=== PATIENT | female | born 1985 | race American Indian/Alaskan Native ===

== ENCOUNTER 2016-02-26 11:22 | Inpatient (IN) | payer MEDICARE ==
[2016-02-26] MEDS ORDERED: TYLENOL PO ONE (11:57)
--- NOTE | 2016-02-26 12:00 | Emergency Department Report ---
Chief Complaint: Chest Pain Stated Complaint: CHEST PAIN/LWR BACK /LT ARM PAIN Time Seen by Provider: 02/26/16 11:56 - HPI History of Present Illness: 30-year-old female with past medical history of sickle cell comes in for complaint of cold symptoms for 2 days she reports she is having chest pain and body aches and back pain with left arm pain. Patient reports she see her sickle cell were present more of her back and her arms but never her chest. Patient states she has episodic shortness of breath. Complains of a cough and vomiting denies any diarrhea patient is noted to have a fever in triage as well as patient reports she had a fever last night. - Exam Vital Signs: Vital Signs 02/26/16 11:37 Temperature 98.3 F Pulse Rate 119 H Respiratory 22 Rate Blood Pressure 134/73 O2 Sat by Pulse 100 Oximetry Physical Exam: Patient's alert and oriented 3. Patient's be uncomfortable. Vascular tachycardic Respiratory clear to auscultation there, Mid Chest tenderness. Extremities: No edema appreciated MSE screening note: Focused history and physical exam performed. Due to findings the following was ordered: ordered labs and cxr ED Disposition for MSE Condition: Stable
[2016-02-26 13:04] LABS: Hematocrit 30.8 % (30.3-42.9); Hemoglobin 9.8 gm/dl (10.1-14.3); Mean Corpuscular HGB Conc 32 % (30-34); Mean Corpuscular Volume 75 fl (79-97); Platelet Count 492 K/mm3 (140-440); Red Blood Count 4.08 M/mm3 (3.65-5.03); White Blood Count 10.3 K/mm3 (4.5-11.0)
[2016-02-26 13:05] LABS: Mean Corpuscular Hemoglobin 24 pg (28-32)
[2016-02-26 13:06] LABS: Red Cell Distribution Width 22.1 % (13.2-15.2)
[2016-02-26 13:45] LABS: Basophils % (Manual) 0 % (0.0-1.8); Blastocytes % (Manual) 0 %
[2016-02-26 13:46] LABS: Anisocytosis 1+; Diff Status Complete; Hypochromasia 1+; Microcytosis 1+; Poikilocytosis 1+; Spherocytes Few; Target Cells 2+
[2016-02-26 14:18] LABS: Alanine Aminotransferase 14 units/L (7-56); Albumin 3.9 g/dL (3.9-5); Albumin/Globulin Ratio 1.5 %; Alkaline Phosphatase 65 units/L (35-129); Bilirubin,Total 0.7 mg/dL (0.1-1.2); Blood Urea Nitrogen 5 mg/dL (7-17); Calcium 8.8 mg/dL (8.4-10.2); Carbon Dioxide 26 mmol/L (22-30); Chloride 99.8 mmol/L (98-107); Glucose 109 mg/dL (65-100); Potassium 4.2 mmol/L (3.6-5.0); Sodium 138 mmol/L (137-145); Total Protein 6.5 g/dL (6.3-8.2)
[2016-02-26 14:20] LABS: Anion Gap 16 mmol/L
--- NOTE | 2016-02-26 15:44 | XRay Report ---
PA and lateral chest: A focal area of linear atelectasis is noted at the left base. This was not present on prior study of December 28, 2015. The lungs otherwise appear clear the heart is normal in size. These findings are unchanged. Impression: Focal left atelectasis.
[2016-02-26] MEDS ORDERED: TORADOL IV ONE (16:59)
[2016-02-26] MEDS ORDERED: DILAUDID IV ONE (16:59)
[2016-02-26] MEDS ORDERED: BENADRYL IV ONE (16:59)
[2016-02-26] MEDS ORDERED: ZOFRAN IV ONE (16:59)
[2016-02-26] MEDS ORDERED: D5NS 0.2% 1,000 ML IV SCH (17:00)
[2016-02-26 18:01] LABS: Reticulocyte % 3.32 % (0.78-2.58)
[2016-02-26 18:12] LABS: INR 0.99 (0.87-1.13)
[2016-02-26 18:13] LABS: Partial Thromboplastin Time 29.2 Sec. (24.2-36.6)
--- NOTE | 2016-02-26 18:50 | Emergency Department Report ---
ED General Adult HPI - General Chief complaint: Chest Pain Stated complaint: CHEST PAIN/LWR BACK /LT ARM PAIN Time Seen by Provider: 02/26/16 11:56 Source: patient, old records reviewed Mode of arrival: Ambulatory Limitations: No Limitations - History of Present Illness Initial comments: 30-year-old female with past medical history of sickle cell disease and left arm DVT currently on Coumadin and presents to the hospital complains of cough and cold symptoms of sickle cell crisis with past 2 days. Patient states he is coughing which is productive of green sputum. Yesterday she had a fever 101.7 at home. She is having anterior chest wall pain worse with palpation rated 8/ 10 in intensity, lower back pain, and generalized body aches. No reports of nausea, vomiting, or diarrhea. Increased appetite and by mouth intake recorded. Patient takes MS Contin and Percocet at home as needed for pain. [place]ider oncologist: None Severity scale (0 -10): 10 - Related Data Previous Rx's Medication Instructions Recorded Last Taken Type Amitriptyline [Elavil] 25 mg PO QHS #30 tablet 04/07/15 12/27/15 Rx Folic Acid [Folvite] 1 mg PO QDAY tablet 05/05/15 12/27/15 Rx Morphine ER [Ms Contin ER] 30 mg PO Q8HR #30 tablet 05/05/15 12/27/15 Rx Multivitamin Tab [Multiple Vitamin 1 each PO QDAY tablet 05/05/15 12/27/15 Rx TAB (Theragran)] diphenhydrAMINE [Benadryl CAP] 25 mg PO Q6H PRN #30 capsule 05/05/15 12/27/15 Rx Warfarin [Coumadin] 7.5 mg PO QDAY #30 tablet 10/17/15 12/27/15 Rx oxyCODONE /ACETAMINOPHEN [Percocet 1 tab PO Q6HR PRN #20 tablet 01/01/16 Unknown Rx 5/325 mg] Allergies Allergy/AdvReac Type Severity Reaction Status Date / Time No Known Allergies Allergy Verified 03/29/15 20:45 ED Review of Systems ROS: Stated complaint: CHEST PAIN/LWR BACK /LT ARM PAIN Other details as noted in HPI Comment: All other systems reviewed and negative Other: Constitutional: As per HPI Eyes: No eye pain visual changes or discharge ENT: No ear pain or throat pain Neck: Denies pain Respiratory: As per HPI Cardiovascular: Denies palpitations, syncope GI: Denies abdominal pain, nausea, vomiting, diarrhea : Denies dysuria, urinary frequency, or urgency Musculoskeletal: As per HPI Skin: Denies rash, lesions, erythema Neurologic: Denies headache, numbness, weakness Psychiatric: Denies suicidal ideation, hallucinations ED Past Medical Hx - Past Medical History Previous Medical History?: Yes Hx Congestive Heart Failure: No Hx Diabetes: No Hx Sickle Cell Disease: Yes Hx Asthma: No Hx COPD: No Hx HIV: No Additional medical history: DVT left arm 07/2015 - Surgical History Past Surgical History?: Yes Additional Surgical History: X 2. TONSILLECTOMY - Social History Smoking Status: Never Smoker Substance Use Type: Prescribed - Medications Home Medications: Home Medications Medication Instructions Recorded Confirmed Last Taken Type Amitriptyline [Elavil] 25 mg PO QHS #30 tablet 04/07/15 12/28/15 12/27/15 Rx Folic Acid [Folvite] 1 mg PO QDAY tablet 05/05/15 12/28/15 12/27/15 Rx Morphine ER [Ms Contin ER] 30 mg PO Q8HR #30 tablet 05/05/15 12/28/15 12/27/15 Rx Multivitamin Tab [Multiple Vitamin 1 each PO QDAY tablet 05/05/15 12/28/1501/29 Rx TAB (Theragran)] diphenhydrAMINE [Benadryl CAP] 25 mg PO Q6H PRN #30 capsule 05/05/15 12/28/15 Rx Warfarin [Coumadin] 7.5 mg PO QDAY #30 tablet 10/17/15 12/28/15 12/27/15 Rx oxyCODONE /ACETAMINOPHEN [Percocet 1 tab PO Q6HR PRN #20 tablet 01/01/16 Unknown Rx 5/325 mg] ED Physical Exam - General Limitations: No Limitations - Other Other exam information: General: Moderate distress secondary to pain Head exam: Atraumatic, normocephalic Eyes exam: Normal appearance, pupils equal reactive to light, extraocular movements intact ENT: Moist mucous membrane, normal oropharynx Neck exam: Normal inspection, full range of motion, no meningismus nontender Respiratory exam: Clear to auscultation bilateral, no wheezes, rales, crackles, anterior chest wall tenderness Cardiovascular: Regular rhythm Abdomen: Soft, nondistended, and nontender, with normal bowel sounds, no rebound, or guarding Extremity: Full range of motion normal inspection no deformity Back: Normal Inspection, full range of motion Neurologic: Alert, oriented x3, cranial nerves intact, no motor or sensory deficit Psychiatric: normal affect, normal mood Skin: Warm, dry, intact ED Course Vital Signs 02/26/16 02/26/16 02/26/16 11:37 15:44 16:00 Temperature 98.3 F 98.4 F 98.6 F Pulse Rate 119 H 99 H 114 H Respiratory 22 18 18 Rate Blood Pressure 134/73 131/83 Blood Pressure 121/65 [Left] O2 Sat by Pulse 100 99 99 Oximetry 02/26/16 16:14 Temperature Pulse Rate Respiratory 18 Rate Blood Pressure Blood Pressure [Left] O2 Sat by Pulse 99 Oximetry - Reevaluation(s) Reevaluation #1: 02/26/16 18:49 Patient treated with Dilaudid, Toradol, IV fluids, Zofran, and Benadryl in the ED ED Medical Decision Making - Lab Data Result diagrams: 02/26/16 12:11 02/26/16 13:40 Lab Results 02/26/16 02/26/16 02/26/16 Range/Units 12:11 13:40 17:20 WBC 10.3 (4.5-11.0) K/mm3 RBC 4.08 (3.65-5.03) M/mm3 Hgb 9.8 L (10.1-14.3) gm/dl Hct 30.8 (30.3-42.9) % MCV 75 L (79-97) fl MCH 24 L (28-32) pg MCHC 32 (30-34) % RDW 22.1 H (13.2-15.2) % Plt Count 492 H (140-440) K/mm3 Lymph % (Auto) Roller Turner Lymph # Roller Turner Add Manual Diff Complete Total Counted 100 Seg Neuts % (Manual) 52.0 (40.0-70.0) % Band Neutrophils % 0 % Lymphocytes % (Manual) 37.0 H (13.4-35.0) % Reactive Lymphs % (Man) 0 % Monocytes % (Manual) 4.0 (0.0-7.3) % Eosinophils % (Manual) 7.0 H (0.0-4.3) % Basophils % (Manual) 0 (0.0-1.8) % Metamyelocytes % 0 % Myelocytes % 0 % Promyelocytes % 0 % Blast Cells % 0 % Nucleated RBC % 1.0 H (0.0-0.9) % Seg Neutrophils # Man 5.4 (1.8-7.7) K/mm3 Band Neutrophils # 0.0 K/mm3 Lymphocytes # (Manual) 3.8 (1.2-5.4) K/mm3 Abs React Lymphs (Man) 0.0 K/mm3 Monocytes # (Manual) 0.4 (0.0-0.8) K/mm3 Eosinophils # (Manual) 0.7 H (0.0-0.4) K/mm3 Basophils # (Manual) 0.0 (0.0-0.1) K/mm3 Metamyelocytes # 0.0 K/mm3 Myelocytes # 0.0 K/mm3 Promyelocytes # 0.0 K/mm3 Blast Cells # 0.0 K/mm3 WBC Morphology Not Reportable Hypersegmented Neuts Not Reportable Hyposegmented Neuts Not Reportable Hypogranular Neuts Not Reportable Smudge Cells Not Reportable Toxic Granulation Not Reportable Toxic Vacuolation Not Reportable Dohle Bodies Not Reportable Pelger-Huet Anomaly Not Reportable Manjula Rods Not Reportable Platelet Estimate Appears normal Clumped Platelets Not Reportable Plt Clumps, EDTA Not Reportable Large Platelets Not Reportable Giant Platelets Not Reportable Platelet Satelliting Not Reportable Plt Morphology Comment Not Reportable RBC Morphology Not Reportable Dimorphic RBCs Not Reportable Polychromasia Not Reportable Hypochromasia 1+ Poikilocytosis 1+ Anisocytosis 1+ Microcytosis 1+ Macrocytosis Not Reportable Spherocytes Few Pappenheimer Bodies Not Reportable Sickle Cells Not Reportable Target Cells 2+ Tear Drop Cells Not Reportable Ovalocytes Not Reportable Helmet Cells Not Reportable Starr-[place] Bodies Not Reportable [place] Rings Not Reportable Luke Cells Not Reportable Bite Cells Not Reportable Crenated Cell Not Reportable Elliptocytes Not Reportable Acanthocytes (Spur) Not Reportable Rouleaux Not Reportable Hemoglobin C Crystals Not Reportable Schistocytes Not Reportable Malaria parasites Not Reportable Percent Retic 3.32 H (0.78-2.58) % Jack Bodies Not Reportable Hem Pathologist Commnt No PT (12.2-14.9) Sec. INR (0.87-1.13) APTT (24.2-36.6) Sec. Sodium 138 (137-145) mmol/L Potassium 4.2 (3.6-5.0) mmol/L Chloride 99.8 (98-107) mmol/L Carbon Dioxide 26 (22-30) mmol/L Anion Gap 16 mmol/L BUN 5 L (7-17) mg/dL Creatinine 0.4 L (0.7-1.2) mg/dL Estimated GFR > 60 ml/min BUN/Creatinine Ratio 12.50 % Glucose 109 H (65-100) mg/dL Calcium 8.8 (8.4-10.2) mg/dL Total Bilirubin 0.7 (0.1-1.2) mg/dL AST 26 (5-40) units/L ALT 14 (7-56) units/L Alkaline Phosphatase 65 (35-129) units/L Total Protein 6.5 (6.3-8.2) g/dL Albumin 3.9 (3.9-5) g/dL Albumin/Globulin Ratio 1.5 % 02/26/16 Range/Units 17:20 WBC (4.5-11.0) K/mm3 RBC (3.65-5.03) M/mm3 Hgb (10.1-14.3) gm/dl Hct (30.3-42.9) % MCV (79-97) fl MCH (28-32) pg MCHC (30-34) % RDW (13.2-15.2) % Plt Count (140-440) K/mm3 Lymph % (Auto) Lymph # Add Manual Diff Total Counted Seg Neuts % (Manual) (40.0-70.0) % Band Neutrophils % % Lymphocytes % (Manual) (13.4-35.0) % Reactive Lymphs % (Man) % Monocytes % (Manual) (0.0-7.3) % Eosinophils % (Manual) (0.0-4.3) % Basophils % (Manual) (0.0-1.8) % Metamyelocytes % % Myelocytes % % Promyelocytes % % Blast Cells % % Nucleated RBC % (0.0-0.9) % Seg Neutrophils # Man (1.8-7.7) K/mm3 Band Neutrophils # K/mm3 Lymphocytes # (Manual) (1.2-5.4) K/mm3 Abs React Lymphs (Man) K/mm3 Monocytes # (Manual) (0.0-0.8) K/mm3 Eosinophils # (Manual) (0.0-0.4) K/mm3 Basophils # (Manual) (0.0-0.1) K/mm3 Metamyelocytes # K/mm3 Myelocytes # K/mm3 Promyelocytes # K/mm3 Blast Cells # K/mm3 WBC Morphology Hypersegmented Neuts Hyposegmented Neuts Hypogranular Neuts Smudge Cells Toxic Granulation Toxic Vacuolation Dohle Bodies Pelger-Huet Anomaly Manjula Rods Platelet Estimate Clumped Platelets Plt Clumps, EDTA Large Platelets Giant Platelets Platelet Satelliting Plt Morphology Comment RBC Morphology Dimorphic RBCs Polychromasia Hypochromasia Poikilocytosis Anisocytosis Microcytosis Macrocytosis Spherocytes Pappenheimer Bodies Sickle Cells Target Cells Tear Drop Cells Ovalocytes Helmet Cells Starr-[place] Bodies [place] Rings [place] Cells Bite Cells Crenated Cell Elliptocytes Acanthocytes (Spur) Rouleaux Hemoglobin C Crystals Schistocytes Malaria parasites Percent Retic (0.78-2.58) % Jack Bodies Hem Pathologist Commnt PT 13.0 (12.2-14.9) Sec. INR 0.99 (0.87-1.13) APTT 29.2 (24.2-36.6) Sec. Sodium (137-145) mmol/L Potassium (3.6-5.0) mmol/L Chloride (98-107) mmol/L Carbon Dioxide (22-30) mmol/L Anion Gap mmol/L BUN (7-17) mg/dL Creatinine (0.7-1.2) mg/dL Estimated GFR ml/min BUN/Creatinine Ratio % Glucose (65-100) mg/dL Calcium (8.4-10.2) mg/dL Total Bilirubin (0.1-1.2) mg/dL AST (5-40) units/L ALT (7-56) units/L Alkaline Phosphatase (35-129) units/L Total Protein (6.3-8.2) g/dL Albumin (3.9-5) g/dL Albumin/Globulin Ratio % - EKG Data -: EKG Interpreted by Me (sinus rate 117) - EKG Data When compared to previous EKG there are: no significant change (compared to ) - Radiology Data Radiology results: report reviewed (chest x-ray: Left focal atelectasis) - Medical Decision Making Patient has persistent tachycardia which could be due from decreased by mouth intake as well as pain. Denies subtherapeutic. Plan to admit patient to the hospital for further monitoring and treatment - Differential Diagnosis pneumonia, acute chest, viral syndrome, sickle cell crisis Critical Care Time: No Critical care attestation.: If time is entered above; I have spent that time in minutes in the direct care of this critically ill patient, excluding procedure time. ED Disposition Clinical Impression: Sickle-cell disease with pain, Hx of deep venous thrombosis, Subtherapeutic international normalized ratio (INR), URI (upper respiratory infection), Costochondritis Disposition: OP ADMITTED IP TO THIS HOSP Is pt being admited?: Yes Condition: Stable Time of Disposition: 18:53 (Dr rosado/hosp)
--- NOTE | 2016-02-27 00:42 | Event Note ---
Date: 02/26/16 See H/p in reports [facility]
[2016-02-27] MEDS ORDERED: TYLENOL PO PRN (00:46)
[2016-02-27] MEDS ORDERED: DULCOLAX PR PRN (00:46)
[2016-02-27] MEDS ORDERED: MILK OF MAGNESIA PO PRN (00:46)
[2016-02-27] MEDS ORDERED: AMBIEN PO PRN (00:46)
[2016-02-27] MEDS ORDERED: D5NS 0.2% 0 ML IV ONE (01:16)
[2016-02-27] MEDS ORDERED: DILAUDID ONE (01:17)
[2016-02-27] MEDS ORDERED: D5NS 1,000 ML IV ONE (01:28)
--- NOTE | 2016-02-27 01:28 | Admit Criteria Form ---
Admission Criteria Documentation: PAIN MANAGEMENT GR Clinical Indications for Admission to Inpatient Care (Place 'X' for any and all applicable criteria): Hospital admission is needed for appropriate care of the patient because of ANY ONE of the following are present (1)(2)(3)(4)(5): [X ]I. Severe pain requiring acute inpatient management as indicated by ALL of the following (2)(5)(10): [ X]a) Continuous or frequent (eg, every 2 to 4 hours) parenteral analgesics required [A] [ X]b) Necessity (ie, alternative approaches not effective) for analgesic regimen that can only be performed or initiated in inpatient setting [ ]II. Pain causing debilitation to the point of inability to function or be supported at any other level of care [ ]III. Severe side effects from pain medications as indicated by ANY ONE of the following (12)(13)(14)(15): [ ]a) Uncontrollable seizures [ ]b) Cardiac arrhythmias [ ]c) Severe volume depletion [ ]d) Vomiting that is uncontrollable at any other level of care [ ]e) Altered mental status ([place] coma scale score less than 13) [ ]f) Obstipation with inadequate GI function to maintain nutrition [ ]g) Dehydration that is severe or persistent The original [employer] content created by [employer] has been revised. The portions of the content which have been revised are identified through the use of italic text or in bold, and [facility] has neither reviewed nor approved the modified material. All other unmodified content is copyright [employer]. Please see references footnoted in the original [facility] edition 2016 Admission Criteria Met: Yes
[2016-02-27] MEDS ORDERED: BENADRYL PO ONE (01:40)
[2016-02-27] MEDS: D5NS 1,000 ML IV SCH ×2 (01:40→12:54)
[2016-02-27] MEDS: DILAUDID IV PRN ×5 (01:50→21:01)
[2016-02-27] MEDS: BENADRYL PO PRN ×4 (01:55→21:05)
[2016-02-27] MEDS: MS CONTIN ER PO SCH ×3 (03:41→17:23)
--- NOTE | 2016-02-27 07:43 | History and Physical Report ---
CHIEF COMPLAINT: Chest pain, lower back pain and pain all over for 2 days. HISTORY OF PRESENT ILLNESS: A 30-year-old -[place] female with history of sickle cell disease and a left DVT, comes in for severe retrosternal chest pain and pain in the lower back and thighs and in general all over. Pain is about 10 on a scale of 1-10. Anterior chest wall pain worse with palpation. Intensity is 10/10. The patient takes MS Contin and Percocet at home. No shortness of breath, no palpitations. PAST MEDICAL HISTORY: Significant for: 1. DVT in the left arm. 2. Sickle cell disease. PAST SURGICAL HISTORY: Significant for x 2, tonsillectomy x1. SOCIAL HISTORY: Does not smoke. No alcohol, no recreational drugs. FAMILY HISTORY: No hypertension, no diabetes. No sickle cell disease. Sickle cell trait present. CURRENT MEDICATIONS: Morphine 30 mg p.o. every 8 hours, Percocet 5/325 p.o. every 6 hours, and Coumadin 7.5 once a day. REVIEW OF SYSTEMS: Significant for; CONSTITUTIONAL: No weight loss, no weight gain. No fever, no chills. Low-grade fever present. HEENT: No blurred vision, no diplopia. No sore throat. CARDIOVASCULAR SYSTEM: Chest pain present. Retrosternal and precordial. Also, tenderness on palpation. No shortness of breath. RESPIRATORY SYSTEM: No cough. No shortness of breath. GASTROINTESTINAL: No nausea, no vomiting, no diarrhea. GENITOURINARY SYSTEM: No dysuria, no flank pain. MUSCULOSKELETAL SYSTEM: Low back pain mornings, myalgias allover present. INTEGUMENTARY SYSTEM: No rash, no pruritus, no redness. NEUROLOGICAL SYSTEM: No syncope, no seizures. PSYCHIATRIC: Depression present. ENDOCRINE: No polyphagia, polydipsia, polyuria. HEMATOLOGIC AND LYMPHATIC: No easy bruising or bleeding. No lymphedema. ALLERGIC AND IMMUNOLOGIC SYSTEMS: No allergic rhinitis, but wheezing. A 14-point review of systems was done. PHYSICAL EXAMINATION: GENERAL: Young male, cooperative during examination. VITAL SIGNS: Temperature 98.3, pulse is 119, respirations 22, blood pressure 134/73, sats 100%. HEENT: Unremarkable. Pupils equal and reactive. NECK: Supple, no lymphadenopathy, no thyromegaly. LUNGS: Clear to auscultation and percussion. Good air entry. CARDIOVASCULAR: S1, S2 heard. No gallop, no murmur, no rub. Apical impulse in left fifth intercostal space and midclavicular line. ABDOMEN: Soft and benign. No hepatosplenomegaly. No guarding, no rigidity. Hernial orifices are normal. EXTREMITIES: Good pedal pulses. No pedal edema. CENTRAL NERVOUS SYSTEM: Alert and oriented x 4, nonfocal exam. SKIN: Normal. LABORATORY DATA: H and H is 9.8 and 30.8, platelet count is 492,000. Retic count is 3.3, it is slightly high, BUN and creatinine 5 and 0.4, glucose is 109. Liver function tests are normal. Chest x-ray was normal. ASSESSMENT AND PLAN: 1. The sickle cell crisis. The patient started on IV fluids, IV Dilaudid 1 mg every 3 hours p.r.n. along with Zofran. Also, continue morphine 30 mg every 8 hours. Check retic count. 2. Left upper extremity deep venous thrombosis . Coumadin discontinued. The patient does not need Coumadin, it has been 7 months. We will do Lovenox 40 mg subcutaneous daily. At the time of discharge, the patient is not going to be on Coumadin and the patient will be counseled about the need to Coumadin not being there after 6 months for left upper extremity deep venous thrombosis. 3. Deep venous thrombosis prophylaxis, Lovenox 40 mg subcutaneous daily. JOB# [id number] BALDEMAR/REYMUNDO [place]
[2016-02-27] MEDS: THERAGRAN Tab PO SCH (09:24)
[2016-02-27] MEDS: FOLVITE PO SCH (09:26)
[2016-02-27] MEDS ORDERED: COUMADIN PO SCH (10:00)
[2016-02-27 15:19] LABS: Hematocrit 30.9 % (30.3-42.9); Hemoglobin 10.2 gm/dl (10.1-14.3); Mean Corpuscular HGB Conc 33 % (30-34); Mean Corpuscular Volume 74 fl (79-97); Platelet Count 535 K/mm3 (140-440); Red Blood Count 4.17 M/mm3 (3.65-5.03); White Blood Count 9.7 K/mm3 (4.5-11.0)
[2016-02-27 15:20] LABS: Mean Corpuscular Hemoglobin 24 pg (28-32)
[2016-02-27 15:25] LABS: Anion Gap 14 mmol/L; Blood Urea Nitrogen 5 mg/dL (7-17); Calcium 8.3 mg/dL (8.4-10.2); Carbon Dioxide 25 mmol/L (22-30); Chloride 105.3 mmol/L (98-107); Glucose 89 mg/dL (65-100); Potassium 4.2 mmol/L (3.6-5.0); Sodium 140 mmol/L (137-145)
[2016-02-27] MEDS: ELAVIL PO SCH (21:05)
[2016-02-27] MEDS: LOVENOX SUB-Q SCH (21:06)
[2016-02-28] MEDS: DILAUDID IV PRN ×8 (00:25→22:35)
[2016-02-28] MEDS: MS CONTIN ER PO SCH ×3 (01:56→19:12)
[2016-02-28] MEDS: BENADRYL PO PRN ×2 (06:29→22:34)
[2016-02-28 08:23] LABS: Anion Gap 17 mmol/L; BUN/Creatinine Ratio 13.33; Blood Urea Nitrogen 4 mg/dL (7-17); Calcium 8.5 mg/dL (8.4-10.2); Carbon Dioxide 24 mmol/L (22-30); Chloride 105.4 mmol/L (98-107); Glucose 83 mg/dL (65-100); Potassium 3.9 mmol/L (3.6-5.0); Sodium 142 mmol/L (137-145)
[2016-02-28 08:29] LABS: Hematocrit 29.8 % (30.3-42.9); Hemoglobin 9.9 gm/dl (10.1-14.3); Mean Corpuscular HGB Conc 33 % (30-34); Mean Corpuscular Volume 74 fl (79-97); Platelet Count 545 K/mm3 (140-440); Red Blood Count 4.02 M/mm3 (3.65-5.03); White Blood Count 10.8 K/mm3 (4.5-11.0)
[2016-02-28 08:31] LABS: Mean Corpuscular Hemoglobin 25 pg (28-32); Red Cell Distribution Width 22.8 % (13.2-15.2)
[2016-02-28] MEDS: THERAGRAN Tab PO SCH (09:37)
[2016-02-28] MEDS: FOLVITE PO SCH (09:37)
[2016-02-28 11:10] LABS: Basophils % (Manual) 0 % (0.0-1.8); Blastocytes % (Manual) 0 %
[2016-02-28 11:14] LABS: Anisocytosis 1+; Hypochromasia 1+
[2016-02-28 11:15] LABS: Platelet Estimate Consistent w Auto; Target Cells 2+
[2016-02-28 11:16] LABS: Diff Status Complete
--- NOTE | 2016-02-28 11:33 | Progress Note ---
Assessment and Plan Assessment and plan: 1. Sickle Cell Crisis continue pain meds, continue judicious fluids, hg stable DVT ppx- lovenox History Interval history: continues to have pains all over her body Hospitalist Physical - Physical exam Narrative exam: General: mild to moderate distress due to pain HEENT: MMM, EOMI cardiac: S1-S2 heard lungs: clear to auscultation, abdomen: soft, nontender, nondistended bowel sounds positive extremities: no edema clubbing or cyanosis Skin: no rash or lesion Neuro: no focal deficit Psych: appropriate behavior and mood, cognition intact - Constitutional Vitals: Temp Pulse Resp BP Pulse Ox 97.8 F 119 H 20 120/58 98 02/28/16 08:00 02/28/16 08:00 02/28/16 08:00 02/28/16 08:00 02/28/16 10:00 Results - Labs CBC & Chem 7: 02/28/16 06:54 02/28/16 06:54 Labs: Laboratory Last Values WBC 10.8 K/mm3 (4.5-11.0) 02/28/16 06:54 RBC 4.02 M/mm3 (3.65-5.03) 02/28/16 06:54 Hgb 9.9 gm/dl (10.1-14.3) L 02/28/16 06:54 Hct 29.8 % (30.3-42.9) L 02/28/16 06:54 MCV 74 fl (79-97) L 02/28/16 06:54 MCH 25 pg (28-32) L 02/28/16 06:54 MCHC 33 % (30-34) 02/28/16 06:54 RDW 22.8 % (13.2-15.2) H 02/28/16 06:54 Plt Count 545 K/mm3 (140-440) H 02/28/16 06:54 Lymph % (Auto) Director Hardware 02/28/16 06:54 Lymph # Director Hardware 02/28/16 06:54 Add Manual Diff Complete 02/28/16 06:54 Total Counted 100 02/28/16 06:54 Seg Neutrophils % Director Hardware 02/28/16 06:54 Seg Neuts % (Manual) 36.0 % (40.0-70.0) L 02/28/16 06:54 Band Neutrophils % 0 % 02/28/16 06:54 Lymphocytes % (Manual) 59.0 % (13.4-35.0) H 02/28/16 06:54 Reactive Lymphs % (Man) 0 % 02/28/16 06:54 Monocytes % (Manual) 3.0 % (0.0-7.3) 02/28/16 06:54 Eosinophils % (Manual) 2.0 % (0.0-4.3) 02/28/16 06:54 Basophils % (Manual) 0 % (0.0-1.8) 02/28/16 06:54 Metamyelocytes % 0 % 02/28/16 06:54 Myelocytes % 0 % 02/28/16 06:54 Promyelocytes % 0 % 02/28/16 06:54 Blast Cells % 0 % 02/28/16 06:54 Nucleated RBC % Not Reportable 02/28/16 06:54 Seg Neutrophils # Man 3.9 K/mm3 (1.8-7.7) 02/28/16 06:54 Band Neutrophils # 0.0 K/mm3 02/28/16 06:54 Lymphocytes # (Manual) 6.4 K/mm3 (1.2-5.4) H 02/28/16 06:54 Abs React Lymphs (Man) 0.0 K/mm3 02/28/16 06:54 Monocytes # (Manual) 0.3 K/mm3 (0.0-0.8) 02/28/16 06:54 Eosinophils # (Manual) 0.2 K/mm3 (0.0-0.4) 02/28/16 06:54 Basophils # (Manual) 0.0 K/mm3 (0.0-0.1) 02/28/16 06:54 Metamyelocytes # 0.0 K/mm3 02/28/16 06:54 Myelocytes # 0.0 K/mm3 02/28/16 06:54 Promyelocytes # 0.0 K/mm3 02/28/16 06:54 Blast Cells # 0.0 K/mm3 02/28/16 06:54 WBC Morphology Not Reportable 02/28/16 06:54 Hypersegmented Neuts Not Reportable 02/28/16 06:54 Hyposegmented Neuts Not Reportable 02/28/16 06:54 Hypogranular Neuts Not Reportable 02/28/16 06:54 Smudge Cells Not Reportable 02/28/16 06:54 Toxic Granulation Not Reportable 02/28/16 06:54 Toxic Vacuolation Not Reportable 02/28/16 06:54 Dohle Bodies Not Reportable 02/28/16 06:54 Pelger-Huet Anomaly Not Reportable 02/28/16 06:54 Manjula Rods Not Reportable 02/28/16 06:54 Platelet Estimate Consistent w auto 02/28/16 06:54 Clumped Platelets Not Reportable 02/28/16 06:54 Plt Clumps, EDTA Not Reportable 02/28/16 06:54 Large Platelets Not Reportable 02/28/16 06:54 Giant Platelets Not Reportable 02/28/16 06:54 Platelet Satelliting Not Reportable 02/28/16 06:54 Plt Morphology Comment Not Reportable 02/28/16 06:54 RBC Morphology Not Reportable 02/28/16 06:54 Dimorphic RBCs Not Reportable 02/28/16 06:54 Polychromasia Not Reportable 02/28/16 06:54 Hypochromasia 1+ 02/28/16 06:54 Poikilocytosis Not Reportable 02/28/16 06:54 Anisocytosis 1+ 02/28/16 06:54 Microcytosis Not Reportable 02/28/16 06:54 Macrocytosis Not Reportable 02/28/16 06:54 Spherocytes Not Reportable 02/28/16 06:54 Pappenheimer Bodies Not Reportable 02/28/16 06:54 Sickle Cells Not Reportable 02/28/16 06:54 Target Cells 2+ 02/28/16 06:54 Tear Drop Cells Not Reportable 02/28/16 06:54 Ovalocytes Not Reportable 02/28/16 06:54 Helmet Cells Not Reportable 02/28/16 06:54 Starr-[place] Bodies Not Reportable 02/28/16 06:54 [place] Rings Not Reportable 02/28/16 06:54 Luke Cells Not Reportable 02/28/16 06:54 Bite Cells Not Reportable 02/28/16 06:54 Crenated Cell Not Reportable 02/28/16 06:54 Elliptocytes Not Reportable 02/28/16 06:54 Acanthocytes (Spur) Not Reportable 02/28/16 06:54 Rouleaux Not Reportable 02/28/16 06:54 Hemoglobin C Crystals Not Reportable 02/28/16 06:54 Schistocytes Not Reportable 02/28/16 06:54 Malaria parasites Not Reportable 02/28/16 06:54 Percent Retic 3.32 % (0.78-2.58) H 02/26/16 17:20 Jack Bodies Not Reportable 02/28/16 06:54 Hem Pathologist Commnt Sent to pathology 02/28/16 06:54 PT 13.0 Sec. (12.2-14.9) 02/26/16 17:20 INR 0.99 (0.87-1.13) 02/26/16 17:20 APTT 29.2 Sec. (24.2-36.6) 02/26/16 17:20 Sodium 142 mmol/L (137-145) 02/28/16 06:54 Potassium 3.9 mmol/L (3.6-5.0) 02/28/16 06:54 Chloride 105.4 mmol/L (98-107) 02/28/16 06:54 Carbon Dioxide 24 mmol/L (22-30) 02/28/16 06:54 Anion Gap 17 mmol/L 02/28/16 06:54 BUN 4 mg/dL (7-17) L 02/28/16 06:54 Creatinine 0.3 mg/dL (0.7-1.2) L 02/28/16 06:54 Estimated GFR > 60 ml/min 02/28/16 06:54 BUN/Creatinine Ratio 13.33 % 02/28/16 06:54 Glucose 83 mg/dL (65-100) 02/28/16 06:54 Calcium 8.5 mg/dL (8.4-10.2) 02/28/16 06:54 Total Bilirubin 0.7 mg/dL (0.1-1.2) 02/26/16 13:40 AST 26 units/L (5-40) 02/26/16 13:40 ALT 14 units/L (7-56) 02/26/16 13:40 Alkaline Phosphatase 65 units/L (35-129) 02/26/16 13:40 Total Protein 6.5 g/dL (6.3-8.2) 02/26/16 13:40 Albumin 3.9 g/dL (3.9-5) 02/26/16 13:40 Albumin/Globulin Ratio 1.5 % 02/26/16 13:40
[2016-02-28] MEDS: D5NS 1,000 ML IV SCH (12:57)
[2016-02-28] MEDS: ZOFRAN IV PRN ×2 (19:14→22:36)
[2016-02-28] MEDS: LOVENOX SUB-Q SCH (22:33)
[2016-02-28] MEDS: ELAVIL PO SCH (22:34)
[2016-02-29] MEDS: MS CONTIN ER PO SCH ×3 (01:50→18:46)
[2016-02-29] MEDS: DILAUDID IV PRN ×4 (01:52→12:53)
[2016-02-29] MEDS: BENADRYL PO PRN (05:43)
[2016-02-29 08:02] LABS: Hematocrit 32.4 % (30.3-42.9); Hemoglobin 10.5 gm/dl (10.1-14.3); Mean Corpuscular HGB Conc 32 % (30-34); Mean Corpuscular Volume 74 fl (79-97); Platelet Count 551 K/mm3 (140-440); Red Blood Count 4.38 M/mm3 (3.65-5.03); White Blood Count 12.1 K/mm3 (4.5-11.0)
[2016-02-29 08:22] LABS: Mean Corpuscular Hemoglobin 24 pg (28-32); Red Cell Distribution Width 22.3 % (13.2-15.2)
[2016-02-29 08:23] LABS: BUN/Creatinine Ratio 13.33; Blood Urea Nitrogen 4 mg/dL (7-17); Calcium 8.6 mg/dL (8.4-10.2); Carbon Dioxide 22 mmol/L (22-30); Glucose 81 mg/dL (65-100)
[2016-02-29 08:24] LABS: Anion Gap 18 mmol/L; Chloride 104.4 mmol/L (98-107); Potassium 5.3 mmol/L (3.6-5.0); Sodium 139 mmol/L (137-145)
[2016-02-29 09:18] LABS: Basophils % (Manual) 0 % (0.0-1.8); Blastocytes % (Manual) 0 %
[2016-02-29 09:19] LABS: Anisocytosis 1+; Target Cells 3+
[2016-02-29 09:20] LABS: Diff Status Complete; Hypochromasia 1+
[2016-02-29] MEDS: FOLVITE PO SCH ×2 (09:20→09:26)
[2016-02-29] MEDS: ZOFRAN IV PRN (09:20)
[2016-02-29] MEDS: THERAGRAN Tab PO SCH ×2 (09:20→09:28)
--- NOTE | 2016-02-29 12:52 | Progress Note ---
Assessment and Plan Assessment and plan: 1. Sickle Cell Crisis change pain meds to PO, continue judicious fluids, hg stable DVT ppx- lovenox History Interval history: body pains are improved, denies nausea Hospitalist Physical - Physical exam Narrative exam: General: no distress HEENT: MMM, EOMI cardiac: S1-S2 heard lungs: clear to auscultation, abdomen: soft, nontender, nondistended bowel sounds positive extremities: no edema clubbing or cyanosis Skin: no rash or lesion Neuro: no focal deficit Psych: appropriate behavior and mood, cognition intact - Constitutional Vitals: Temp Pulse Resp BP Pulse Ox 97.7 F 92 H 20 126/71 100 02/29/16 08:00 02/29/16 08:00 02/29/16 08:00 02/29/16 08:00 02/29/16 08:00 Results - Labs CBC & Chem 7: 02/29/16 07:33 02/29/16 07:33 Labs: Laboratory Last Values WBC 12.1 K/mm3 (4.5-11.0) H 02/29/16 07:33 RBC 4.38 M/mm3 (3.65-5.03) 02/29/16 07:33 Hgb 10.5 gm/dl (10.1-14.3) 02/29/16 07:33 Hct 32.4 % (30.3-42.9) 02/29/16 07:33 MCV 74 fl (79-97) L 02/29/16 07:33 MCH 24 pg (28-32) L 02/29/16 07:33 MCHC 32 % (30-34) 02/29/16 07:33 RDW 22.3 % (13.2-15.2) H 02/29/16 07:33 Plt Count 551 K/mm3 (140-440) H 02/29/16 07:33 Lymph % (Auto) Specialty Development Consultant 02/28/16 06:54 Lymph # Specialty Development Consultant 02/29/16 07:33 Add Manual Diff Complete 02/29/16 07:33 Total Counted 100 02/29/16 07:33 Seg Neutrophils % Specialty Development Consultant 02/28/16 06:54 Seg Neuts % (Manual) 52.0 % (40.0-70.0) 02/29/16 07:33 Band Neutrophils % 0 % 02/29/16 07:33 Lymphocytes % (Manual) 37.0 % (13.4-35.0) H 02/29/16 07:33 Reactive Lymphs % (Man) 0 % 02/29/16 07:33 Monocytes % (Manual) 8.0 % (0.0-7.3) H 02/29/16 07:33 Eosinophils % (Manual) 3.0 % (0.0-4.3) 02/29/16 07:33 Basophils % (Manual) 0 % (0.0-1.8) 02/29/16 07:33 Metamyelocytes % 0 % 02/29/16 07:33 Myelocytes % 0 % 02/29/16 07:33 Promyelocytes % 0 % 02/29/16 07:33 Blast Cells % 0 % 02/29/16 07:33 Nucleated RBC % Not Reportable 02/29/16 07:33 Seg Neutrophils # Man 6.3 K/mm3 (1.8-7.7) 02/29/16 07:33 Band Neutrophils # 0.0 K/mm3 02/29/16 07:33 Lymphocytes # (Manual) 4.5 K/mm3 (1.2-5.4) 02/29/16 07:33 Abs React Lymphs (Man) 0.0 K/mm3 02/29/16 07:33 Monocytes # (Manual) 1.0 K/mm3 (0.0-0.8) H 02/29/16 07:33 Eosinophils # (Manual) 0.4 K/mm3 (0.0-0.4) 02/29/16 07:33 Basophils # (Manual) 0.0 K/mm3 (0.0-0.1) 02/29/16 07:33 Metamyelocytes # 0.0 K/mm3 02/29/16 07:33 Myelocytes # 0.0 K/mm3 02/29/16 07:33 Promyelocytes # 0.0 K/mm3 02/29/16 07:33 Blast Cells # 0.0 K/mm3 02/29/16 07:33 WBC Morphology Not Reportable 02/29/16 07:33 Hypersegmented Neuts Not Reportable 02/29/16 07:33 Hyposegmented Neuts Not Reportable 02/29/16 07:33 Hypogranular Neuts Not Reportable 02/29/16 07:33 Smudge Cells Not Reportable 02/29/16 07:33 Toxic Granulation Not Reportable 02/29/16 07:33 Toxic Vacuolation Not Reportable 02/29/16 07:33 Dohle Bodies Not Reportable 02/29/16 07:33 Pelger-Huet Anomaly Not Reportable 02/29/16 07:33 Manjula Rods Not Reportable 02/29/16 07:33 Platelet Estimate Not Reportable 02/29/16 07:33 Clumped Platelets Not Reportable 02/29/16 07:33 Plt Clumps, EDTA Not Reportable 02/29/16 07:33 Large Platelets Not Reportable 02/29/16 07:33 Giant Platelets Not Reportable 02/29/16 07:33 Platelet Satelliting Not Reportable 02/29/16 07:33 Plt Morphology Comment Not Reportable 02/29/16 07:33 RBC Morphology Not Reportable 02/29/16 07:33 Dimorphic RBCs Not Reportable 02/29/16 07:33 Polychromasia Not Reportable 02/29/16 07:33 Hypochromasia 1+ 02/29/16 07:33 Poikilocytosis Not Reportable 02/29/16 07:33 Anisocytosis 1+ 02/29/16 07:33 Microcytosis Not Reportable 02/29/16 07:33 Macrocytosis Not Reportable 02/29/16 07:33 Spherocytes Not Reportable 02/29/16 07:33 Pappenheimer Bodies Not Reportable 02/29/16 07:33 Sickle Cells Not Reportable 02/29/16 07:33 Target Cells 3+ 02/29/16 07:33 Tear Drop Cells Not Reportable 02/29/16 07:33 Ovalocytes Not Reportable 02/29/16 07:33 Helmet Cells Not Reportable 02/29/16 07:33 [place] Bodies Not Reportable 02/29/16 07:33 Harris Rings Not Reportable 02/29/16 07:33 Luke Cells Not Reportable 02/29/16 07:33 Bite Cells Not Reportable 02/29/16 07:33 Crenated Cell Not Reportable 02/29/16 07:33 Elliptocytes Not Reportable 02/29/16 07:33 Acanthocytes (Spur) Not Reportable 02/29/16 07:33 Rouleaux Not Reportable 02/29/16 07:33 Hemoglobin C Crystals Not Reportable 02/29/16 07:33 Schistocytes Not Reportable 02/29/16 07:33 Malaria parasites Not Reportable 02/29/16 07:33 Percent Retic 3.32 % (0.78-2.58) H 02/26/16 17:20 Jack Bodies Not Reportable 02/29/16 07:33 Hem Pathologist Commnt No 02/29/16 07:33 PT 13.0 Sec. (12.2-14.9) 02/26/16 17:20 INR 0.99 (0.87-1.13) 02/26/16 17:20 APTT 29.2 Sec. (24.2-36.6) 02/26/16 17:20 Sodium 139 mmol/L (137-145) 02/29/16 07:33 Potassium 5.3 mmol/L (3.6-5.0) H D 02/29/16 07:33 Chloride 104.4 mmol/L (98-107) 02/29/16 07:33 Carbon Dioxide 22 mmol/L (22-30) 02/29/16 07:33 Anion Gap 18 mmol/L 02/29/16 07:33 BUN 4 mg/dL (7-17) L 02/29/16 07:33 Creatinine 0.3 mg/dL (0.7-1.2) L 02/29/16 07:33 Estimated GFR > 60 ml/min 02/29/16 07:33 BUN/Creatinine Ratio 13.33 % 02/29/16 07:33 Glucose 81 mg/dL (65-100) 02/29/16 07:33 Calcium 8.6 mg/dL (8.4-10.2) 02/29/16 07:33 Total Bilirubin 0.7 mg/dL (0.1-1.2) 02/26/16 13:40 AST 26 units/L (5-40) 02/26/16 13:40 ALT 14 units/L (7-56) 02/26/16 13:40 Alkaline Phosphatase 65 units/L (35-129) 02/26/16 13:40 Total Protein 6.5 g/dL (6.3-8.2) 02/26/16 13:40 Albumin 3.9 g/dL (3.9-5) 02/26/16 13:40 Albumin/Globulin Ratio 1.5 % 02/26/16 13:40
[2016-02-29] MEDS ORDERED: ZOFRAN ODT PO PRN (13:13)
[2016-02-29] MEDS: ROXICODONE PO PRN (17:08)
[2016-02-29] MEDS: ELAVIL PO SCH (22:11)
[2016-02-29] MEDS: LOVENOX SUB-Q SCH (22:11)
[2016-03-01] MEDS: MS CONTIN ER PO SCH ×3 (03:08→09:22)
[2016-03-01] MEDS: ROXICODONE PO PRN ×2 (03:29→12:38)
[2016-03-01] MEDS: D5NS 1,000 ML IV SCH (03:30)
[2016-03-01 06:36] LABS: Mean Corpuscular Volume 74 fl (79-97)
[2016-03-01 06:51] LABS: Blood Urea Nitrogen 6 mg/dL (7-17); Calcium 8.9 mg/dL (8.4-10.2); Carbon Dioxide 23 mmol/L (22-30); Chloride 105.7 mmol/L (98-107); Glucose 82 mg/dL (65-100); Hematocrit 32.1 % (30.3-42.9); Hemoglobin 10.8 gm/dl (10.1-14.3); Mean Corpuscular HGB Conc 34 % (30-34); Platelet Count 581 K/mm3 (140-440); Potassium 3.8 mmol/L (3.6-5.0); Red Blood Count 4.36 M/mm3 (3.65-5.03); Sodium 143 mmol/L (137-145); White Blood Count 10.3 K/mm3 (4.5-11.0)
[2016-03-01 06:52] LABS: Anion Gap 18 mmol/L
[2016-03-01 07:00] LABS: Mean Corpuscular Hemoglobin 25 pg (28-32)
[2016-03-01 08:39] LABS: Anisocytosis 2+; Basophils % (Manual) 0 % (0.0-1.8); Blastocytes % (Manual) 0 %; Hypochromasia 1+
[2016-03-01 08:40] LABS: Poikilocytosis 1+; Target Cells 2+
[2016-03-01 08:41] LABS: Diff Status Complete; Spherocytes Few
--- NOTE | 2016-03-01 08:53 | Discharge Summary ---
Providers - Providers Date of Admission: 02/27/16 00:46 Attending physician: FABRICE CHRISTY MD Primary care physician: FORESTRY PATROLMAN Hospitalization Condition: Stable Hospital course: This is a 30-year-old woman who was admitted for sickle cell crisis pain. She was treated with pain medications and judicious IV fluids. Blood counts were stable and the rest of her labs also stable, infectious workup was negative. Patient's pain improved she is being sent home with pain management and outpatient follow-up with hematology Discharge diagnoses 1. Sickle cell crisis Disposition: DISCHARGED TO HOME OR SELFCARE Time spent for discharge: 35 minutes Core Measure Documentation - Palliative Care Palliative Care/ Comfort Measures: Not Applicable - Core Measures Any of the following diagnoses?: none Exam - Constitutional Vitals: Temp Pulse Resp BP Pulse Ox 98.4 F 92 H 18 127/69 98 03/01/16 08:00 03/01/16 08:00 03/01/16 08:00 03/01/16 08:00 03/01/16 08:00 General appearance: Present: no acute distress, well-nourished - EENT Eyes: Present: PERRL ENT: hearing intact, clear oral mucosa - Neck Neck: Present: supple, normal ROM - Respiratory Respiratory effort: normal Respiratory: bilateral: CTA - Cardiovascular Heart Sounds: Present: S1 & S2. Absent: rub, click - Extremities Extremities: pulses symmetrical, No edema Peripheral Pulses: within normal limits - Abdominal General gastrointestinal: Present: soft, non-tender, non-distended, normal bowel sounds Female genitourinary: Present: normal - Integumentary Integumentary: Present: clear, warm, dry - Musculoskeletal Musculoskeletal: gait normal, strength equal bilaterally - Psychiatric Psychiatric: appropriate mood/affect, intact judgment & insight - Neurologic Neurologic: CNII-XII intact, moves all extremities Plan Prescriptions: oxyCODONE /ACETAMINOPHEN [Percocet 5/325 mg] 1 tab PO Q6HR PRN #20 tablet PRN Reason: Pain
[2016-03-01] MEDS: THERAGRAN Tab PO SCH (09:23)
[2016-03-01] MEDS: FOLVITE PO SCH (09:23)
[2016-03-01 13:17] VITALS: BP 135/77
== END 2016-03-01 14:26 | disposition home or self-care (01) | DRG 812 ==
LOC: ED 11:22 → 3A 02-27 00:46
PROVIDERS: ADMIT Internal Medicine; ATTEND Internal Medicine
DX: D57.00 Hb-SS disease with crisis, unspecified (principal); Z79.01 Long term (current) use of anticoagulants; Z86.718 Personal history of other venous thrombosis and embolism; Z79.899 Other long term (current) drug therapy; Z90.89 Acquired absence of other organs; Z84.89 Family history of other specified conditions
CPT/HCPCS: 36415; 71020; 80048; 80053; 85007; 85025; 85027; 85045; 85610; 85730; 93005; 93010; 96361; 96374; 96375; J1170; J1200; J1650; J1885; J2405; J7042

== ENCOUNTER 2016-03-20 00:33 | Emergency (ER) | payer MEDICARE ==
[2016-03-20] MEDS ORDERED: D5NS 0.2% 1,000 ML IV ONE (01:18)
[2016-03-20 01:44] LABS: Hematocrit 34.3 % (30.3-42.9); Hemoglobin 11.3 gm/dl (10.1-14.3); Mean Corpuscular HGB Conc 33 % (30-34); Mean Corpuscular Volume 73 fl (79-97); Platelet Count 520 K/mm3 (140-440); Red Blood Count 4.71 M/mm3 (3.65-5.03); Reticulocyte % 3.38 % (0.78-2.58); White Blood Count 11.2 K/mm3 (4.5-11.0)
[2016-03-20 01:51] LABS: Mean Corpuscular Hemoglobin 24 pg (28-32); Red Cell Distribution Width 21.9 % (13.2-15.2)
[2016-03-20 02:05] LABS: Alanine Aminotransferase 14 units/L (7-56); Albumin 4.2 g/dL (3.9-5); Albumin/Globulin Ratio 1.4 %; Alkaline Phosphatase 63 units/L (35-129); Bilirubin,Total 0.9 mg/dL (0.1-1.2); Blood Urea Nitrogen 8 mg/dL (7-17); Calcium 8.9 mg/dL (8.4-10.2); Carbon Dioxide 22 mmol/L (22-30); Chloride 101.8 mmol/L (98-107); Glucose 111 mg/dL (65-100); Potassium 3.7 mmol/L (3.6-5.0); Sodium 139 mmol/L (137-145); Total Protein 7.3 g/dL (6.3-8.2)
[2016-03-20 02:12] LABS: Anion Gap 19 mmol/L
[2016-03-20 02:41] LABS: Anisocytosis 1+; Basophils % (Manual) 0 % (0.0-1.8); Blastocytes % (Manual) 0 %; Hypochromasia 1+
[2016-03-20 02:42] LABS: Diff Status Complete; Platelet Estimate Appears Increased; Smudge Cells Few; Spherocytes Few; Target Cells 2+
--- NOTE | 2016-03-20 06:38 | Emergency Department Report ---
HPI - General Chief Complaint: Sickle Cell Crisis Time Seen by Provider: 03/20/16 06:01 - HPI HPI: This is a 30-year-old -[place] female who presents to the emergency department with a one-day history of pain to the right arm, legs, and lower abdomen. Patient says that the pain in the extremities is typical for her sickle cell pain crisis but she usually does not get it in the abdomen. She denies any dysuria, vaginal bleeding, vaginal discharge. She has nausea but no vomiting. She said that she had a fever yesterday with a MAXIMUM TEMPERATURE of 101 Fahrenheit. She is on folic acid, hydroxyurea, and Percocet for pain but has not gotten any relief. No recent travel or sick contacts at home. 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 Her pain is currently 10 out of 10 in intensity and an aching sensation. No current aggravating or alleviating factors. ED Past Medical Hx - Past Medical History Previous Medical History?: Yes Hx Congestive Heart Failure: No Hx Diabetes: No Hx Deep Vein Thrombosis: Yes (left arm) Hx Sickle Cell Disease: Yes Hx Asthma: No Hx COPD: No Hx HIV: No Additional medical history: DVT left arm 07/2015 - Surgical History Past Surgical History?: Yes Additional Surgical History: X 2. TONSILLECTOMY - Social History Smoking Status: Never Smoker - Medications Home Medications: Home Medications Medication Instructions Recorded Confirmed Last Taken Type Amitriptyline [Elavil] 25 mg PO QHS #30 tablet 04/07/15 12/28/15 12/27/15 Rx Folic Acid [Folvite] 1 mg PO QDAY tablet 05/05/15 12/28/15 12/27/15 Rx Morphine ER [Ms Contin ER] 30 mg PO Q8HR #30 tablet 05/05/15 12/28/15 12/27/15 Rx Multivitamin Tab [Multiple Vitamin 1 each PO QDAY tablet 05/05/15 12/28/1501/29 Rx TAB (Theragran)] diphenhydrAMINE [Benadryl CAP] 25 mg PO Q6H PRN #30 capsule 05/05/15 12/28/15 Rx oxyCODONE /ACETAMINOPHEN [Percocet 1 tab PO Q6HR PRN #12 tablet 03/20/16 Unknown Rx 5/325 mg] ED Review of Systems ROS: Stated complaint: SICKLE CELL PAIN Other details as noted in HPI Comment: All other systems reviewed and negative Constitutional: fever. denies: weakness Eyes: denies: eye pain, eye discharge, vision change ENT: denies: ear pain, throat pain Respiratory: denies: cough, shortness of breath, wheezing Cardiovascular: denies: chest pain, palpitations Gastrointestinal: abdominal pain, nausea Genitourinary: denies: urgency, dysuria, discharge Musculoskeletal: arthralgia, myalgia. denies: back pain Skin: denies: rash, lesions Neurological: denies: headache, weakness, paresthesias Physical Exam - Physical Exam Vital Signs: Vital Signs 03/20/16 03/20/16 03/20/16 01:14 06:00 06:28 Temperature 98.9 F Pulse Rate 89 87 Respiratory 18 18 18 Rate Blood Pressure 131/92 Blood Pressure 123/79 [Left] O2 Sat by Pulse 100 100 100 Oximetry Physical Exam: GENERAL: The patient is well-developed well-nourished. HEENT: Normocephalic. Atraumatic. Extraocular motions are intact. Patient has moist mucous membranes. Pupils equal reactive to light bilaterally. NECK: Supple. Trachea is midline. CHEST/LUNGS: Clear to auscultation. There is no respiratory distress noted. HEART/CARDIOVASCULAR: Regular. There is no tachycardia. There is no gallop rub or murmur. ABDOMEN: Abdomen is soft. Tenderness to palpation to the lower quadrants of the abdomen. No guarding or rebound tenderness. No peritoneal signs. Patient has normal bowel sounds. There is no abdominal distention. SKIN: There is no rash. There is no edema. There is no diaphoresis. NEURO: The patient is awake, alert, and oriented. The patient is cooperative. The patient has no focal neurologic deficits. The patient has normal speech. MUSCULOSKELETAL: There is no tenderness or deformity. There is no limitation range of motion. There is no evidence of acute injury. Cap refill less than 2 seconds. ED Course Vital Signs 03/20/16 03/20/16 03/20/16 01:14 06:00 06:28 Temperature 98.9 F Pulse Rate 89 87 Respiratory 18 18 18 Rate Blood Pressure 131/92 Blood Pressure 123/79 [Left] O2 Sat by Pulse 100 100 100 Oximetry - EJ/Peripheral Line Arm R Time Out Performed: Yes Indications: nurses unable to establis Skin Cleansed in Sterile Fashion: Yes Size: 22 Dressing Placed: Tegaderm, tape Patient Tolerated Procedure: well ED Medical Decision Making - Lab Data Result diagrams: 03/20/16 01:24 03/20/16 01:24 - Radiology Data Radiology results: report reviewed, image reviewed interpreted by me: Abdomen x-ray does not show any acute process including no signs of obstruction or any free air. CT of the abdomen and pelvis shows a cyst of the right adnexa and gaseous colon with stool in colon. - Medical Decision Making 30-year-old female with a history of sickle cell presents with pain to the arm, legs as well as some lower abdomen pain. She's labs show some anemia but not one that requires transfusion. She has slightly elevated reticulocyte count but it is consistent with previous visits. She was given IV fluid resuscitation and pain medication. She received 1 via peripheral IV but the IV blew and the second dose was IM. Patient was reevaluated multiple times and is feeling much better. She did not have any significant leukocytosis, only 11, 000. No significant electrolyte abnormalities. Normal belly labs including bilirubin, lipase and LFT. No urinary tract infection and the patient is not . Due to the patient's abdominal pain location in the lower quadrants, a CT of the abdomen and pelvis was done to rule out appendicitis. There was no appendicitis and a CT was read as of the right adnexa and gaseous colon with stool in the colon. Patient will be discharged home with some pain medication as well as multiple referrals for primary care. She will return to the ER with any worsening of her symptoms or any acute distress. Vital signs stable including being afebrile. - Differential Diagnosis sickle cell pain crisis, appendicitis, UTI, Critical Care Time: No Critical care attestation.: If time is entered above; I have spent that time in minutes in the direct care of this critically ill patient, excluding procedure time. ED Disposition Clinical Impression: Sickle cell pain crisis, Adnexal cyst Sickle cell anemia Qualifiers: Sickle-cell associated disorders: with unspecified crisis Qualified Code(s): D57.00 - Hb-SS disease with crisis, unspecified Abdominal pain Qualifiers: Abdominal location: lower abdomen, unspecified Qualified Code(s): R10.30 - Lower abdominal pain, unspecified Disposition: DISCHARGED TO HOME OR SELFCARE Is pt being admited?: No Condition: Stable Instructions: Sickle Cell Crisis (ED), Abdominal Pain (ED) Additional Instructions: Please follow-up with a primary care doctor in the next few days. I have given referral for multiple to choose from but you can always call your insurance company and ask who takes your insurance. Return to the emergency department with any worsening of your symptoms or any acute distress. You've been prescribed a medication that is sedating. Therefore this medication cannot be mixed with alcohol, or taken prior to driving, working, or being responsible for children. Prescriptions: oxyCODONE /ACETAMINOPHEN [Percocet 5/325 mg] 1 tab PO Q6HR PRN #12 tablet PRN Reason: Pain Referrals: PRIMARY CARE, [Primary Care Provider] - 3-5 Days KATHI LAWRENCE MD [Staff Physician] - 3-5 Days LEONARDO HUANG MD [Staff Physician] - 3-5 Days JULEE COLLINS MD [Staff Physician] - 3-5 Days Time of Disposition: 13:05
[2016-03-20 07:19] LABS: Bilirubin,Urine NEG (Negative); Blood,Urine NEG (Negative); Ketones,Urine NEG (Negative); Leukocyte Esterase,Urine NEG (Negative); Mucus,Urine FEW /HPF; Nitrite,Urine NEG (Negative); Protein,Urine <15 mg/dL mg/dL (Negative); Urobilinogen,Urine < 2.0 mg/dL (<2.0)
[2016-03-20] MEDS ORDERED: DILAUDID IV ONE (07:43)
[2016-03-20] MEDS ORDERED: BENADRYL IV ONE (07:43)
--- NOTE | 2016-03-20 09:18 | XRay Report ---
Abdomen 2 views: History: Abdominal pain. Findings: No free intraperitoneal air. No bowel distention or wall thickening. Stool in colon. No radiopaque calculus or abnormal calcification. Impression: Essentially negative abdomen.
[2016-03-20] MEDS ORDERED: DILAUDID IM ONE (11:37)
--- NOTE | 2016-03-20 12:25 | Cat Scan Report ---
CT scan of abdomen and pelvis without IV contrast: History: Lower abdominal pain rule out appendicitis. Findings: Normal liver. Spleen is not visualized. Normal pancreas. Patient status post cholecystectomy. Normal adrenals and kidney parenchyma. No calculi or evidence of hydronephrosis. Normal bladder. No free intraperitoneal fluid. No evidence of adenopathy. 2.2 cm cyst right adnexa. Normal appendix. Gaseous colon with stool in colon predominantly seen in the ascending colon. Impression: Cyst right adnexa. Gaseous colon with stool in colon.
[2016-03-20 13:46] VITALS: BP 108/50
== END 2016-03-20 13:46 | disposition home or self-care (01) ==
LOC: ED 00:33
DX: D57.00 Hb-SS disease with crisis, unspecified (principal); N83.209 Unspecified ovarian cyst, unspecified side; R10.30 Lower abdominal pain, unspecified
CPT/HCPCS: 36415; 36569; 74020; 74176; 80053; 81001; 81025; 85007; 85025; 85045; 96372; 96374; 96375; 99284; J1170; J1200

== ENCOUNTER 2016-04-10 12:03 | Inpatient (IN) | payer MEDICARE ==
[2016-04-10 13:27] LABS: Basophils % (Auto) 0.4 % (0.0-1.8); Eosinophils % (Auto) 3.7 % (0.0-4.3); Hematocrit 29.6 % (30.3-42.9); Hemoglobin 10.1 gm/dl (10.1-14.3); Mean Corpuscular HGB Conc 34 % (30-34); Mean Corpuscular Volume 70 fl (79-97); Platelet Count 346 K/mm3 (140-440); Red Blood Count 4.23 M/mm3 (3.65-5.03); Reticulocyte % 3.78 % (0.78-2.58); White Blood Count 9.5 K/mm3 (4.5-11.0)
[2016-04-10 13:30] LABS: Mean Corpuscular Hemoglobin 24 pg (28-32)
[2016-04-11] MEDS ORDERED: ZOFRAN IV ONE (00:52)
[2016-04-11] MEDS ORDERED: TORADOL IV ONE (00:52)
[2016-04-11] MEDS ORDERED: DILAUDID IV ONE ×3 (00:52→04:16)
[2016-04-11] MEDS ORDERED: BENADRYL IV ONE (00:52)
--- NOTE | 2016-04-11 01:35 | Emergency Department Report ---
ED General Adult HPI - General Chief complaint: Sickle Cell Crisis Stated complaint: SICKLE CELL PAIN Time Seen by Provider: 04/11/16 00:45 Source: patient Mode of arrival: Ambulatory Limitations: No Limitations - History of Present Illness Initial comments: 30 yo female with a past medical history DVT to the left arm, and sickle cell disease presents hospital complaints of pain secondary to sickle cell crisis. Patient complains of pain to left arm and left leg for 2 days. She's taken Percocet and MS Contin without improvement. He denies weakness, numbness, chest pain, shortness of breath, or fever. Patient has had multiple recent visits to the ER this is her fourth visit this month. 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 BRETT thomas. Patient is a difficult stick and does not have a port - Related Data Previous Rx's Medication Instructions Recorded Last Taken Type Nitrofurantoin Floyd/M-Cryst 100 mg PO Q12HR #10 capsule 03/27/16 Unknown Rx [Macrobid CAP] Ondansetron [Zofran Odt] 4 mg PO Q8HR PRN #20 tab.rapdis 03/27/16 Unknown Rx oxyCODONE /ACETAMINOPHEN [Percocet 1 tab PO Q6HR PRN #20 tablet 03/27/16 Unknown Rx 5/325 mg] Allergies Allergy/AdvReac Type Severity Reaction Status Date / Time No Known Allergies Allergy Verified 04/10/16 12:53 ED Review of Systems ROS: Stated complaint: SICKLE CELL PAIN Other details as noted in HPI Comment: All other systems reviewed and negative Other: Constitutional: No fevers chills Eyes: No eye pain visual changes ENT: No ear pain or throat pain Neck: Denies pain Respiratory: Denies cough wheezing shortness of breath Cardiovascular: Denies chest pain, palpitations, syncope GI: Denies abdominal pain, nausea, vomiting, diarrhea : Denies dysuria Musculoskeletal: As per HPI Skin: Denies rash, lesions, erythema Neurologic: Denies headache, numbness, weakness Psychiatric: Denies suicidal ideation, hallucinations ED Past Medical Hx - Past Medical History Hx Congestive Heart Failure: No Hx Diabetes: No Hx Deep Vein Thrombosis: Yes (left arm) Hx Sickle Cell Disease: Yes Hx Asthma: No Hx COPD: No Hx HIV: No Additional medical history: DVT left arm 07/2015 - Surgical History Hx Cholecystectomy: Yes Additional Surgical History: X 2. TONSILLECTOMY , spleen and gall bladder - Social History Smoking Status: Never Smoker Substance Use Type: None - Medications Home Medications: Home Medications Medication Instructions Recorded Confirmed Last Taken Type Nitrofurantoin Floyd/M-Cryst 100 mg PO Q12HR #10 capsule 03/27/16 Unknown Rx [Macrobid CAP] Ondansetron [Zofran Odt] 4 mg PO Q8HR PRN #20 tab.rapdis 03/27/16 Unknown Rx oxyCODONE /ACETAMINOPHEN [Percocet 1 tab PO Q6HR PRN #20 tablet 03/27/16 Unknown Rx 5/325 mg] ED Physical Exam - General Limitations: No Limitations - Other Other exam information: General: No limitations, patient is alert in no acute distress Head exam: Atraumatic, normocephalic Eyes exam: Normal appearance ENT: Moist mucous membrane, normal oropharynx Neck exam: Normal inspection, full range of motion, no meningismus nontender Respiratory exam: Clear to auscultation bilateral, no wheezes, rales, crackles Cardiovascular: Normal rate and rhythm, normal heart sounds Abdomen: Soft, nondistended, and nontender, with normal bowel sounds, no rebound, or guarding Extremity: Full range of motion normal inspection no deformity Back: Normal Inspection, full range of motion, no tenderness Neurologic: Alert, oriented x3, cranial nerves intact, no motor or sensory deficit Psychiatric: normal affect, normal mood Skin: Warm, dry, intact ED Course Vital Signs 04/10/16 04/11/16 04/11/16 12:53 01:00 03:58 Temperature 98.7 F 98.8 F 98.4 F Pulse Rate 102 H 109 H 105 H Respiratory 20 18 18 Rate Blood Pressure 136/80 Blood Pressure 131/77 138/82 [Left] O2 Sat by Pulse 97 99 99 Oximetry - Reevaluation(s) Reevaluation #1: 04/11/16 01:34 Dilaudid, Toradol, Zofran and Benadryl ordered ED Medical Decision Making - Lab Data Result diagrams: 04/10/16 13:05 Lab Results 04/10/16 Range/Units 13:05 WBC 9.5 (4.5-11.0) K/mm3 RBC 4.23 (3.65-5.03) M/mm3 Hgb 10.1 (10.1-14.3) gm/dl Hct 29.6 L (30.3-42.9) % MCV 70 L (79-97) fl MCH 24 L (28-32) pg MCHC 34 (30-34) % RDW 21.0 H (13.2-15.2) % Plt Count 346 (140-440) K/mm3 Lymph % (Auto) 44.5 H (13.4-35.0) % Floyd % (Auto) 12.7 H (0.0-7.3) % Eos % (Auto) 3.7 (0.0-4.3) % Baso % (Auto) 0.4 (0.0-1.8) % Lymph # 4.2 (1.2-5.4) K/mm3 Floyd # 1.2 H (0.0-0.8) K/mm3 Eos # 0.4 (0.0-0.4) K/mm3 Baso # 0.0 (0.0-0.1) K/mm3 Seg Neutrophils % 38.7 L (40.0-70.0) % Seg Neutrophils # 3.7 (1.8-7.7) K/mm3 Percent Retic 3.78 H (0.78-2.58) % - Medical Decision Making Despite multiple doses of Dilaudid 2 mg patient continues to have significant pain and requesting admission at this time for intractable pain secondary to sickle cell crisis. Patient does not require a transfusion at this time based on current H&H - Differential Diagnosis sickle cell crisis, anemia, drug-seeking, infection Critical Care Time: No Critical care attestation.: If time is entered above; I have spent that time in minutes in the direct care of this critically ill patient, excluding procedure time. ED Disposition Clinical Impression: Vaso-occlusive sickle cell crisis Disposition: OP ADMITTED IP TO THIS HOSP Is pt being admited?: Yes Condition: Stable Time of Disposition: 05:09 (Dr Sidhu/hosp)
[2016-04-11] MEDS: D5NS 0.2% 1,000 ML IV SCH ×2 (02:32→21:26)
[2016-04-11] MEDS ORDERED: MORPHINE PO PRN (05:40)
[2016-04-11] MEDS ORDERED: ZOFRAN IV PRN (05:40)
[2016-04-11] MEDS ORDERED: DULCOLAX PR PRN (05:40)
[2016-04-11] MEDS ORDERED: MILK OF MAGNESIA PO PRN (05:40)
--- NOTE | 2016-04-11 05:46 | History and Physical Report ---
History of Present Illness Date of examination: 04/11/16 History of present illness: 30-year-old woman with a history of sickle cell comes emergency room with complaining of left arm pain and left leg pain. She describes the pain as a day , constant, no radiation, intensity 9/10, not relieved with her medications at home. She had a history of DVT in the left arm, Coumadin was discontinued in February Patient denies chest pain, palpitation, shortness of breath, cough, abdominal pain, hematochezia, dysuria, frequency, focal weakness, dysarthria, fever chills , polydipsia polyuria, hot or cold intolerance, easy bruisability, or rash or bleeding from mucosal membrane, rhinorrhea, epistaxis, earache, tinnitus, blurry vision, eye discharge, anxiety, depression. Other review of systems negative PAST SURGICAL HISTORY: None SOCIAL HISTORY: Denies alcohol, tobacco, drugs FAMILY HISTORY: Sickle cell Medications and Allergies Allergies Allergy/AdvReac Type Severity Reaction Status Date / Time No Known Allergies Allergy Verified 04/10/16 12:53 Home Medications Medication Instructions Recorded Confirmed Last Taken Type Nitrofurantoin [place]/M-Cryst 100 mg PO Q12HR #10 capsule 03/27/16 Unknown Rx [Macrobid CAP] Ondansetron [Zofran Odt] 4 mg PO Q8HR PRN #20 tab.rapdis 03/27/16 Unknown Rx oxyCODONE /ACETAMINOPHEN [Percocet 1 tab PO Q6HR PRN #20 tablet 03/27/16 Unknown Rx 5/325 mg] Active Meds: Active Medications Dextrose/Sodium Chloride (D5ns 0.2%) 1,000 mls @ 250 mls/hr IV DIRECT MARTÍNEZ Last Admin: 04/11/16 02:32 Dose: 250 mls/hr Exam - Physical Exam Narrative exam: Gen. appearance: Patient lying in bed, no apparent distress HEENT: Normocephalic, atraumatic, pupils equally round and reactive to light, extraocular movement intact, and no sclericterus,. No JVD or thyromegaly or nodule,neck supple, no carotid bruit ,mucous membranes moist, no exudate or erythema Heart: S1, S2, regular rate and rhythm Lungs: Clear to auscultation bilaterally, breathing comfortable Abdomen: Positive bowel sounds, nontender, nondistended, no organomegaly Extremity: No edema, cyanosis, clubbing Skin: No rash, nodules, warm, dry Neuro: Oriented 3, cranial nerves II-12 intact, speech is fluent, motor and sensory intact - Constitutional Vitals: Temp Pulse Resp BP Pulse Ox 98.4 F 105 H 18 138/82 99 04/11/16 03:58 04/11/16 03:58 04/11/16 03:58 04/11/16 03:58 04/11/16 03:58 Results - Labs CBC & Chem 7: 04/10/16 13:05 Labs: Abnormal lab results 04/10/16 Range/Units 13:05 Hct 29.6 L (30.3-42.9) % MCV 70 L (79-97) fl MCH 24 L (28-32) pg RDW 21.0 H (13.2-15.2) % Lymph % (Auto) 44.5 H (13.4-35.0) % [place] % (Auto) 12.7 H (0.0-7.3) % [place] # 1.2 H (0.0-0.8) K/mm3 Seg Neutrophils % 38.7 L (40.0-70.0) % Percent Retic 3.78 H (0.78-2.58) % Assessment and Plan Sickle cell crisis Admits medicine Start IV fluid, IV pain medication, check Doppler of the upper of the extremity Start DVT prophylaxis
[2016-04-11] MEDS ORDERED: D5/0.45NS 1,000 ML IV SCH (06:00)
--- NOTE | 2016-04-11 06:36 | Admit Criteria Form ---
Admission Criteria Documentation: SICKLE CELL DISEASE Clinical Indications for Admission to Inpatient Care (Place 'X' for any and all applicable criteria): Admission is indicated for ANY ONE of the following(1)(2)(3)(4)(5): [X ]I. Inpatient admission required rather than observation care because of ANY ONE of the following: [ ]a) Altered mental status [ ]b) High fever or infection requiring inpatient admission as indicated by ANY ONE of the following: [ ]A. Appropriate outpatient observation care antimicrobial treatment unavailable, not effective, or not appropriate for infection [ ]B. Documented bacteremia [ ]C. Temp >104.9F (40.5C) (oral) [ ]D. Temp >103.1F (oral) or <96.8F(rectal) that does not respond to all emergency treatment measures [ ]c) Supplemental O2 or respiratory therapy for over 24 h that are performable only in acute inpatient setting [ ]d) Continuous parenteral narcoticsother major pain intervention for >24 h performable only in acute inpatient setting. [ ]e) Exchange transfusion [X ]f) Other condition, treatment or monitoring requiring inpatient admission [ ]II. Acute chest syndrome indicated by ALL of the following (10): [ ]a) New alveolar infiltrate involving at least one lung segment [ ]b) Associated pulmonary symptoms or findings as indicated by ANY ONE of the following: [ ]i) Chest pain [ ]ii) Hypoxemia [ ]iii) Tachypnea/dyspnea [ ]iv) Wheezing [ ]v) Cough [ ]vi) Sputum production [ ]III. Significant hypoxemia or acidosis (more severe than baseline) [ ]IV. Emergent surgery needed (eg, acute cholecystitis) [ ]V. -related complication(11) [ ]. Splenic or hepatic sequestration(12) [ ]VII. Aplastic crisis [ ]VIII. Priapism or other vascular complication(13) [ ]IX. Traumatic hyphema [A](14) [ ]X. Underlying condition requiring hospitalization (eg, osteomyelitis) [ ]XI. Signs or symptoms of central nervous system injury indicated by ANY ONE of the following: [ ]a) Stroke(9) [ ]b) Seizure [ ]c) Other significant central nervous system symptom or event [ ]XII. Acute renal failure Extended stay beyond goal length of stay may be needed for: [ ]a) Inadequate pain control [ ]b) Acute chest syndrome [ ]c) Sequestration or aplastic crisis (12) [ ]d) Pneumonia and asthma exacerbation [ ]e) Neurologic or vascular complications (25) [ ]f) Infection (eg, osteomyelitis) that requires ongoing treatment) The original [facility] [employer] content [facility] by [facility] has been revised. The portions of the content which have been revised are identified through the use of italic text or in bold, and [facility] has neither reviewed nor approved the modified material. All other unmodified content is copyright [facility]. Please see references footnoted in the original [facility] 2016 Admission Criteria Met: Yes
[2016-04-11 06:49] LABS: Anion Gap 19 mmol/L; Blood Urea Nitrogen 3 mg/dL (7-17); Calcium 8.5 mg/dL (8.4-10.2); Carbon Dioxide 20 mmol/L (22-30); Chloride 103.4 mmol/L (98-107); Glucose 131 mg/dL (65-100); Potassium 3.8 mmol/L (3.6-5.0); Sodium 139 mmol/L (137-145)
[2016-04-11] MEDS: OxyCONTIN PO SCH ×3 (07:54→22:25)
[2016-04-11] MEDS: MORPHINE IV PRN ×4 (09:34→20:04)
[2016-04-11] MEDS: LOVENOX SUB-Q SCH (12:04)
[2016-04-11] MEDS: FOLVITE PO SCH (12:04)
[2016-04-11] MEDS: THERAGRAN Tab PO SCH (12:05)
[2016-04-11] MEDS: BENADRYL IV PRN ×2 (12:10→18:12)
--- NOTE | 2016-04-11 13:30 | Progress Note ---
Assessment and Plan Assessment and plan: 1. Sickle cell vaso-occlusive crisis. Continue IV fluid hydration and pain medications. 2. Left upper extremity pain. Upper extremity Doppler is negative for DVT. 3. DVT prophylaxis. Lovenox daily. History Interval history: 30-year-old woman with a history of sickle cell comes emergency room with complaining of left arm pain and left leg pain. Hospitalist Physical - Constitutional Vitals: Temp Pulse Resp BP Pulse Ox 98.7 F 111 H 22 118/65 98 04/11/16 09:35 04/11/16 09:35 04/11/16 09:35 04/11/16 09:35 04/11/16 09:35 General appearance: Present: no acute distress, well-nourished - EENT Eyes: Present: PERRL, EOM intact ENT: hearing intact, clear oral mucosa, dentition normal - Neck Neck: Present: supple, normal ROM - Respiratory Respiratory effort: normal Respiratory: bilateral: CTA - Cardiovascular Rhythm: regular Heart Sounds: Present: S1 & S2. Absent: gallop, rub - Extremities Extremities: no ischemia, No edema, Full ROM - Abdominal General gastrointestinal: soft, non-tender, non-distended, normal bowel sounds - Integumentary Integumentary: Present: clear, warm, dry - Neurologic Neurologic: CNII-XII intact, moves all extremities Results - Labs CBC & Chem 7: 04/10/16 13:05 04/11/16 06:12 Labs: Laboratory Last Values WBC 9.5 K/mm3 (4.5-11.0) 04/10/16 13:05 RBC 4.23 M/mm3 (3.65-5.03) 04/10/16 13:05 Hgb 10.1 gm/dl (10.1-14.3) 04/10/16 13:05 Hct 29.6 % (30.3-42.9) L 04/10/16 13:05 MCV 70 fl (79-97) L 04/10/16 13:05 MCH 24 pg (28-32) L 04/10/16 13:05 MCHC 34 % (30-34) 04/10/16 13:05 RDW 21.0 % (13.2-15.2) H 04/10/16 13:05 Plt Count 346 K/mm3 (140-440) 04/10/16 13:05 Lymph % (Auto) 44.5 % (13.4-35.0) H 04/10/16 13:05 [place] % (Auto) 12.7 % (0.0-7.3) H 04/10/16 13:05 Eos % (Auto) 3.7 % (0.0-4.3) 04/10/16 13:05 Baso % (Auto) 0.4 % (0.0-1.8) 04/10/16 13:05 Lymph # 4.2 K/mm3 (1.2-5.4) 04/10/16 13:05 [place] # 1.2 K/mm3 (0.0-0.8) H 04/10/16 13:05 Eos # 0.4 K/mm3 (0.0-0.4) 04/10/16 13:05 Baso # 0.0 K/mm3 (0.0-0.1) 04/10/16 13:05 Seg Neutrophils % 38.7 % (40.0-70.0) L 04/10/16 13:05 Seg Neutrophils # 3.7 K/mm3 (1.8-7.7) 04/10/16 13:05 Percent Retic 3.78 % (0.78-2.58) H 04/10/16 13:05 Sodium 139 mmol/L (137-145) 04/11/16 06:12 Potassium 3.8 mmol/L (3.6-5.0) 04/11/16 06:12 Chloride 103.4 mmol/L (98-107) 04/11/16 06:12 Carbon Dioxide 20 mmol/L (22-30) L 04/11/16 06:12 Anion Gap 19 mmol/L 04/11/16 06:12 BUN 3 mg/dL (7-17) L 04/11/16 06:12 Creatinine 0.5 mg/dL (0.7-1.2) L 04/11/16 06:12 Estimated GFR > 60 ml/min 04/11/16 06:12 BUN/Creatinine Ratio 6.00 % 04/11/16 06:12 Glucose 131 mg/dL (65-100) H 04/11/16 06:12 Calcium 8.5 mg/dL (8.4-10.2) 04/11/16 06:12
[2016-04-11] MEDS: SENOKOT PO SCH (22:25)
[2016-04-12] MEDS: MORPHINE IV PRN ×5 (00:25→21:15)
[2016-04-12] MEDS: BENADRYL IV PRN ×4 (00:25→21:14)
[2016-04-12] MEDS: D5NS 0.2% 1,000 ML IV SCH ×2 (05:05→16:28)
[2016-04-12] MEDS: OxyCONTIN PO SCH ×3 (06:27→21:13)
--- NOTE | 2016-04-12 08:41 | Progress Note ---
Assessment and Plan Assessment and plan: 1. Sickle cell vaso-occlusive crisis. Continue IV fluid hydration and pain medications. 2. Left upper extremity pain. Upper extremity Doppler is negative for DVT. 3. DVT prophylaxis. Lovenox daily. History Interval history: 30-year-old woman with a history of sickle cell comes emergency room with complaining of left arm pain and left leg pain. Hospitalist Physical - Constitutional Vitals: Temp Pulse Resp BP Pulse Ox 98.2 F 92 H 18 122/71 97 04/12/16 00:00 04/12/16 00:00 04/12/16 07:27 04/12/16 00:00 04/12/16 00:00 General appearance: Present: no acute distress, well-nourished - EENT Eyes: Present: PERRL, EOM intact ENT: hearing intact, clear oral mucosa, dentition normal - Neck Neck: Present: supple, normal ROM - Respiratory Respiratory effort: normal Respiratory: bilateral: CTA - Cardiovascular Rhythm: regular Heart Sounds: Present: S1 & S2. Absent: gallop, rub - Extremities Extremities: no ischemia, No edema, Full ROM - Abdominal General gastrointestinal: soft, non-tender, non-distended, normal bowel sounds - Integumentary Integumentary: Present: clear, warm, dry - Neurologic Neurologic: CNII-XII intact, moves all extremities Results - Labs CBC & Chem 7: 04/10/16 13:05 04/11/16 06:12 Labs: Laboratory Last Values WBC 9.5 K/mm3 (4.5-11.0) 04/10/16 13:05 RBC 4.23 M/mm3 (3.65-5.03) 04/10/16 13:05 Hgb 10.1 gm/dl (10.1-14.3) 04/10/16 13:05 Hct 29.6 % (30.3-42.9) L 04/10/16 13:05 MCV 70 fl (79-97) L 04/10/16 13:05 MCH 24 pg (28-32) L 04/10/16 13:05 MCHC 34 % (30-34) 04/10/16 13:05 RDW 21.0 % (13.2-15.2) H 04/10/16 13:05 Plt Count 346 K/mm3 (140-440) 04/10/16 13:05 Lymph % (Auto) 44.5 % (13.4-35.0) H 04/10/16 13:05 [place] % (Auto) 12.7 % (0.0-7.3) H 04/10/16 13:05 Eos % (Auto) 3.7 % (0.0-4.3) 04/10/16 13:05 Baso % (Auto) 0.4 % (0.0-1.8) 04/10/16 13:05 Lymph # 4.2 K/mm3 (1.2-5.4) 04/10/16 13:05 [place] # 1.2 K/mm3 (0.0-0.8) H 04/10/16 13:05 Eos # 0.4 K/mm3 (0.0-0.4) 04/10/16 13:05 Baso # 0.0 K/mm3 (0.0-0.1) 04/10/16 13:05 Seg Neutrophils % 38.7 % (40.0-70.0) L 04/10/16 13:05 Seg Neutrophils # 3.7 K/mm3 (1.8-7.7) 04/10/16 13:05 Percent Retic 3.78 % (0.78-2.58) H 04/10/16 13:05 Sodium 139 mmol/L (137-145) 04/11/16 06:12 Potassium 3.8 mmol/L (3.6-5.0) 04/11/16 06:12 Chloride 103.4 mmol/L (98-107) 04/11/16 06:12 Carbon Dioxide 20 mmol/L (22-30) L 04/11/16 06:12 Anion Gap 19 mmol/L 04/11/16 06:12 BUN 3 mg/dL (7-17) L 04/11/16 06:12 Creatinine 0.5 mg/dL (0.7-1.2) L 04/11/16 06:12 Estimated GFR > 60 ml/min 04/11/16 06:12 BUN/Creatinine Ratio 6.00 % 04/11/16 06:12 Glucose 131 mg/dL (65-100) H 04/11/16 06:12 Calcium 8.5 mg/dL (8.4-10.2) 04/11/16 06:12
[2016-04-12] MEDS: FOLVITE PO SCH (10:08)
[2016-04-12] MEDS: THERAGRAN Tab PO SCH (10:08)
[2016-04-12] MEDS: LOVENOX SUB-Q SCH ×2 (10:08→10:17)
[2016-04-12] MEDS: SENOKOT PO SCH (21:12)
[2016-04-13] MEDS: MORPHINE IV PRN ×5 (01:35→18:57)
[2016-04-13] MEDS: D5NS 0.2% 1,000 ML IV SCH ×3 (01:37→19:07)
[2016-04-13] MEDS: BENADRYL IV PRN ×3 (03:13→16:08)
[2016-04-13] MEDS: OxyCONTIN PO SCH ×3 (05:42→22:17)
[2016-04-13] MEDS: THERAGRAN Tab PO SCH (09:12)
[2016-04-13] MEDS: FOLVITE PO SCH (09:13)
[2016-04-13] MEDS: LOVENOX SUB-Q SCH (09:13)
--- NOTE | 2016-04-13 13:38 | Vascular Lab Report ---
RIGHT UPPER EXTREMITY VENOUS DUPLEX: REASON FOR EXAM: Pain and swelling of the right upper extremity COMMENTS ON THE RIGHT: All arm veins visualized are freely compressible without evidence of internal echogenicity. The subclavian and internal jugular veins are free of thrombus. Flow is spontaneous and phasic throughout. COMMENTS ON THE LEFT: The subclavian and internal jugular veins are free of thrombus. IMPRESSION: No evidence of acute or chronic deep venous thrombosis in the right upper extremity.
--- NOTE | 2016-04-13 13:49 | Progress Note ---
Assessment and Plan Assessment and plan: 1. Sickle cell anemia with painful crisis- LT upper arm pain-will cont morphine / oxycodone; trial of toradol IV; cotn folic acid; venous doppler negative Sickle cell vaso-occlusive crisis. Continue IV fluid hydration and pain medications. 2. DVT prophylaxis. Lovenox daily. For possible d/c in the a.m History Interval history: f/u sickle cell disease with painful crisis Patient seen at the bedside, she continues to complain of severe pain in the left arm. Hospitalist Physical - Constitutional Vitals: Temp Pulse Resp BP Pulse Ox 98.4 F 90 18 134/80 98 04/13/16 08:00 04/13/16 08:00 04/13/16 08:00 04/13/16 08:00 04/13/16 08:00 General appearance: Present: no acute distress, well-nourished - EENT Eyes: Present: PERRL, EOM intact. Absent: scleral icterus, conjunctival injection ENT: hearing intact, clear oral mucosa, no oropharyngeal erythema, no poor dentition - Neck Neck: Present: supple, normal ROM. Absent: enlarged thyroid, masses or JVD - Respiratory Respiratory effort: normal Respiratory: negative: diminished, rales, rhonchi, wheezing - Cardiovascular Rhythm: regular Heart Sounds: Present: S1 & S2. Absent: gallop - Extremities Extremities: no ischemia, pulses intact, pulses symmetrical, No edema, normal temperature, normal color Peripheral Pulses: within normal limits - Abdominal General gastrointestinal: soft, non-tender, non-distended, normal bowel sounds - Integumentary Integumentary: Present: clear - Psychiatric Psychiatric: appropriate mood/affect, intact judgment & insight, cooperative - Neurologic Neurologic: CNII-XII intact, moves all extremities Results - Labs CBC & Chem 7: 04/10/16 13:05 04/11/16 06:12 Labs: Laboratory Last Values WBC 9.5 K/mm3 (4.5-11.0) 04/10/16 13:05 RBC 4.23 M/mm3 (3.65-5.03) 04/10/16 13:05 Hgb 10.1 gm/dl (10.1-14.3) 04/10/16 13:05 Hct 29.6 % (30.3-42.9) L 04/10/16 13:05 MCV 70 fl (79-97) L 04/10/16 13:05 MCH 24 pg (28-32) L 04/10/16 13:05 MCHC 34 % (30-34) 04/10/16 13:05 RDW 21.0 % (13.2-15.2) H 04/10/16 13:05 Plt Count 346 K/mm3 (140-440) 04/10/16 13:05 Lymph % (Auto) 44.5 % (13.4-35.0) H 04/10/16 13:05 [place] % (Auto) 12.7 % (0.0-7.3) H 04/10/16 13:05 Eos % (Auto) 3.7 % (0.0-4.3) 04/10/16 13:05 Baso % (Auto) 0.4 % (0.0-1.8) 04/10/16 13:05 Lymph # 4.2 K/mm3 (1.2-5.4) 04/10/16 13:05 [place] # 1.2 K/mm3 (0.0-0.8) H 04/10/16 13:05 Eos # 0.4 K/mm3 (0.0-0.4) 04/10/16 13:05 Baso # 0.0 K/mm3 (0.0-0.1) 04/10/16 13:05 Seg Neutrophils % 38.7 % (40.0-70.0) L 04/10/16 13:05 Seg Neutrophils # 3.7 K/mm3 (1.8-7.7) 04/10/16 13:05 Percent Retic 3.78 % (0.78-2.58) H 04/10/16 13:05 Sodium 139 mmol/L (137-145) 04/11/16 06:12 Potassium 3.8 mmol/L (3.6-5.0) 04/11/16 06:12 Chloride 103.4 mmol/L (98-107) 04/11/16 06:12 Carbon Dioxide 20 mmol/L (22-30) L 04/11/16 06:12 Anion Gap 19 mmol/L 04/11/16 06:12 BUN 3 mg/dL (7-17) L 04/11/16 06:12 Creatinine 0.5 mg/dL (0.7-1.2) L 04/11/16 06:12 Estimated GFR > 60 ml/min 04/11/16 06:12 BUN/Creatinine Ratio 6.00 % 04/11/16 06:12 Glucose 131 mg/dL (65-100) H 04/11/16 06:12 Calcium 8.5 mg/dL (8.4-10.2) 04/11/16 06:12
[2016-04-13] MEDS: TORADOL IV PRN ×2 (16:08→22:16)
[2016-04-13] MEDS: PEPCID PO SCH (16:09)
[2016-04-13] MEDS: SENOKOT PO SCH (22:17)
[2016-04-14] MEDS: MORPHINE IV PRN ×3 (00:38→15:28)
[2016-04-14] MEDS: BENADRYL IV PRN ×3 (00:38→15:29)
[2016-04-14] MEDS: D5NS 0.2% 1,000 ML IV SCH ×2 (01:42→10:05)
[2016-04-14] MEDS: OxyCONTIN PO SCH ×2 (05:46→14:16)
[2016-04-14] MEDS: PEPCID PO SCH (09:00)
[2016-04-14] MEDS: FOLVITE PO SCH (09:00)
[2016-04-14] MEDS: THERAGRAN Tab PO SCH (09:00)
[2016-04-14] MEDS: LOVENOX SUB-Q SCH (09:01)
--- NOTE | 2016-04-14 10:38 | Discharge Summary ---
Providers - Providers Date of Admission: 04/11/16 05:40 Date of discharge: 04/14/16 Attending physician: KARL MURRELL Primary care physician: MAINSTREAMING FACILITATOR Hospitalization Reason for admission: sickle cell in painful crisis Condition: Stable Hospital course: Miss Eaton presented to the emergency room and sickle cell painful crisis. She was started on IV fluids and IV narcotics. Her pain improved. She also complained of pain in the left arm and venous Doppler was negative for DVT. 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 Condition at discharge-stable 32 minutes spent preparing discharge Disposition: DISCHARGED TO HOME OR SELFCARE - Discharge Diagnoses (1) Vaso-occlusive sickle cell crisis Status: Acute Core Measure Documentation - Palliative Care Palliative Care/ Comfort Measures: Not Applicable - Core Measures Any of the following diagnoses?: none Exam - Constitutional Vitals: Temp Pulse Resp BP Pulse Ox 98.9 F 89 20 105/62 97 04/14/16 08:00 04/14/16 08:00 04/14/16 09:28 04/14/16 08:00 04/14/16 08:00 General appearance: Present: no acute distress, well-nourished - EENT Eyes: Present: PERRL, EOM intact. Absent: scleral icterus, conjunctival injection ENT: hearing intact, clear oral mucosa, no oropharyngeal erythema, no poor dentition - Neck Neck: Present: supple, normal ROM. Absent: enlarged thyroid, masses or JVD - Respiratory Respiratory effort: normal Respiratory: negative: diminished, rales, rhonchi, wheezing - Cardiovascular Rhythm: regular Heart Sounds: Present: S1 & S2. Absent: gallop Peripheral Pulses: within normal limits - Abdominal General gastrointestinal: Present: soft, non-tender, non-distended Female genitourinary: Present: deferred - Rectal Rectal Exam: deferred - Integumentary Integumentary: Present: clear - Musculoskeletal Musculoskeletal: strength equal bilaterally - Psychiatric Psychiatric: appropriate mood/affect - Neurologic Neurologic: CNII-XII intact, moves all extremities Plan Activity: no restrictions Diet: regular Follow up with: PRIMARY CARE, [Primary Care Provider] - 7 Days BRITNI SOLARES DO [Staff Physician] - 7 Days Prescriptions: Famotidine [Pepcid] 20 mg PO QDAY #14 tablet Morphine [Morphine TAB] 15 mg PO Q4H PRN #15 tablet PRN Reason: Pain, Moderate (4-6) Multivitamin Tab [Multiple Vitamin TAB (Theragran)] 1 each PO QDAY #30 tablet oxyCODONE /ACETAMINOPHEN [Percocet 5/325 mg] 1 tab PO Q6HR PRN #20 tablet PRN Reason: Pain
[2016-04-14] MEDS: TORADOL IV PRN (12:14)
[2016-04-14 17:12] VITALS: BP 122/58
== END 2016-04-14 17:26 | disposition home or self-care (01) | DRG 812 ==
LOC: ED 12:03 → 3A 04-11 05:40
PROVIDERS: ADMIT Internal Medicine; ATTEND Hospitalist
DX: D57.00 Hb-SS disease with crisis, unspecified (principal); Z86.718 Personal history of other venous thrombosis and embolism; Z90.49 Acquired absence of other specified parts of digestive tract
CPT/HCPCS: 36415; 80048; 85025; 85045; 96374; 96375; 96376; J1170; J1200; J1650; J1885; J2270; J2405

== ENCOUNTER 2016-05-27 18:40 | Emergency (ER) | payer MEDICARE ==
[2016-05-27] MEDS ORDERED: D5NS 0.2% 1,000 ML IV SCH (20:00)
[2016-05-27] MEDS ORDERED: TORADOL IV ONE (20:36)
[2016-05-27] MEDS ORDERED: DILAUDID IV ONE ×2 (20:36→23:28)
[2016-05-27] MEDS ORDERED: BENADRYL IV ONE ×2 (20:36→23:28)
[2016-05-27 22:30] LABS: Hematocrit 32.7 % (30.3-42.9); Hemoglobin 10.7 gm/dl (10.1-14.3); Mean Corpuscular HGB Conc 33 % (30-34); Mean Corpuscular Volume 75 fl (79-97); Platelet Count 625 K/mm3 (140-440); Red Blood Count 4.38 M/mm3 (3.65-5.03); Reticulocyte % 2.63 % (0.78-2.58); White Blood Count 12.3 K/mm3 (4.5-11.0)
[2016-05-27 22:33] LABS: Mean Corpuscular Hemoglobin 24 pg (28-32); Red Cell Distribution Width 23.3 % (13.2-15.2)
--- NOTE | 2016-05-27 23:27 | Emergency Department Report ---
ED General Adult HPI - General Chief complaint: Sickle Cell Crisis Stated complaint: SICKLE CELL CRISIS Time Seen by Provider: 05/27/16 20:31 Source: patient Mode of arrival: Ambulatory Limitations: No Limitations - History of Present Illness -: Gradual Location: upper extremity Radiation: non-radiation Severity scale (0 -10): 7 Quality: aching, sharp Consistency: constant Improves with: none Worsens with: none Associated Symptoms: denies: confusion, chest pain, cough, diaphoresis, fever/ chills, headaches, loss of appetite, malaise, nausea/vomiting, rash, seizure, shortness of breath, syncope, weakness Treatments Prior to Arrival: none - Related Data Previous Rx's Medication Instructions Recorded Last Taken Type Ondansetron [Zofran ODT TAB] 4 mg PO Q8HR PRN #20 tab.rapdis 03/27/16 Unknown Rx Famotidine [Pepcid] 20 mg PO QDAY #14 tablet 04/14/16 Unknown Rx Folic Acid [Folvite] 1 mg PO QDAY #30 tablet 04/14/16 Unknown Rx Morphine [Morphine TAB] 15 mg PO Q4H PRN #15 tablet 04/14/16 Unknown Rx Multivitamin Tab [Multiple Vitamin 1 each PO QDAY #30 tablet 04/14/16 Unknown Rx TAB (Theragran)] oxyCODONE /ACETAMINOPHEN [Percocet 1 tab PO Q6HR PRN #20 tablet 04/14/16 Unknown Rx 5/325 mg] Allergies Allergy/AdvReac Type Severity Reaction Status Date / Time No Known Allergies Allergy Verified 04/10/16 12:53 ED Review of Systems ROS: Stated complaint: SICKLE CELL CRISIS Other details as noted in HPI Constitutional: denies: chills, fever Eyes: denies: eye pain, eye discharge, vision change ENT: denies: ear pain, throat pain Respiratory: denies: cough, shortness of breath, wheezing Cardiovascular: denies: chest pain, palpitations Endocrine: no symptoms reported Gastrointestinal: denies: abdominal pain, nausea, diarrhea Genitourinary: denies: urgency, dysuria, discharge Musculoskeletal: denies: back pain, joint swelling, arthralgia Skin: denies: rash, lesions Neurological: denies: headache, weakness, paresthesias Psychiatric: denies: anxiety, depression Hematological/Lymphatic: denies: easy bleeding, easy bruising ED Past Medical Hx - Past Medical History Hx Congestive Heart Failure: No Hx Diabetes: No Hx Deep Vein Thrombosis: Yes (lt arm) Hx Sickle Cell Disease: Yes Hx Asthma: No Hx COPD: No Hx HIV: No Additional medical history: DVT left arm 07/2015 - Surgical History Hx Cholecystectomy: Yes Additional Surgical History: X 2. TONSILLECTOMY , spleen and gall bladder - Social History Smoking Status: Never Smoker Substance Use Type: None - Medications Home Medications: Home Medications Medication Instructions Recorded Confirmed Last Taken Type Ondansetron [Zofran ODT TAB] 4 mg PO Q8HR PRN #20 tab.rapdis 03/27/16 04/13/16 Unknown Rx Famotidine [Pepcid] 20 mg PO QDAY #14 tablet 04/14/16 Unknown Rx Folic Acid [Folvite] 1 mg PO QDAY #30 tablet 04/14/16 Unknown Rx Morphine [Morphine TAB] 15 mg PO Q4H PRN #15 tablet 04/14/16 Unknown Rx Multivitamin Tab [Multiple Vitamin 1 each PO QDAY #30 tablet 04/14/16 Unknown Rx TAB (Theragran)] oxyCODONE /ACETAMINOPHEN [Percocet 1 tab PO Q6HR PRN #20 tablet 04/14/16 Unknown Rx 5/325 mg] ED Physical Exam - General Limitations: No Limitations General appearance: alert, in no apparent distress - Head Head exam: Present: atraumatic, normocephalic - Eye Eye exam: Present: normal appearance - ENT ENT exam: Present: mucous membranes moist - Neck Neck exam: Present: normal inspection - Respiratory Respiratory exam: Present: normal lung sounds bilaterally. Absent: respiratory distress - Cardiovascular Cardiovascular Exam: Present: regular rate, normal rhythm. Absent: systolic murmur, diastolic murmur, rubs, gallop - GI/Abdominal GI/Abdominal exam: Present: soft, normal bowel sounds - Extremities Exam Extremities exam: Present: normal inspection, full ROM, tenderness, normal capillary refill. Absent: pedal edema, joint swelling, calf tenderness - Back Exam Back exam: Present: normal inspection - Neurological Exam Neurological exam: Present: alert, oriented X3 - Psychiatric Psychiatric exam: Present: normal affect, normal mood - Skin Skin exam: Present: warm, dry, intact, normal color. Absent: rash ED Course Vital Signs 05/27/16 05/27/16 05/27/16 19:40 21:44 22:45 Temperature 97.8 F Pulse Rate 100 H 76 84 Respiratory 16 16 16 Rate Blood Pressure 128/83 Blood Pressure 128/83 157/103 113/66 [Left] O2 Sat by Pulse 100 97 97 Oximetry ED Medical Decision Making - Lab Data Result diagrams: 05/27/16 20:56 - Medical Decision Making patient doing well, pain controlled , no indications of chest pain syndrome or severe sickle cell crisis, will dc and follow up, she does not need any prescription Critical care attestation.: If time is entered above; I have spent that time in minutes in the direct care of this critically ill patient, excluding procedure time. ED Disposition Clinical Impression: Arm pain, Vaso-occlusive sickle cell crisis, Sickle-cell disease with pain Disposition: DISCHARGED TO HOME OR SELFCARE Is pt being admited?: No Does the pt Need Aspirin: No Condition: Good Instructions: Sickle Cell Crisis (ED) Referrals: PRIMARY CARE, [Primary Care Provider] - 3-5 Days Time of Disposition: 23:26
[2016-05-27 23:50] VITALS: BP 141/99
== END 2016-05-27 23:57 | disposition home or self-care (01) ==
LOC: ED 18:40
DX: D57.00 Hb-SS disease with crisis, unspecified (principal); M79.603 Pain in arm, unspecified; I82.409 Acute embolism and thrombosis of unspecified deep veins of unspecified lower extremity
CPT/HCPCS: 36415; 85025; 85045; 96361; 96374; 96375; 96376; 99284; J1170; J1200; J1885

== ENCOUNTER 2016-08-28 09:02 | Emergency (ER) | payer MEDICARE ==
[2016-08-28 09:19] VITALS: BP 127/82
[2016-08-28] MEDS ORDERED: D5NS 0.2% 1,000 ML IV SCH (10:00)
[2016-08-28] MEDS ORDERED: NACL 0.9% 1000 ML 1,000 ML IV ONE (14:42)
[2016-08-28] MEDS ORDERED: DILAUDID IV ONE ×2 (14:42→17:19)
--- NOTE | 2016-08-28 14:44 | Emergency Department Report ---
HPI - General Chief Complaint: Sickle Cell Crisis Time Seen by Provider: 08/28/16 14:09 - HPI HPI: This is a 30-year-old Afro-[place] female who presents to the emergency room, after being dropped off by friend, with complaint of low back pain and left arm pain for the past 2 days which she feels is a exacerbation of her sickle cell pain. She denies any chest pain, shortness of breath, fever, nausea, vomiting. She denies any problems with bowel or bladder, numbness or paresthesias or any neurological deficits. 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 She says that she takes folic acid, hydroxyurea and Percocet for her symptoms without any relief. No recent travel or sick contacts at home. She denies any tobacco abuse or any illicit drug use. ED Past Medical Hx - Past Medical History Hx Congestive Heart Failure: No Hx Diabetes: No Hx Deep Vein Thrombosis: Yes (lt arm) Hx Sickle Cell Disease: Yes Hx Asthma: No Hx COPD: No Hx HIV: No Additional medical history: DVT left arm 07/2015 - Surgical History Hx Cholecystectomy: Yes Additional Surgical History: X 2. TONSILLECTOMY. SPLEENECTOMY - Social History Smoking Status: Never Smoker Substance Use Type: None - Medications Home Medications: Home Medications Medication Instructions Recorded Confirmed Last Taken Type Ondansetron [Zofran ODT TAB] 4 mg PO Q8HR PRN #20 tab.rapdis 03/27/16 06/03/16 06/02/16 Rx Famotidine [Pepcid] 20 mg PO QDAY #14 tablet 04/14/16 06/03/16 06/02/16 Rx Folic Acid [Folvite] 1 mg PO QDAY #30 tablet 04/14/16 06/03/16 06/02/16 Rx Morphine [Morphine TAB] 15 mg PO Q4H PRN #15 tablet 04/14/16 06/03/16 06/02/16 Rx Multivitamin Tab [Multiple Vitamin 1 each PO QDAY #30 tablet 04/14/16 06/03/16 06/02/16 Rx TAB (Theragran)] oxyCODONE /ACETAMINOPHEN [Percocet 1 tab PO Q6HR PRN #12 tablet 06/06/16 Unknown Rx 5/325 mg] ED Review of Systems ROS: Stated complaint: LT ARM AND LOWER BACK PAIN SICKLE CELL Other details as noted in HPI Comment: All other systems reviewed and negative Constitutional: denies: chills, fever Eyes: denies: eye pain, eye discharge, vision change ENT: denies: ear pain, throat pain Respiratory: denies: cough, shortness of breath, wheezing Cardiovascular: denies: chest pain, palpitations Gastrointestinal: denies: abdominal pain, nausea, diarrhea Genitourinary: denies: urgency, dysuria, discharge Musculoskeletal: back pain, arthralgia Skin: denies: rash, lesions Neurological: denies: headache, weakness, paresthesias Physical Exam - Physical Exam Vital Signs: Vital Signs 08/28/16 09:16 Temperature 98.7 F Pulse Rate 90 Blood Pressure 127/82 O2 Sat by Pulse 98 Oximetry Physical Exam: GENERAL: The patient is well-developed well-nourished. HEENT: Normocephalic. Atraumatic. Extraocular motions are intact. Patient has moist mucous membranes. Pupils equal reactive to light. NECK: Supple. Trachea is midline. CHEST/LUNGS: Clear to auscultation. There is no respiratory distress noted. HEART/CARDIOVASCULAR: Regular. There is no tachycardia. There is no gallop rub or murmur. ABDOMEN: Abdomen is soft, nontender. Patient has normal bowel sounds. There is no abdominal distention. SKIN: Skin is warm and dry. NEURO: The patient is awake, alert, and oriented. The patient is cooperative. The patient has no focal neurologic deficits. The patient has normal speech. MUSCULOSKELETAL: There is no tenderness or deformity. There is no limitation range of motion. There is no evidence of acute injury. Muscle strength 5 out of 5 upper and lower extremity bilaterally. Cap refill less than 0 seconds. BACK: No midline thoracic or lumbar tenderness to palpation which step-off or deformity. There is some reproducible tenderness to palpation to the bilateral paraspinal region of the lumbar back. ED Course Vital Signs 08/28/16 09:16 Temperature 98.7 F Pulse Rate 90 Blood Pressure 127/82 O2 Sat by Pulse 98 Oximetry ED Medical Decision Making - Lab Data Result diagrams: 08/28/16 15:00 - Medical Decision Making 30-year-old female presents emergency Department with complaint of low back pain and left arm pain that is consistent with her sickle cell pain crisis. She denies any chest pain, shortness of breath and does not have any fever. This appears low suspicion for acute chest crisis. Patient's labs show a hemoglobin greater than 10 and a reticulocyte count of about 3. She was given some IV fluid, and 2 doses of pain medication and upon reevaluation she is feeling improved. She appears safe for discharge home at this time. She'll be encouraged to follow up with a primary care doctor in [place], where she recently moved, but to return to the emergency department with any worsening of her symptoms or any acute distress. - Differential Diagnosis sickle cell pain crisis, chest crisis, fibromyalgia Critical Care Time: No Critical care attestation.: If time is entered above; I have spent that time in minutes in the direct care of this critically ill patient, excluding procedure time. ED Disposition Clinical Impression: Sickle cell crisis, Sickle-cell disease with pain Arm pain Qualifiers: Laterality: left Qualified Code(s): M79.602 - Pain in left arm Back pain Qualifiers: Back pain location: low back pain Chronicity: unspecified Back pain laterality : bilateral Sciatica presence: without sciatica Qualified Code(s): M54.5 - Low back pain Disposition: DC- TO HOME OR SELFCARE Is pt being admited?: No Condition: Stable Referrals: PRIMARY CARE, [Primary Care Provider] - 3-5 Days Time of Disposition: 17:54
[2016-08-28 15:31] LABS: Hematocrit 30.6 % (30.3-42.9); Hemoglobin 10.8 gm/dl (10.1-14.3); Mean Corpuscular HGB Conc 35 % (30-34); Mean Corpuscular Volume 72 fl (79-97); Platelet Count 404 K/mm3 (140-440); Red Blood Count 4.28 M/mm3 (3.65-5.03); Reticulocyte % 3.67 % (0.78-2.58); White Blood Count 10.3 K/mm3 (4.5-11.0)
[2016-08-28 15:42] LABS: Mean Corpuscular Hemoglobin 25 pg (28-32); Red Cell Distribution Width 26.6 % (13.2-15.2)
[2016-08-28] MEDS ORDERED: BENADRYL ONE (15:54)
[2016-08-28] MEDS ORDERED: BENADRYL IV ONE (15:54)
[2016-08-28 17:27] LABS: Blastocytes % (Manual) 0 %
[2016-08-28 17:28] LABS: Anisocytosis 1+; Microcytosis 1+; Target Cells 2+
[2016-08-28 17:29] LABS: Hypochromasia 2+; Large Platelets Few; Platelet Estimate Consistent w Auto; Poikilocytosis 1+
[2016-08-28 17:32] LABS: Diff Status Complete; Polychromasia Few
== END 2016-08-28 18:00 | disposition home or self-care (01) ==
LOC: ED 09:02
DX: D57.00 Hb-SS disease with crisis, unspecified (principal); M79.602 Pain in left arm
CPT/HCPCS: 36415; 85007; 85025; 85045; 96361; 96374; 96375; 96376; 99283; J1170; J1200; J7030

== ENCOUNTER 2016-09-28 13:12 | Inpatient (IN) | payer MEDICARE ==
--- NOTE | 2016-09-28 13:43 | Emergency Department Report ---
Chief Complaint: Sickle Cell Crisis Stated Complaint: ARM AND LOW BACK PAIN Time Seen by Provider: 09/28/16 13:41 - HPI History of Present Illness: PT c/o ssc pain - ROS Review of Systems: + arm pain - Exam Vital Signs: Vital Signs 09/28/16 13:36 Temperature 98.7 F Pulse Rate 94 H Respiratory 16 Rate Blood Pressure 123/74 O2 Sat by Pulse 99 Oximetry Physical Exam: pt is alert gcs 15 moves all ext well steady gait MSE screening note: Focused history and physical exam performed. Due to findings the following was ordered: labs ED Disposition for MSE Condition: Stable
[2016-09-28 14:50] LABS: Hematocrit 32.4 % (30.3-42.9); Mean Corpuscular HGB Conc 34 % (30-34); Mean Corpuscular Hemoglobin 27 pg (28-32); Mean Corpuscular Volume 78 fl (79-97); Platelet Count 474 K/mm3 (140-440); Red Blood Count 4.13 M/mm3 (3.65-5.03); Reticulocyte % 1.78 % (0.78-2.58)
[2016-09-28 15:04] LABS: Red Cell Distribution Width 22.6 % (13.2-15.2)
[2016-09-28 16:26] LABS: Basophils % (Manual) 0 % (0.0-1.8); Blastocytes % (Manual) 0 %
[2016-09-28 16:28] LABS: Anisocytosis 1+; Microcytosis Few; Platelet Estimate Consistent w Auto; Poikilocytosis 1+; Target Cells 1+
[2016-09-28 16:29] LABS: Diff Status Complete
[2016-09-29] MEDS ORDERED: DILAUDID IV ONE ×2 (00:13→03:42)
[2016-09-29] MEDS ORDERED: BENADRYL ONE ×2 (02:12→06:00)
--- NOTE | 2016-09-29 02:21 | Emergency Department Report ---
ED General Adult HPI - General Chief complaint: Sickle Cell Crisis Stated complaint: ARM AND LOW BACK PAIN Time Seen by Provider: 09/28/16 13:41 Source: patient Mode of arrival: Ambulatory Limitations: No Limitations - History of Present Illness Initial comments: Patient is a 31-year-old female past medical history of sickle cell disorder. Presents with pain crisis. She states that the pain is in her back and in her arm. This is typical for her sickle cell pain. The pain is sharp and is a 10 out of 10 nothing makes it better or worse. Patient states the pains are gone for 6 hours. She says she's tried oral analgesic medications but it hasn't worked. Patient denies having any nausea or vomiting. - Related Data Previous Rx's Medication Instructions Recorded Last Taken Type Ondansetron [Zofran ODT TAB] 4 mg PO Q8HR PRN #20 tab.rapdis 03/27/16 06/02/16 Rx Famotidine [Pepcid] 20 mg PO QDAY #14 tablet 04/14/16 06/02/16 Rx Folic Acid [Folvite] 1 mg PO QDAY #30 tablet 04/14/16 06/02/16 Rx Morphine [Morphine TAB] 15 mg PO Q4H PRN #15 tablet 04/14/16 06/02/16 Rx Multivitamin Tab [Multiple Vitamin 1 each PO QDAY #30 tablet 04/14/16 06/02/16 Rx TAB (Theragran)] oxyCODONE /ACETAMINOPHEN [Percocet 1 tab PO Q6HR PRN #10 tablet 08/28/16 Unknown Rx 5/325 mg] Allergies Allergy/AdvReac Type Severity Reaction Status Date / Time No Known Allergies Allergy Verified 08/28/16 09:16 ED Review of Systems ROS: Stated complaint: ARM AND LOW BACK PAIN Other details as noted in HPI Constitutional: denies: chills, fever Eyes: denies: eye pain, eye discharge, vision change ENT: as per HPI Respiratory: denies: cough, shortness of breath, wheezing Cardiovascular: denies: chest pain, palpitations Endocrine: no symptoms reported Gastrointestinal: denies: abdominal pain, nausea, diarrhea Genitourinary: denies: urgency, dysuria, discharge Musculoskeletal: arthralgia, myalgia Skin: denies: rash, lesions Neurological: denies: headache, weakness, paresthesias Psychiatric: denies: anxiety, depression Hematological/Lymphatic: denies: easy bleeding, easy bruising ED Past Medical Hx - Past Medical History Previous Medical History?: Yes Hx Congestive Heart Failure: No Hx Diabetes: No Hx Deep Vein Thrombosis: Yes (lt arm) Hx Sickle Cell Disease: Yes Hx Asthma: No Hx COPD: No Hx HIV: No Additional medical history: DVT left arm 07/2015 - Surgical History Past Surgical History?: Yes Hx Cholecystectomy: Yes Additional Surgical History: X 2. TONSILLECTOMY. SPLEENECTOMY - Social History Smoking Status: Current Every Day Smoker Substance Use Type: Alcohol, Prescribed - Medications Home Medications: Home Medications Medication Instructions Recorded Confirmed Last Taken Type Ondansetron [Zofran ODT TAB] 4 mg PO Q8HR PRN #20 tab.rapdis 03/27/16 06/03/16 06/02/16 Rx Famotidine [Pepcid] 20 mg PO QDAY #14 tablet 04/14/16 06/03/16 06/02/16 Rx Folic Acid [Folvite] 1 mg PO QDAY #30 tablet 04/14/16 06/03/16 06/02/16 Rx Morphine [Morphine TAB] 15 mg PO Q4H PRN #15 tablet 04/14/16 06/03/16 06/02/16 Rx Multivitamin Tab [Multiple Vitamin 1 each PO QDAY #30 tablet 04/14/16 06/03/16 06/02/16 Rx TAB (Theragran)] oxyCODONE /ACETAMINOPHEN [Percocet 1 tab PO Q6HR PRN #10 tablet 08/28/16 Unknown Rx 5/325 mg] ED Physical Exam - General Limitations: No Limitations General appearance: alert, in no apparent distress - Head Head exam: Present: atraumatic, normocephalic - Eye Eye exam: Present: normal appearance, PERRL, EOMI - ENT ENT exam: Present: mucous membranes moist - Neck Neck exam: Present: normal inspection - Respiratory Respiratory exam: Present: normal lung sounds bilaterally. Absent: respiratory distress - Cardiovascular Cardiovascular Exam: Present: regular rate, normal rhythm. Absent: systolic murmur, diastolic murmur, rubs, gallop - GI/Abdominal GI/Abdominal exam: Present: soft, normal bowel sounds - Extremities Exam Extremities exam: Present: normal inspection - Back Exam Back exam: Present: normal inspection - Neurological Exam Neurological exam: Present: alert, oriented X3, CN II-XII intact - Psychiatric Psychiatric exam: Present: normal affect, normal mood - Skin Skin exam: Present: warm, dry, intact, normal color. Absent: rash ED Course Vital Signs 09/28/16 09/29/16 09/29/16 13:36 02:52 03:00 Temperature 98.7 F Pulse Rate 94 H Respiratory 16 Rate Blood Pressure 123/74 115/64 113/61 O2 Sat by Pulse 99 98 100 Oximetry 09/29/16 09/29/16 09/29/16 03:10 03:20 03:30 Temperature Pulse Rate Respiratory Rate Blood Pressure 113/61 114/59 107/53 O2 Sat by Pulse 98 96 97 Oximetry 09/29/16 09/29/16 09/29/16 03:40 03:50 04:00 Temperature Pulse Rate Respiratory Rate Blood Pressure 107/53 116/72 108/55 O2 Sat by Pulse 100 100 98 Oximetry 09/29/16 09/29/16 09/29/16 04:10 04:20 04:30 Temperature Pulse Rate Respiratory Rate Blood Pressure 108/55 108/55 108/55 O2 Sat by Pulse 100 100 100 Oximetry 09/29/16 09/29/16 04:40 04:50 Temperature Pulse Rate Respiratory Rate Blood Pressure 108/55 108/55 O2 Sat by Pulse 100 100 Oximetry - Procedure Description Procedures done: Place ultrasound-guided IV reason for access and inability get access patient received an 18 khang IV site was cleaned with alcohol. Placement is successful. ED Medical Decision Making - Lab Data Result diagrams: 09/28/16 14:24 Lab Results 09/28/16 Range/Units 14:24 WBC 11.0 (4.5-11.0) K/mm3 RBC 4.13 (3.65-5.03) M/mm3 Hgb 11.0 (10.1-14.3) gm/dl Hct 32.4 (30.3-42.9) % MCV 78 L (79-97) fl MCH 27 L (28-32) pg MCHC 34 (30-34) % RDW 22.6 H (13.2-15.2) % Plt Count 474 H (140-440) K/mm3 Add Manual Diff Complete Total Counted 100 Seg Neuts % (Manual) 52 (40.0-70.0) % Band Neutrophils % 0 % Lymphocytes % (Manual) 36.0 H (13.4-35.0) % Reactive Lymphs % (Man) 0 % Monocytes % (Manual) 11.0 H (0.0-7.3) % Eosinophils % (Manual) 1.0 (0.0-4.3) % Basophils % (Manual) 0 (0.0-1.8) % Metamyelocytes % 0 % Myelocytes % 0 % Promyelocytes % 0 % Blast Cells % 0 % Nucleated RBC % Not Reportable Seg Neutrophils # Man 5.7 (1.8-7.7) K/mm3 Band Neutrophils # 0.0 K/mm3 Lymphocytes # (Manual) 4.0 (1.2-5.4) K/mm3 Abs React Lymphs (Man) 0.0 K/mm3 Monocytes # (Manual) 1.2 H (0.0-0.8) K/mm3 Eosinophils # (Manual) 0.1 (0.0-0.4) K/mm3 Basophils # (Manual) 0.0 (0.0-0.1) K/mm3 Metamyelocytes # 0.0 K/mm3 Myelocytes # 0.0 K/mm3 Promyelocytes # 0.0 K/mm3 Blast Cells # 0.0 K/mm3 WBC Morphology Not Reportable Hypersegmented Neuts Not Reportable Hyposegmented Neuts Not Reportable Hypogranular Neuts Not Reportable Smudge Cells Not Reportable Toxic Granulation Not Reportable Toxic Vacuolation Not Reportable Dohle Bodies Not Reportable Pelger-Huet Anomaly Not Reportable Manjula Rods Not Reportable Platelet Estimate Consistent w auto Clumped Platelets Not Reportable Plt Clumps, EDTA Not Reportable Large Platelets Not Reportable Giant Platelets Not Reportable Platelet Satelliting Not Reportable Plt Morphology Comment Not Reportable RBC Morphology Not Reportable Dimorphic RBCs Not Reportable Polychromasia Not Reportable Hypochromasia Not Reportable Poikilocytosis 1+ Anisocytosis 1+ Microcytosis Few Macrocytosis Not Reportable Spherocytes Not Reportable Pappenheimer Bodies Not Reportable Sickle Cells Not Reportable Target Cells 1+ Tear Drop Cells Not Reportable Ovalocytes Not Reportable Helmet Cells Not Reportable Starr-Denning Bodies Not Reportable [place] Rings Not Reportable Luke Cells Not Reportable Bite Cells Not Reportable Crenated Cell Not Reportable Elliptocytes Not Reportable Acanthocytes (Spur) Not Reportable Rouleaux Not Reportable Hemoglobin C Crystals Not Reportable Schistocytes Not Reportable Malaria parasites Not Reportable Percent Retic 1.78 (0.78-2.58) % Jack Bodies Not Reportable Hem Pathologist Commnt No Critical care attestation.: If time is entered above; I have spent that time in minutes in the direct care of this critically ill patient, excluding procedure time. ED Disposition Clinical Impression: Sickle cell pain crisis Sickle cell anemia Qualifiers: Sickle-cell associated disorders: with unspecified crisis Qualified Code(s): D57.00 - Hb-SS disease with crisis, unspecified; D57.0 - Hb-SS disease with crisis Disposition: OP ADMIT IP TO THIS HOSP Is pt being admited?: Yes Does the pt Need Aspirin: No Condition: Stable Referrals: PRIMARY CARE, [Primary Care Provider] - 3-5 Days Time of Disposition: 05:56
[2016-09-29] MEDS ORDERED: BENADRYL IV ONE ×2 (02:35→06:00)
[2016-09-29] MEDS: D5NS 0.2% 1,000 ML IV SCH ×3 (02:38→20:26)
[2016-09-29] MEDS: DILAUDID IV PRN ×6 (06:00→20:37)
--- NOTE | 2016-09-29 06:55 | History and Physical Report ---
History of Present Illness Date of examination: 09/29/16 History of present illness: 31-year-old woman with a history of sickle cell comes emergency room with complaining of left arm pain and pain in legs. She describes the pain as a sharp, constant, no radiation, intensity 9/10, not relieved with her medications at home. review of systemsReview Of Systems: Constitutional: no fever, chills, weight loss Ears, eyes, nose, mouth and throat: no nasal congestion, no nasal discharge, no sinus pressure, blurry vision, diplopia Neck: No neck pain or rigidity. Cardiovascular: chest pain, orthopnea, palpitations Respiratory: No shortness of breath, cough Gastrointestinal: abdominal pain, hematochezia Genitourinary : no dysuria, frequency , hematuria Musculoskeletal: no joint swelling Integumentary: no rash, no pruritis Neurological: no parathesias, focal weakness Endocrine: no cold or heat intolerance, no polyuria or polydipsia Hematologic/Lymphatic: no easy bruising, no easy bleeding, no gland swelling Allergic/Immunologic: no urticaria, no angioedema., Past medical history: sickle cell PAST SURGICAL HISTORY: Cholecystectomy, tonsillectomy, splenectomy, 2 SOCIAL HISTORY: Denies alcohol, tobacco, drugs FAMILY HISTORY: Sickle cell Medications and Allergies Allergies Allergy/AdvReac Type Severity Reaction Status Date / Time No Known Allergies Allergy Verified 08/28/16 09:16 Home Medications Medication Instructions Recorded Confirmed Last Taken Type Ondansetron [Zofran ODT TAB] 4 mg PO Q8HR PRN #20 tab.rapdis 03/27/16 06/03/16 06/02/16 Rx Famotidine [Pepcid] 20 mg PO QDAY #14 tablet 04/14/16 06/03/16 06/02/16 Rx Folic Acid [Folvite] 1 mg PO QDAY #30 tablet 04/14/16 06/03/16 06/02/16 Rx Morphine [Morphine TAB] 15 mg PO Q4H PRN #15 tablet 04/14/16 06/03/16 06/02/16 Rx Multivitamin Tab [Multiple Vitamin 1 each PO QDAY #30 tablet 04/14/16 06/03/16 06/02/16 Rx TAB (Theragran)] oxyCODONE /ACETAMINOPHEN [Percocet 1 tab PO Q6HR PRN #10 tablet 08/28/16 Unknown Rx 5/325 mg] Active Meds: Active Medications Hydromorphone HCl (Dilaudid) 1.25 mg IV Q2H PRN PRN Reason: Pain , Severe (7-10) Last Admin: 09/29/16 06:00 Dose: 1.25 mg Dextrose/Sodium Chloride (D5ns 0.2%) 1,000 mls @ 250 mls/hr IV DIRECT MARTÍNEZ Last Admin: 09/29/16 02:38 Dose: 250 mls/hr Exam - Physical Exam Narrative exam: Gen. appearance: Patient lying in bed, no apparent distress HEENT: Normocephalic, atraumatic, pupils equally round and reactive to light, extraocular movement intact, and no sclericterus,. No JVD or thyromegaly or nodule,neck supple, no carotid bruit ,mucous membranes moist, no exudate or erythema Heart: S1, S2, regular rate and rhythm Lungs: Clear to auscultation bilaterally, breathing comfortable Abdomen: Positive bowel sounds, nontender, nondistended, no organomegaly Extremity: No edema, cyanosis, clubbing Skin: No rash, nodules, warm, dry Neuro: Oriented 3, cranial nerves II-12 intact, speech is fluent, motor and sensory intact - Constitutional Vitals: Temp Pulse Resp BP Pulse Ox 98.7 F 94 H 16 108/55 100 09/28/16 13:36 09/28/16 13:36 09/28/16 13:36 09/29/16 04:50 09/29/16 04:50 Results - Labs CBC & Chem 7: 09/30/16 04:54 09/30/16 04:54 Labs: Abnormal lab results 09/28/16 Range/Units 14:24 MCV 78 L (79-97) fl MCH 27 L (28-32) pg RDW 22.6 H (13.2-15.2) % Plt Count 474 H (140-440) K/mm3 Lymphocytes % (Manual) 36.0 H (13.4-35.0) % Monocytes % (Manual) 11.0 H (0.0-7.3) % Monocytes # (Manual) 1.2 H (0.0-0.8) K/mm3 Assessment and Plan Assessment Sickle cell crisis Plan Admit to medicine Start IV fluid, IV pain medication, monitor hemoglobin Start DVT prophylaxis
[2016-09-29] MEDS ORDERED: MILK OF MAGNESIA PO PRN (06:57)
[2016-09-29] MEDS ORDERED: MORPHINE IV PRN (06:57)
[2016-09-29] MEDS ORDERED: MORPHINE PO PRN (06:57)
[2016-09-29] MEDS ORDERED: BENADRYL PO PRN (06:57)
[2016-09-29] MEDS ORDERED: DULCOLAX PR PRN (06:57)
[2016-09-29] MEDS ORDERED: D5/0.45NS 1,000 ML IV SCH (07:00)
[2016-09-29 07:56] LABS: Anion Gap 18 mmol/L; Blood Urea Nitrogen 7 mg/dL (7-17); Calcium 8.4 mg/dL (8.4-10.2); Carbon Dioxide 21 mmol/L (22-30); Glucose 77 mg/dL (65-100); Potassium 3.9 mmol/L (3.6-5.0); Sodium 136 mmol/L (137-145)
--- NOTE | 2016-09-29 08:03 | Admit Criteria Form ---
Admission Criteria Documentation: SICKLE CELL DISEASE Clinical Indications for Admission to Inpatient Care (Place 'X' for any and all applicable criteria): Admission is indicated for 1 or more of the following(1)(2)(3)(4): [X ]I. Inpatient admission required rather than observation care (see also observation care guidelines) because of 1 or more of the following(19): [ ]a) Altered mental status [ ]b) High fever or infection requiring inpatient admission as indicated by 1 or more of the following: [ ]A. Appropriate outpatient observation care antimicrobial treatment unavailable, not effective, or not appropriate for infection [ ]B. Documented bacteremia [ ]C. Temp >104.9F (40.5C) (oral) [ ]D. Temp >103.1F (oral) or <96.8F(rectal) that does not respond to all emergency treatment measures [ ]c) Supplemental O2 or respiratory treatments for > 24 hrs that is performable only in acute inpatient setting [ ]d) Continuous parenteral narcotics or other major pain intervention for over 24 hours performable only in acute inpatient setting [ ]e) Exchange transfusion [X ]f) Other condition, treatment or monitoring requiring inpatient admission [ ]II. Acute chest syndrome indicated by ALL of the following (10): [ ]a) New alveolar infiltrate involving at least one lung segment [ ]b) Associated pulmonary symptoms or findings as indicated by1 or more of the following: [ ]i) Chest pain [ ]ii) Hypoxia [ ]iii) Tachypnea/dyspnea [ ]iv) Abnormal breath sounds (wheezing, crackles) [ ]v) Cough [ ]vi) Sputum production [ ]III. Hypoxemia or acidosis (more severe than baseline) [ ]IV. Emergent surgery needed (eg, acute cholecystitis) [ ]V. -related complication(11) [ ]. Splenic or hepatic sequestration(12) [ ]VII. Aplastic crisis [ ]VIII. Priapism or other vascular complication(13) [ ]IX. Traumatic hyphema [A](14) [ ]X. Acute renal failure [ ]XI. Signs or symptoms of central nervous system injury indicated by 1 or more of the following: [ ]a) Stroke(9) [ ]b) Seizure [ ]c) Other significant central nervous system symptom or event Extended stay beyond goal length of stay may be needed for: [ ]a) Inadequate pain control [ ]b) Acute chest syndrome [ ]c) Sequestration or aplastic crisis (12) [ ]d) Pneumonia and asthma exacerbation [ ]e) Neurologic or vascular complications (25) [ ]f) Infection (eg, osteomyelitis) that requires ongoing treatment) The original [facility] [employer] content created by [employer] has been revised. The portions of the content which have been revised are identified through the use of italic text or in bold, and [facility] [employer] [facility] has neither reviewed nor approved the modified material. All other unmodified content is copyright [employer]. Please see references footnoted in the original [facility] [employer] edition 2017 Admission Criteria Met: Yes
[2016-09-29] MEDS ORDERED: LOVENOX SUB-Q SCH (10:00)
[2016-09-29] MEDS: BENADRYL IV PRN ×2 (12:07→18:17)
[2016-09-29] MEDS: THERAGRAN Tab PO SCH (12:31)
[2016-09-29] MEDS: FOLVITE PO SCH (12:31)
--- NOTE | 2016-09-29 13:02 | Progress Note ---
Assessment and Plan Assessment and plan: Patient is a 32-year-old woman with history of sickle cell disease, UTI, cholelithiasis status post cholecystectomy who presents with leg and arm pains. 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 -Chronic pain syndrome: Carefully monitor narcotics -DVT prophylaxis: Subcutaneous Lovenox History Interval history: Patient seen and examined. Follow up on current diagnosis/arm and leg pains which is still present, severe constant, diffuse radiation, acute onset. Overnight uneventful. No cp, sob, n/v, cough or severe headaches. Imaging, old records, testing, labs, nursing notes reviewed. Hospitalist Physical - Physical exam Narrative exam: GEN: WDWN, NAD, AWAKE, ALERT, ORIENTATED x 3 HEENT: NCAT, PERRL, EOMI, OP CLEAR NECK: SUPPLE, NO THYROMEGALY, NO JVD, NO LAD CVS: RRR, NORMAL S1S2 LUNGS/CHEST: CTA B, NORMAL CHEST EXPANSION B, GOOD AIR ENTRY B ABD: SOFT, NTND, GBS, NO REBOUND OR GUARDING EXT/SKIN: NO SIGNIFICANT EDEMA OR RASH MSK: FROM X 4 EXTREMITIES NEURO: CN 2-12 GROSSLY INTACT, NO FOCAL DEFICITS PSY: CALM - Constitutional Vitals: Temp Pulse Resp BP Pulse Ox 99.0 F 87 18 124/68 98 09/29/16 09:00 09/29/16 09:00 09/29/16 09:00 09/29/16 09:00 09/29/16 09:00 Results - Labs CBC & Chem 7: 09/28/16 14:24 09/29/16 07:11 Labs: Laboratory Last Values WBC 11.0 K/mm3 (4.5-11.0) 09/28/16 14:24 RBC 4.13 M/mm3 (3.65-5.03) 09/28/16 14:24 Hgb 11.0 gm/dl (10.1-14.3) 09/28/16 14:24 Hct 32.4 % (30.3-42.9) 09/28/16 14:24 MCV 78 fl (79-97) L 09/28/16 14:24 MCH 27 pg (28-32) L 09/28/16 14:24 MCHC 34 % (30-34) 09/28/16 14:24 RDW 22.6 % (13.2-15.2) H 09/28/16 14:24 Plt Count 474 K/mm3 (140-440) H 09/28/16 14:24 Add Manual Diff Complete 09/28/16 14:24 Total Counted 100 09/28/16 14:24 Seg Neuts % (Manual) 52 % (40.0-70.0) 09/28/16 14:24 Band Neutrophils % 0 % 09/28/16 14:24 Lymphocytes % (Manual) 36.0 % (13.4-35.0) H 09/28/16 14:24 Reactive Lymphs % (Man) 0 % 09/28/16 14:24 Monocytes % (Manual) 11.0 % (0.0-7.3) H 09/28/16 14:24 Eosinophils % (Manual) 1.0 % (0.0-4.3) 09/28/16 14:24 Basophils % (Manual) 0 % (0.0-1.8) 09/28/16 14:24 Metamyelocytes % 0 % 09/28/16 14:24 Myelocytes % 0 % 09/28/16 14:24 Promyelocytes % 0 % 09/28/16 14:24 Blast Cells % 0 % 09/28/16 14:24 Nucleated RBC % Not Reportable 09/28/16 14:24 Seg Neutrophils # Man 5.7 K/mm3 (1.8-7.7) 09/28/16 14:24 Band Neutrophils # 0.0 K/mm3 09/28/16 14:24 Lymphocytes # (Manual) 4.0 K/mm3 (1.2-5.4) 09/28/16 14:24 Abs React Lymphs (Man) 0.0 K/mm3 09/28/16 14:24 Monocytes # (Manual) 1.2 K/mm3 (0.0-0.8) H 09/28/16 14:24 Eosinophils # (Manual) 0.1 K/mm3 (0.0-0.4) 09/28/16 14:24 Basophils # (Manual) 0.0 K/mm3 (0.0-0.1) 09/28/16 14:24 Metamyelocytes # 0.0 K/mm3 09/28/16 14:24 Myelocytes # 0.0 K/mm3 09/28/16 14:24 Promyelocytes # 0.0 K/mm3 09/28/16 14:24 Blast Cells # 0.0 K/mm3 09/28/16 14:24 WBC Morphology Not Reportable 09/28/16 14:24 Hypersegmented Neuts Not Reportable 09/28/16 14:24 Hyposegmented Neuts Not Reportable 09/28/16 14:24 Hypogranular Neuts Not Reportable 09/28/16 14:24 Smudge Cells Not Reportable 09/28/16 14:24 Toxic Granulation Not Reportable 09/28/16 14:24 Toxic Vacuolation Not Reportable 09/28/16 14:24 Dohle Bodies Not Reportable 09/28/16 14:24 Pelger-Huet Anomaly Not Reportable 09/28/16 14:24 Manjula Rods Not Reportable 09/28/16 14:24 Platelet Estimate Consistent w auto 09/28/16 14:24 Clumped Platelets Not Reportable 09/28/16 14:24 Plt Clumps, EDTA Not Reportable 09/28/16 14:24 Large Platelets Not Reportable 09/28/16 14:24 Giant Platelets Not Reportable 09/28/16 14:24 Platelet Satelliting Not Reportable 09/28/16 14:24 Plt Morphology Comment Not Reportable 09/28/16 14:24 RBC Morphology Not Reportable 09/28/16 14:24 Dimorphic RBCs Not Reportable 09/28/16 14:24 Polychromasia Not Reportable 09/28/16 14:24 Hypochromasia Not Reportable 09/28/16 14:24 Poikilocytosis 1+ 09/28/16 14:24 Anisocytosis 1+ 09/28/16 14:24 Microcytosis Few 09/28/16 14:24 Macrocytosis Not Reportable 09/28/16 14:24 Spherocytes Not Reportable 09/28/16 14:24 Pappenheimer Bodies Not Reportable 09/28/16 14:24 Sickle Cells Not Reportable 09/28/16 14:24 Target Cells 1+ 09/28/16 14:24 Tear Drop Cells Not Reportable 09/28/16 14:24 Ovalocytes Not Reportable 09/28/16 14:24 Helmet Cells Not Reportable 09/28/16 14:24 Starr-[place] Bodies Not Reportable 09/28/16 14:24 [place] Rings Not Reportable 09/28/16 14:24 [place] Cells Not Reportable 09/28/16 14:24 Bite Cells Not Reportable 09/28/16 14:24 Crenated Cell Not Reportable 09/28/16 14:24 Elliptocytes Not Reportable 09/28/16 14:24 Acanthocytes (Spur) Not Reportable 09/28/16 14:24 Rouleaux Not Reportable 09/28/16 14:24 Hemoglobin C Crystals Not Reportable 09/28/16 14:24 Schistocytes Not Reportable 09/28/16 14:24 Malaria parasites Not Reportable 09/28/16 14:24 Percent Retic 1.78 % (0.78-2.58) 09/28/16 14:24 Jack Bodies Not Reportable 09/28/16 14:24 Hem Pathologist Commnt No 09/28/16 14:24 Sodium 136 mmol/L (137-145) L 09/29/16 07:11 Potassium 3.9 mmol/L (3.6-5.0) 09/29/16 07:11 Chloride 101.0 mmol/L (98-107) 09/29/16 07:11 Carbon Dioxide 21 mmol/L (22-30) L 09/29/16 07:11 Anion Gap 18 mmol/L 09/29/16 07:11 BUN 7 mg/dL (7-17) 09/29/16 07:11 Creatinine 0.4 mg/dL (0.7-1.2) L 09/29/16 07:11 Estimated GFR > 60 ml/min 09/29/16 07:11 BUN/Creatinine Ratio 17.50 % 09/29/16 07:11 Glucose 77 mg/dL (65-100) 09/29/16 07:11 Calcium 8.4 mg/dL (8.4-10.2) 09/29/16 07:11
[2016-09-29] MEDS: PEPCID PO SCH (14:59)
[2016-09-29] MEDS: LOVENOX SUB-Q SCH (14:59)
[2016-09-29] MEDS: OxyCONTIN PO SCH ×2 (15:48→22:31)
[2016-09-29] MEDS: SENOKOT PO SCH (22:30)
--- NOTE | 2016-09-29 22:43 | Consultation ---
History of Present Illness - Reason for Consult Consult date: 09/29/16 SCD/anemia/ Requesting physician: NABEEL BOURGEOIS - History of Present Illness Thank you for this consult, patient seen/examined, record reviewed, case d/w patient. She is grossly non compliant with office visit. Kindly asked to see for the reasons above.She presented with crisis sxs, and admitted for sxs control. she is currently on pain meds /hydration. will do further w/up. Past History Past Medical History: anemia Social history: no significant social history Family history: no significant family history Medications and Allergies Allergies Allergy/AdvReac Type Severity Reaction Status Date / Time No Known Allergies Allergy Verified 08/28/16 09:16 Home Medications Medication Instructions Recorded Confirmed Last Taken Type Ondansetron [Zofran ODT TAB] 4 mg PO Q8HR PRN #20 tab.rapdis 03/27/16 06/03/16 06/02/16 Rx Famotidine [Pepcid] 20 mg PO QDAY #14 tablet 04/14/16 06/03/16 06/02/16 Rx Folic Acid [Folvite] 1 mg PO QDAY #30 tablet 04/14/16 06/03/16 06/02/16 Rx Morphine [Morphine TAB] 15 mg PO Q4H PRN #15 tablet 04/14/16 06/03/16 06/02/16 Rx Multivitamin Tab [Multiple Vitamin 1 each PO QDAY #30 tablet 04/14/16 06/03/16 06/02/16 Rx TAB (Theragran)] oxyCODONE /ACETAMINOPHEN [Percocet 1 tab PO Q6HR PRN #10 tablet 08/28/16 Unknown Rx 5/325 mg] Active Meds: Active Medications Bisacodyl (Dulcolax) 10 mg [place] QDAY PRN PRN Reason: Constipation unrelieved by MOM Diphenhydramine HCl (Benadryl) 25 mg PO Q6H PRN PRN Reason: Itching Diphenhydramine HCl (Benadryl) 25 mg IV Q6H PRN PRN Reason: Itching Last Admin: 09/29/16 18:17 Dose: 25 mg Enoxaparin Sodium (Lovenox) 40 mg SUB-Q QDAY@1000 MARTÍNEZ Last Admin: 09/29/16 14:59 Dose: 40 mg Famotidine (Pepcid) 20 mg PO QDAY [facility] Last Admin: 09/29/16 14:59 Dose: 20 mg Folic Acid (Folvite) 1 mg PO QDAY [facility] Last Admin: 09/29/16 12:31 Dose: 1 mg Hydromorphone HCl (Dilaudid) 1.25 mg IV Q2H PRN PRN Reason: Pain , Severe (7-10) Last Admin: 09/29/16 20:37 Dose: 1.25 mg Dextrose/Sodium Chloride (D5ns 0.2%) 1,000 mls @ 250 mls/hr IV DIRECT [facility] Last Admin: 09/29/16 20:26 Dose: 250 mls/hr Magnesium Hydroxide (Milk Of Magnesia) 30 ml PO Q4H PRN PRN Reason: Constipation Morphine Sulfate (Morphine) 15 mg PO Q4H PRN PRN Reason: Pain, Moderate (4-6) Morphine Sulfate (Morphine) 4 mg IV Q2H PRN PRN Reason: Pain , Severe (7-10) Stop: 09/30/16 06:56 Multivitamins (Theragran Tab) 1 each PO QDAY [facility] Last Admin: 09/29/16 12:31 Dose: 1 each Ondansetron HCl (Zofran) 4 mg IV Q8H PRN PRN Reason: Nausea And Vomiting Oxycodone HCl (Oxycontin) 20 mg PO Q8HR [facility] Last Admin: 09/29/16 22:31 Dose: 20 mg Senna (Senokot) 17.2 mg PO QHS [facility] Last Admin: 09/29/16 22:30 Dose: 17.2 mg Review of Systems Constitutional: chronic pain Breasts: deferred Musculoskeletal: low back pain Exam - Constitutional Vitals: Temp Pulse Resp BP Pulse Ox 98.9 F 80 20 117/71 97 09/29/16 16:00 09/29/16 16:00 09/29/16 16:00 09/29/16 16:00 09/29/16 16:00 General appearance: Present: mild distress, well-nourished - EENT Eyes: Present: PERRL ENT: hearing intact, clear oral mucosa - Neck Neck: Present: supple, normal ROM - Respiratory Respiratory effort: normal Respiratory: bilateral: CTA - Cardiovascular Heart Sounds: Present: S1 & S2. Absent: rub, click - Extremities Extremities: pulses symmetrical, No edema Peripheral Pulses: within normal limits - Abdominal General gastrointestinal: Present: soft, non-tender, non-distended, normal bowel sounds Female genitourinary: Present: deferred - Rectal Rectal Exam: deferred - Integumentary Integumentary: Present: clear, warm, dry - Musculoskeletal Musculoskeletal: gait normal, strength equal bilaterally - Psychiatric Psychiatric: appropriate mood/affect, intact judgment & insight - Neurologic Neurologic: CNII-XII intact, moves all extremities Results - Labs CBC & Chem 7: 09/28/16 14:24 09/29/16 07:11 Labs: Abnormal lab results 09/29/16 Range/Units 07:11 Sodium 136 L (137-145) mmol/L Carbon Dioxide 21 L (22-30) mmol/L Creatinine 0.4 L (0.7-1.2) mg/dL Assessment and Plan - Patient Problems (1) Sickle cell anemia Current Visit: Yes Status: Acute Qualifiers: Sickle-cell associated disorders: with unspecified crisis Qualified Code(s) : D57.00 - Hb-SS disease with crisis, unspecified; D57.0 - Hb-SS disease with crisis Plan to address problem: monitor labs. (2) Sickle cell pain crisis Current Visit: Yes Status: Acute Plan to address problem: pain control.
[2016-09-30] MEDS: BENADRYL IV PRN ×4 (01:05→19:28)
[2016-09-30] MEDS: DILAUDID IV PRN ×9 (01:05→23:24)
[2016-09-30] MEDS: D5NS 0.2% 1,000 ML IV SCH ×3 (01:17→22:05)
[2016-09-30 05:55] LABS: Anion Gap 18 mmol/L; BUN/Creatinine Ratio 6.66; Blood Urea Nitrogen 4 mg/dL (7-17); Calcium 8.6 mg/dL (8.4-10.2); Carbon Dioxide 22 mmol/L (22-30); Chloride 104.4 mmol/L (98-107); Glucose 92 mg/dL (65-100); Potassium 3.6 mmol/L (3.6-5.0); Sodium 141 mmol/L (137-145)
[2016-09-30 05:59] LABS: Hematocrit 32.3 % (30.3-42.9); Hemoglobin 10.9 gm/dl (10.1-14.3); Mean Corpuscular HGB Conc 34 % (30-34); Mean Corpuscular Hemoglobin 26 pg (28-32); Mean Corpuscular Volume 78 fl (79-97); Platelet Count 458 K/mm3 (140-440); Red Blood Count 4.16 M/mm3 (3.65-5.03); White Blood Count 12.1 K/mm3 (4.5-11.0)
[2016-09-30 06:08] LABS: Red Cell Distribution Width 21.8 % (13.2-15.2)
[2016-09-30] MEDS: OxyCONTIN PO SCH ×3 (06:23→21:13)
[2016-09-30] MEDS: THERAGRAN Tab PO SCH (09:34)
[2016-09-30] MEDS: FOLVITE PO SCH (09:34)
[2016-09-30] MEDS: LOVENOX SUB-Q SCH (09:34)
[2016-09-30] MEDS: PEPCID PO SCH (09:35)
[2016-09-30] MEDS ORDERED: FOLVITE PO SCH (10:00)
--- NOTE | 2016-09-30 13:28 | Progress Note ---
Assessment and Plan Assessment and plan: Patient is a 32-year-old woman with history of sickle cell disease, UTI, cholelithiasis status post cholecystectomy and left arm DVT status post warfarin from September 2015 to March 2016 who presents with leg and arm pains. 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 -Chronic pain syndrome: Carefully monitor narcotics -Mild hyponatremia related to the sickle cell: IV fluids treatment -Leukocytosis mild most likely reactive rate and sickle cell anemia -DVT prophylaxis: Subcutaneous Lovenox Full code New issue: Left arm swelling and pain, we'll get a venous Doppler to rule in DVT History Interval history: Patient seen and examined. Follow up on current diagnosis/arm and leg pains which is still present, severe constant, diffuse radiation, acute onset. Overnight uneventful. No cp, sob, n/v, cough or severe headaches. Imaging, old records, testing, labs, nursing notes reviewed. New Issue today is left arm swelling Hospitalist Physical - Physical exam Narrative exam: GEN: WDWN, NAD, AWAKE, ALERT, ORIENTATED x 3 HEENT: NCAT, PERRL, EOMI, OP CLEAR NECK: SUPPLE, NO THYROMEGALY, NO JVD, NO LAD CVS: RRR, NORMAL S1S2 LUNGS/CHEST: CTA B, NORMAL CHEST EXPANSION B, GOOD AIR ENTRY B ABD: SOFT, NTND, GBS, NO REBOUND OR GUARDING EXT/SKIN: left arm is swollen slightly MSK: FROM X 4 EXTREMITIES NEURO: CN 2-12 GROSSLY INTACT, NO FOCAL DEFICITS PSY: CALM - Constitutional Vitals: Temp Pulse Resp BP Pulse Ox 99.0 F 124 H 22 115/65 99 09/30/16 08:00 09/30/16 08:00 09/30/16 08:00 09/30/16 08:00 09/30/16 08:00 General appearance: Present: no acute distress, well-nourished. Absent: mild distress Results - Labs CBC & Chem 7: 09/30/16 04:54 09/30/16 04:54 Labs: Laboratory Last Values WBC 12.1 K/mm3 (4.5-11.0) H 09/30/16 04:54 RBC 4.16 M/mm3 (3.65-5.03) 09/30/16 04:54 Hgb 10.9 gm/dl (10.1-14.3) 09/30/16 04:54 Hct 32.3 % (30.3-42.9) 09/30/16 04:54 MCV 78 fl (79-97) L 09/30/16 04:54 MCH 26 pg (28-32) L 09/30/16 04:54 MCHC 34 % (30-34) 09/30/16 04:54 RDW 21.8 % (13.2-15.2) H 09/30/16 04:54 Plt Count 458 K/mm3 (140-440) H 09/30/16 04:54 Add Manual Diff Complete 09/28/16 14:24 Total Counted 100 09/28/16 14:24 Seg Neuts % (Manual) 52 % (40.0-70.0) 09/28/16 14:24 Band Neutrophils % 0 % 09/28/16 14:24 Lymphocytes % (Manual) 36.0 % (13.4-35.0) H 09/28/16 14:24 Reactive Lymphs % (Man) 0 % 09/28/16 14:24 Monocytes % (Manual) 11.0 % (0.0-7.3) H 09/28/16 14:24 Eosinophils % (Manual) 1.0 % (0.0-4.3) 09/28/16 14:24 Basophils % (Manual) 0 % (0.0-1.8) 09/28/16 14:24 Metamyelocytes % 0 % 09/28/16 14:24 Myelocytes % 0 % 09/28/16 14:24 Promyelocytes % 0 % 09/28/16 14:24 Blast Cells % 0 % 09/28/16 14:24 Nucleated RBC % Not Reportable 09/28/16 14:24 Seg Neutrophils # Man 5.7 K/mm3 (1.8-7.7) 09/28/16 14:24 Band Neutrophils # 0.0 K/mm3 09/28/16 14:24 Lymphocytes # (Manual) 4.0 K/mm3 (1.2-5.4) 09/28/16 14:24 Abs React Lymphs (Man) 0.0 K/mm3 09/28/16 14:24 Monocytes # (Manual) 1.2 K/mm3 (0.0-0.8) H 09/28/16 14:24 Eosinophils # (Manual) 0.1 K/mm3 (0.0-0.4) 09/28/16 14:24 Basophils # (Manual) 0.0 K/mm3 (0.0-0.1) 09/28/16 14:24 Metamyelocytes # 0.0 K/mm3 09/28/16 14:24 Myelocytes # 0.0 K/mm3 09/28/16 14:24 Promyelocytes # 0.0 K/mm3 09/28/16 14:24 Blast Cells # 0.0 K/mm3 09/28/16 14:24 WBC Morphology Not Reportable 09/28/16 14:24 Hypersegmented Neuts Not Reportable 09/28/16 14:24 Hyposegmented Neuts Not Reportable 09/28/16 14:24 Hypogranular Neuts Not Reportable 09/28/16 14:24 Smudge Cells Not Reportable 09/28/16 14:24 Toxic Granulation Not Reportable 09/28/16 14:24 Toxic Vacuolation Not Reportable 09/28/16 14:24 Dohle Bodies Not Reportable 09/28/16 14:24 Pelger-Huet Anomaly Not Reportable 09/28/16 14:24 Manjula Rods Not Reportable 09/28/16 14:24 Platelet Estimate Consistent w auto 09/28/16 14:24 Clumped Platelets Not Reportable 09/28/16 14:24 Plt Clumps, EDTA Not Reportable 09/28/16 14:24 Large Platelets Not Reportable 09/28/16 14:24 Giant Platelets Not Reportable 09/28/16 14:24 Platelet Satelliting Not Reportable 09/28/16 14:24 Plt Morphology Comment Not Reportable 09/28/16 14:24 RBC Morphology Not Reportable 09/28/16 14:24 Dimorphic RBCs Not Reportable 09/28/16 14:24 Polychromasia Not Reportable 09/28/16 14:24 Hypochromasia Not Reportable 09/28/16 14:24 Poikilocytosis 1+ 09/28/16 14:24 Anisocytosis 1+ 09/28/16 14:24 Microcytosis Few 09/28/16 14:24 Macrocytosis Not Reportable 09/28/16 14:24 Spherocytes Not Reportable 09/28/16 14:24 Pappenheimer Bodies Not Reportable 09/28/16 14:24 Sickle Cells Not Reportable 09/28/16 14:24 Target Cells 1+ 09/28/16 14:24 Tear Drop Cells Not Reportable 09/28/16 14:24 Ovalocytes Not Reportable 09/28/16 14:24 Helmet Cells Not Reportable 09/28/16 14:24 Starr-[place] Bodies Not Reportable 09/28/16 14:24 [place] Rings Not Reportable 09/28/16 14:24 [place] Cells Not Reportable 09/28/16 14:24 Bite Cells Not Reportable 09/28/16 14:24 Crenated Cell Not Reportable 09/28/16 14:24 Elliptocytes Not Reportable 09/28/16 14:24 Acanthocytes (Spur) Not Reportable 09/28/16 14:24 Rouleaux Not Reportable 09/28/16 14:24 Hemoglobin C Crystals Not Reportable 09/28/16 14:24 Schistocytes Not Reportable 09/28/16 14:24 Malaria parasites Not Reportable 09/28/16 14:24 Percent Retic 1.78 % (0.78-2.58) 09/28/16 14:24 Jack Bodies Not Reportable 09/28/16 14:24 Hem Pathologist Commnt No 09/28/16 14:24 Sodium 141 mmol/L (137-145) 09/30/16 04:54 Potassium 3.6 mmol/L (3.6-5.0) 09/30/16 04:54 Chloride 104.4 mmol/L (98-107) 09/30/16 04:54 Carbon Dioxide 22 mmol/L (22-30) 09/30/16 04:54 Anion Gap 18 mmol/L 09/30/16 04:54 BUN 4 mg/dL (7-17) L 09/30/16 04:54 Creatinine 0.6 mg/dL (0.7-1.2) L 09/30/16 04:54 Estimated GFR > 60 ml/min 09/30/16 04:54 BUN/Creatinine Ratio 6.66 % 09/30/16 04:54 Glucose 92 mg/dL (65-100) 09/30/16 04:54 Calcium 8.6 mg/dL (8.4-10.2) 09/30/16 04:54
[2016-09-30] MEDS: SENOKOT PO SCH (21:12)
--- NOTE | 2016-09-30 22:48 | Consultation ---
History of Present Illness - Reason for Consult Consult date: 09/30/16 - History of Present Illness Patient seen, resting in bed, labs/notes reviewed.Doppler us negative for any thrombosis. Past History Past Medical History: anemia Social history: no significant social history Family history: no significant family history Medications and Allergies Allergies Allergy/AdvReac Type Severity Reaction Status Date / Time No Known Allergies Allergy Verified 08/28/16 09:16 Home Medications Medication Instructions Recorded Confirmed Last Taken Type Ondansetron [Zofran ODT TAB] 4 mg PO Q8HR PRN #20 tab.rapdis 03/27/16 06/03/16 06/02/16 Rx Famotidine [Pepcid] 20 mg PO QDAY #14 tablet 04/14/16 06/03/16 06/02/16 Rx Folic Acid [Folvite] 1 mg PO QDAY #30 tablet 04/14/16 06/03/16 06/02/16 Rx Morphine [Morphine TAB] 15 mg PO Q4H PRN #15 tablet 04/14/16 06/03/16 06/02/16 Rx Multivitamin Tab [Multiple Vitamin 1 each PO QDAY #30 tablet 04/14/16 06/03/16 06/02/16 Rx TAB (Theragran)] oxyCODONE /ACETAMINOPHEN [Percocet 1 tab PO Q6HR PRN #10 tablet 08/28/16 Unknown Rx 5/325 mg] Active Meds: Active Medications Bisacodyl (Dulcolax) 10 mg [place] QDAY PRN PRN Reason: Constipation unrelieved by MOM Diphenhydramine HCl (Benadryl) 25 mg PO Q6H PRN PRN Reason: Itching Diphenhydramine HCl (Benadryl) 25 mg IV Q6H PRN PRN Reason: Itching Last Admin: 09/30/16 19:28 Dose: 25 mg Enoxaparin Sodium (Lovenox) 40 mg SUB-Q QDAY@1000 MARTÍNEZ Last Admin: 09/30/16 09:34 Dose: 40 mg Famotidine (Pepcid) 20 mg PO QDAY [facility] Last Admin: 09/30/16 09:35 Dose: 20 mg Folic Acid (Folvite) 1 mg PO QDAY [facility] Last Admin: 09/30/16 09:34 Dose: 1 mg Hydromorphone HCl (Dilaudid) 1.25 mg IV Q2H PRN PRN Reason: Pain , Severe (7-10) Last Admin: 09/30/16 21:14 Dose: 1.25 mg Dextrose/Sodium Chloride (D5ns 0.2%) 1,000 mls @ 250 mls/hr IV DIRECT [facility] Last Admin: 09/30/16 22:05 Dose: 250 mls/hr Magnesium Hydroxide (Milk Of Magnesia) 30 ml PO Q4H PRN PRN Reason: Constipation Morphine Sulfate (Morphine) 15 mg PO Q4H PRN PRN Reason: Pain, Moderate (4-6) Multivitamins (Theragran Tab) 1 each PO QDAY [facility] Last Admin: 09/30/16 09:34 Dose: 1 each Ondansetron HCl (Zofran) 4 mg IV Q8H PRN PRN Reason: Nausea And Vomiting Oxycodone HCl (Oxycontin) 20 mg PO Q8HR [facility] Last Admin: 09/30/16 21:13 Dose: 20 mg Senna (Senokot) 17.2 mg PO QHS [facility] Last Admin: 09/30/16 21:12 Dose: 17.2 mg Review of Systems Constitutional: chronic pain Breasts: deferred Exam - Constitutional Vitals: Temp Pulse Resp BP Pulse Ox 100.2 F H 130 H 20 122/63 97 09/30/16 15:57 09/30/16 15:57 09/30/16 15:57 09/30/16 15:57 09/30/16 15:57 General appearance: Present: mild distress, well-nourished - EENT Eyes: Present: PERRL ENT: hearing intact, clear oral mucosa - Neck Neck: Present: supple, normal ROM - Respiratory Respiratory effort: normal Respiratory: bilateral: CTA - Cardiovascular Heart Sounds: Present: S1 & S2. Absent: rub, click - Extremities Extremities: pulses symmetrical, No edema Peripheral Pulses: within normal limits - Abdominal General gastrointestinal: Present: soft, non-tender, non-distended, normal bowel sounds Female genitourinary: Present: deferred - Rectal Rectal Exam: deferred - Integumentary Integumentary: Present: clear, warm, dry - Musculoskeletal Musculoskeletal: gait normal, strength equal bilaterally - Psychiatric Psychiatric: appropriate mood/affect, intact judgment & insight - Neurologic Neurologic: CNII-XII intact, moves all extremities Results - Labs CBC & Chem 7: 09/30/16 04:54 09/30/16 04:54 Labs: Abnormal lab results 09/30/16 09/30/16 Range/Units 04:54 04:54 WBC 12.1 H (4.5-11.0) K/mm3 MCV 78 L (79-97) fl MCH 26 L (28-32) pg RDW 21.8 H (13.2-15.2) % Plt Count 458 H (140-440) K/mm3 BUN 4 L (7-17) mg/dL Creatinine 0.6 L (0.7-1.2) mg/dL Assessment and Plan - Patient Problems (1) Sickle cell anemia Current Visit: Yes Status: Acute Qualifiers: Sickle-cell associated disorders: with unspecified crisis Qualified Code(s) : D57.00 - Hb-SS disease with crisis, unspecified; D57.0 - Hb-SS disease with crisis Plan to address problem: monitor labs. (2) Sickle cell pain crisis Current Visit: Yes Status: Acute Plan to address problem: pain control.
[2016-10-01] MEDS: DILAUDID IV PRN ×11 (01:21→23:55)
[2016-10-01] MEDS: BENADRYL IV PRN ×4 (01:22→20:50)
[2016-10-01] MEDS: D5NS 0.2% 1,000 ML IV SCH ×2 (02:18→06:34)
[2016-10-01] MEDS: OxyCONTIN PO SCH ×2 (05:22→14:21)
--- NOTE | 2016-10-01 07:03 | Vascular Lab Report ---
LEFT UPPER EXTREMITY VENOUS DUPLEX: REASON FOR EXAM: Pain and swelling of the left upper extremity COMMENTS ON THE LEFT: Chronic recanalized deep venous thrombosis is noted in the left brachial vein. The remaining veins visualized are freely compressible without evidence of internal echogenicity. Spontaneous and phasic flow is present proximally. COMMENTS ON THE RIGHT: The subclavian and internal jugular veins are free of thrombus. IMPRESSION: Chronic deep venous thrombosis in the left brachial vein
[2016-10-01] MEDS: FOLVITE PO SCH (09:15)
[2016-10-01] MEDS: THERAGRAN Tab PO SCH (09:16)
[2016-10-01] MEDS: PEPCID PO SCH (09:16)
[2016-10-01] MEDS: LOVENOX SUB-Q SCH (09:17)
--- NOTE | 2016-10-01 19:21 | Progress Note ---
Assessment and Plan Assessment and plan: 32 year old AAF with history of sickle cell disease, cholelithiasis status post recent cholecystectomy and left arm DVT status post warfarin therapy 09/2015-2016 who presents with leg and arm pains. 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 Chronic pain syndrome - carefully monitor narcotics Mild hyponatremia - resolved Leukocytosis - mild, most likely reactive DVT LUE - status post post six-month anticoagulation with Coumadin; Doppler revealed no acute DVT/SVT; recanalized DVT left brachial vein and atretic left cephalic vein DVT prophylaxis - subcutaneous Lovenox Full code History Interval history: c/o left and bilat leg pain Hospitalist Physical - Constitutional Vitals: Temp Pulse Resp BP Pulse Ox 99.2 F 121 H 20 139/77 99 10/01/16 16:00 10/01/16 16:00 10/01/16 16:00 10/01/16 16:00 09/30/16 23:40 General appearance: Present: no acute distress, obese - EENT Eyes: Present: PERRL, EOM intact. Absent: scleral icterus, conjunctival injection - Neck Neck: Present: supple, normal ROM. Absent: masses or JVD - Respiratory Respiratory effort: normal Respiratory: bilateral: CTA, negative: rhonchi, wheezing - Cardiovascular Rhythm: regular Heart Sounds: Present: S1 & S2. Absent: systolic murmur - Extremities Extremities: no ischemia - Abdominal General gastrointestinal: soft, non-tender, non-distended, normal bowel sounds - Neurologic Neurologic: no focal deficits Results - Labs CBC & Chem 7: 10/03/16 13:18 10/03/16 12:39 Labs: Laboratory Last Values WBC 12.1 K/mm3 (4.5-11.0) H 09/30/16 04:54 RBC 4.16 M/mm3 (3.65-5.03) 09/30/16 04:54 Hgb 10.9 gm/dl (10.1-14.3) 09/30/16 04:54 Hct 32.3 % (30.3-42.9) 09/30/16 04:54 MCV 78 fl (79-97) L 09/30/16 04:54 MCH 26 pg (28-32) L 09/30/16 04:54 MCHC 34 % (30-34) 09/30/16 04:54 RDW 21.8 % (13.2-15.2) H 09/30/16 04:54 Plt Count 458 K/mm3 (140-440) H 09/30/16 04:54 Add Manual Diff Complete 09/28/16 14:24 Total Counted 100 09/28/16 14:24 Seg Neuts % (Manual) 52 % (40.0-70.0) 09/28/16 14:24 Band Neutrophils % 0 % 09/28/16 14:24 Lymphocytes % (Manual) 36.0 % (13.4-35.0) H 09/28/16 14:24 Reactive Lymphs % (Man) 0 % 09/28/16 14:24 Monocytes % (Manual) 11.0 % (0.0-7.3) H 09/28/16 14:24 Eosinophils % (Manual) 1.0 % (0.0-4.3) 09/28/16 14:24 Basophils % (Manual) 0 % (0.0-1.8) 09/28/16 14:24 Metamyelocytes % 0 % 09/28/16 14:24 Myelocytes % 0 % 09/28/16 14:24 Promyelocytes % 0 % 09/28/16 14:24 Blast Cells % 0 % 09/28/16 14:24 Nucleated RBC % Not Reportable 09/28/16 14:24 Seg Neutrophils # Man 5.7 K/mm3 (1.8-7.7) 09/28/16 14:24 Band Neutrophils # 0.0 K/mm3 09/28/16 14:24 Lymphocytes # (Manual) 4.0 K/mm3 (1.2-5.4) 09/28/16 14:24 Abs React Lymphs (Man) 0.0 K/mm3 09/28/16 14:24 Monocytes # (Manual) 1.2 K/mm3 (0.0-0.8) H 09/28/16 14:24 Eosinophils # (Manual) 0.1 K/mm3 (0.0-0.4) 09/28/16 14:24 Basophils # (Manual) 0.0 K/mm3 (0.0-0.1) 09/28/16 14:24 Metamyelocytes # 0.0 K/mm3 09/28/16 14:24 Myelocytes # 0.0 K/mm3 09/28/16 14:24 Promyelocytes # 0.0 K/mm3 09/28/16 14:24 Blast Cells # 0.0 K/mm3 09/28/16 14:24 WBC Morphology Not Reportable 09/28/16 14:24 Hypersegmented Neuts Not Reportable 09/28/16 14:24 Hyposegmented Neuts Not Reportable 09/28/16 14:24 Hypogranular Neuts Not Reportable 09/28/16 14:24 Smudge Cells Not Reportable 09/28/16 14:24 Toxic Granulation Not Reportable 09/28/16 14:24 Toxic Vacuolation Not Reportable 09/28/16 14:24 Dohle Bodies Not Reportable 09/28/16 14:24 Pelger-Huet Anomaly Not Reportable 09/28/16 14:24 Manjula Rods Not Reportable 09/28/16 14:24 Platelet Estimate Consistent w auto 09/28/16 14:24 Clumped Platelets Not Reportable 09/28/16 14:24 Plt Clumps, EDTA Not Reportable 09/28/16 14:24 Large Platelets Not Reportable 09/28/16 14:24 Giant Platelets Not Reportable 09/28/16 14:24 Platelet Satelliting Not Reportable 09/28/16 14:24 Plt Morphology Comment Not Reportable 09/28/16 14:24 RBC Morphology Not Reportable 09/28/16 14:24 Dimorphic RBCs Not Reportable 09/28/16 14:24 Polychromasia Not Reportable 09/28/16 14:24 Hypochromasia Not Reportable 09/28/16 14:24 Poikilocytosis 1+ 09/28/16 14:24 Anisocytosis 1+ 09/28/16 14:24 Microcytosis Few 09/28/16 14:24 Macrocytosis Not Reportable 09/28/16 14:24 Spherocytes Not Reportable 09/28/16 14:24 Pappenheimer Bodies Not Reportable 09/28/16 14:24 Sickle Cells Not Reportable 09/28/16 14:24 Target Cells 1+ 09/28/16 14:24 Tear Drop Cells Not Reportable 09/28/16 14:24 Ovalocytes Not Reportable 09/28/16 14:24 Helmet Cells Not Reportable 09/28/16 14:24 [place] Bodies Not Reportable 09/28/16 14:24 [place] Rings Not Reportable 09/28/16 14:24 [place] Cells Not Reportable 09/28/16 14:24 Bite Cells Not Reportable 09/28/16 14:24 Crenated Cell Not Reportable 09/28/16 14:24 Elliptocytes Not Reportable 09/28/16 14:24 Acanthocytes (Spur) Not Reportable 09/28/16 14:24 Rouleaux Not Reportable 09/28/16 14:24 Hemoglobin C Crystals Not Reportable 09/28/16 14:24 Schistocytes Not Reportable 09/28/16 14:24 Malaria parasites Not Reportable 09/28/16 14:24 Percent Retic 1.78 % (0.78-2.58) 09/28/16 14:24 Jack Bodies Not Reportable 09/28/16 14:24 Hem Pathologist Commnt No 09/28/16 14:24 Sodium 141 mmol/L (137-145) 09/30/16 04:54 Potassium 3.6 mmol/L (3.6-5.0) 09/30/16 04:54 Chloride 104.4 mmol/L (98-107) 09/30/16 04:54 Carbon Dioxide 22 mmol/L (22-30) 09/30/16 04:54 Anion Gap 18 mmol/L 09/30/16 04:54 BUN 4 mg/dL (7-17) L 09/30/16 04:54 Creatinine 0.6 mg/dL (0.7-1.2) L 09/30/16 04:54 Estimated GFR > 60 ml/min 09/30/16 04:54 BUN/Creatinine Ratio 6.66 % 09/30/16 04:54 Glucose 92 mg/dL (65-100) 09/30/16 04:54 Calcium 8.6 mg/dL (8.4-10.2) 09/30/16 04:54
[2016-10-01] MEDS: ZOFRAN IV PRN (20:07)
--- NOTE | 2016-10-01 23:06 | Consultation ---
History of Present Illness - Reason for Consult Consult date: 10/01/16 - History of Present Illness Patient seen/examined, labs reviewed, case d/w patient. C/o pain 09/23 with current management. Past History Past Medical History: anemia Social history: no significant social history Family history: no significant family history Medications and Allergies Allergies Allergy/AdvReac Type Severity Reaction Status Date / Time No Known Allergies Allergy Verified 08/28/16 09:16 Home Medications Medication Instructions Recorded Confirmed Last Taken Type Ondansetron [Zofran ODT TAB] 4 mg PO Q8HR PRN #20 tab.rapdis 03/27/16 06/03/16 06/02/16 Rx Famotidine [Pepcid] 20 mg PO QDAY #14 tablet 04/14/16 06/03/16 06/02/16 Rx Folic Acid [Folvite] 1 mg PO QDAY #30 tablet 04/14/16 06/03/16 06/02/16 Rx Morphine [Morphine TAB] 15 mg PO Q4H PRN #15 tablet 04/14/16 06/03/16 06/02/16 Rx Multivitamin Tab [Multiple Vitamin 1 each PO QDAY #30 tablet 04/14/16 06/03/16 06/02/16 Rx TAB (Theragran)] oxyCODONE /ACETAMINOPHEN [Percocet 1 tab PO Q6HR PRN #10 tablet 08/28/16 Unknown Rx 5/325 mg] Active Meds: Active Medications Bisacodyl (Dulcolax) 10 mg [place] QDAY PRN PRN Reason: Constipation unrelieved by MOM Diphenhydramine HCl (Benadryl) 25 mg PO Q6H PRN PRN Reason: Itching Diphenhydramine HCl (Benadryl) 25 mg IV Q6H PRN PRN Reason: Itching Last Admin: 10/01/16 20:50 Dose: 25 mg Enoxaparin Sodium (Lovenox) 40 mg SUB-Q QDAY@1000 MART[facility]NEZ Last Admin: 10/01/16 09:17 Dose: 40 mg Famotidine (Pepcid) 20 mg PO QDAY [facility] Last Admin: 10/01/16 09:16 Dose: 20 mg Folic Acid (Folvite) 1 mg PO QDAY [facility] Last Admin: 10/01/16 09:15 Dose: 1 mg Hydromorphone HCl (Dilaudid) 1.25 mg IV Q2H PRN PRN Reason: Pain , Severe (7-10) Last Admin: 10/01/16 20:50 Dose: 1.25 mg Dextrose/Sodium Chloride (D5ns 0.2%) 1,000 mls @ 250 mls/hr IV DIRECT [facility] Last Admin: 10/01/16 06:34 Dose: 250 mls/hr Magnesium Hydroxide (Milk Of Magnesia) 30 ml PO Q4H PRN PRN Reason: Constipation Morphine Sulfate (Morphine) 15 mg PO Q4H PRN PRN Reason: Pain, Moderate (4-6) Multivitamins (Theragran Tab) 1 each PO QDAY [facility] Last Admin: 10/01/16 09:16 Dose: 1 each Ondansetron HCl (Zofran) 4 mg IV Q8H PRN PRN Reason: Nausea And Vomiting Last Admin: 10/01/16 20:07 Dose: 4 mg Oxycodone HCl (Oxycontin) 20 mg PO Q8HR [facility] Last Admin: 10/01/16 14:21 Dose: 20 mg Senna (Senokot) 17.2 mg PO QHS [facility] Last Admin: 09/30/16 21:12 Dose: 17.2 mg Review of Systems Constitutional: chronic pain Breasts: deferred Musculoskeletal: low back pain Exam - Constitutional Vitals: Temp Pulse Resp BP Pulse Ox 99.2 F 121 H 20 139/77 99 10/01/16 16:00 10/01/16 16:00 10/01/16 16:00 10/01/16 16:00 09/30/16 23:40 General appearance: Present: mild distress, well-nourished - EENT Eyes: Present: PERRL ENT: hearing intact, clear oral mucosa - Neck Neck: Present: supple, normal ROM - Respiratory Respiratory effort: normal Respiratory: bilateral: CTA - Cardiovascular Heart Sounds: Present: S1 & S2. Absent: rub, click - Extremities Extremities: pulses symmetrical, No edema Peripheral Pulses: within normal limits - Abdominal General gastrointestinal: Present: soft, non-tender, non-distended, normal bowel sounds Female genitourinary: Present: deferred - Rectal Rectal Exam: deferred - Integumentary Integumentary: Present: clear, warm, dry - Musculoskeletal Musculoskeletal: gait normal, strength equal bilaterally - Psychiatric Psychiatric: appropriate mood/affect, intact judgment & insight - Neurologic Neurologic: CNII-XII intact, moves all extremities Results - Labs CBC & Chem 7: 09/30/16 04:54 09/30/16 04:54 Assessment and Plan - Patient Problems (1) Sickle cell anemia Current Visit: Yes Status: Acute Qualifiers: Sickle-cell associated disorders: with unspecified crisis Qualified Code(s) : D57.00 - Hb-SS disease with crisis, unspecified; D57.0 - Hb-SS disease with crisis Plan to address problem: monitor labs. (2) Sickle cell pain crisis Current Visit: Yes Status: Acute Plan to address problem: pain control.
[2016-10-01] MEDS: SENOKOT PO SCH (23:11)
[2016-10-02] MEDS: OxyCONTIN PO SCH ×4 (01:19→21:38)
[2016-10-02] MEDS: D5NS 0.2% 1,000 ML IV SCH ×3 (01:23→13:00)
[2016-10-02] MEDS: DILAUDID IV PRN ×6 (03:38→21:37)
[2016-10-02] MEDS: BENADRYL IV PRN ×3 (03:39→21:37)
[2016-10-02] MEDS: LOVENOX SUB-Q SCH (09:31)
[2016-10-02] MEDS: FOLVITE PO SCH (09:32)
[2016-10-02] MEDS: THERAGRAN Tab PO SCH (09:32)
[2016-10-02] MEDS: PEPCID PO SCH (09:32)
[2016-10-02] MEDS: ZOFRAN IV PRN (14:09)
--- NOTE | 2016-10-02 20:36 | Progress Note ---
Assessment and Plan Assessment and plan: 32 year old AAF with history of sickle cell disease, cholelithiasis status post recent cholecystectomy and left arm DVT status post warfarin therapy 09/2015-03/2016 who presents with leg and arm pains. 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 Chronic pain syndrome - carefully monitor narcotics Mild hyponatremia - resolved Leukocytosis - mild, most likely reactive DVT LUE - status post post six-month anticoagulation with Coumadin; Doppler revealed no acute DVT/SVT; recanalized DVT left brachial vein and atretic left cephalic vein DVT prophylaxis - subcutaneous Lovenox Obesity - counseled for lifestyle changes Full code History Interval history: still c/o severe LUR pain Hospitalist Physical - Constitutional Vitals: Temp Pulse Resp BP Pulse Ox 98.4 F 118 H 19 140/82 99 10/02/16 16:00 10/02/16 16:00 10/02/16 16:00 10/02/16 16:00 10/02/16 07:00 General appearance: Present: no acute distress, obese - EENT Eyes: Present: PERRL, EOM intact. Absent: scleral icterus, conjunctival injection - Neck Neck: Present: normal ROM. Absent: enlarged thyroid, masses or JVD - Respiratory Respiratory effort: normal Respiratory: bilateral: CTA, negative: rhonchi, wheezing - Cardiovascular Rhythm: other (tachycardic) Heart Sounds: Present: S1 & S2. Absent: systolic murmur - Extremities Extremities: no ischemia - Abdominal General gastrointestinal: soft, non-tender, non-distended, normal bowel sounds - Neurologic Neurologic: CNII-XII intact, no focal deficits Results - Labs CBC & Chem 7: 10/03/16 13:18 10/03/16 12:39 Labs: Laboratory Last Values WBC 12.1 K/mm3 (4.5-11.0) H 09/30/16 04:54 RBC 4.16 M/mm3 (3.65-5.03) 09/30/16 04:54 Hgb 10.9 gm/dl (10.1-14.3) 09/30/16 04:54 Hct 32.3 % (30.3-42.9) 09/30/16 04:54 MCV 78 fl (79-97) L 09/30/16 04:54 MCH 26 pg (28-32) L 09/30/16 04:54 MCHC 34 % (30-34) 09/30/16 04:54 RDW 21.8 % (13.2-15.2) H 09/30/16 04:54 Plt Count 458 K/mm3 (140-440) H 09/30/16 04:54 Add Manual Diff Complete 09/28/16 14:24 Total Counted 100 09/28/16 14:24 Seg Neuts % (Manual) 52 % (40.0-70.0) 09/28/16 14:24 Band Neutrophils % 0 % 09/28/16 14:24 Lymphocytes % (Manual) 36.0 % (13.4-35.0) H 09/28/16 14:24 Reactive Lymphs % (Man) 0 % 09/28/16 14:24 Monocytes % (Manual) 11.0 % (0.0-7.3) H 09/28/16 14:24 Eosinophils % (Manual) 1.0 % (0.0-4.3) 09/28/16 14:24 Basophils % (Manual) 0 % (0.0-1.8) 09/28/16 14:24 Metamyelocytes % 0 % 09/28/16 14:24 Myelocytes % 0 % 09/28/16 14:24 Promyelocytes % 0 % 09/28/16 14:24 Blast Cells % 0 % 09/28/16 14:24 Nucleated RBC % Not Reportable 09/28/16 14:24 Seg Neutrophils # Man 5.7 K/mm3 (1.8-7.7) 09/28/16 14:24 Band Neutrophils # 0.0 K/mm3 09/28/16 14:24 Lymphocytes # (Manual) 4.0 K/mm3 (1.2-5.4) 09/28/16 14:24 Abs React Lymphs (Man) 0.0 K/mm3 09/28/16 14:24 Monocytes # (Manual) 1.2 K/mm3 (0.0-0.8) H 09/28/16 14:24 Eosinophils # (Manual) 0.1 K/mm3 (0.0-0.4) 09/28/16 14:24 Basophils # (Manual) 0.0 K/mm3 (0.0-0.1) 09/28/16 14:24 Metamyelocytes # 0.0 K/mm3 09/28/16 14:24 Myelocytes # 0.0 K/mm3 09/28/16 14:24 Promyelocytes # 0.0 K/mm3 09/28/16 14:24 Blast Cells # 0.0 K/mm3 09/28/16 14:24 WBC Morphology Not Reportable 09/28/16 14:24 Hypersegmented Neuts Not Reportable 09/28/16 14:24 Hyposegmented Neuts Not Reportable 09/28/16 14:24 Hypogranular Neuts Not Reportable 09/28/16 14:24 Smudge Cells Not Reportable 09/28/16 14:24 Toxic Granulation Not Reportable 09/28/16 14:24 Toxic Vacuolation Not Reportable 09/28/16 14:24 Dohle Bodies Not Reportable 09/28/16 14:24 Pelger-Huet Anomaly Not Reportable 09/28/16 14:24 Manjula Rods Not Reportable 09/28/16 14:24 Platelet Estimate Consistent w auto 09/28/16 14:24 Clumped Platelets Not Reportable 09/28/16 14:24 Plt Clumps, EDTA Not Reportable 09/28/16 14:24 Large Platelets Not Reportable 09/28/16 14:24 Giant Platelets Not Reportable 09/28/16 14:24 Platelet Satelliting Not Reportable 09/28/16 14:24 Plt Morphology Comment Not Reportable 09/28/16 14:24 RBC Morphology Not Reportable 09/28/16 14:24 Dimorphic RBCs Not Reportable 09/28/16 14:24 Polychromasia Not Reportable 09/28/16 14:24 Hypochromasia Not Reportable 09/28/16 14:24 Poikilocytosis 1+ 09/28/16 14:24 Anisocytosis 1+ 09/28/16 14:24 Microcytosis Few 09/28/16 14:24 Macrocytosis Not Reportable 09/28/16 14:24 Spherocytes Not Reportable 09/28/16 14:24 Pappenheimer Bodies Not Reportable 09/28/16 14:24 Sickle Cells Not Reportable 09/28/16 14:24 Target Cells 1+ 09/28/16 14:24 Tear Drop Cells Not Reportable 09/28/16 14:24 Ovalocytes Not Reportable 09/28/16 14:24 Helmet Cells Not Reportable 09/28/16 14:24 Starr-[place] Bodies Not Reportable 09/28/16 14:24 [place] Rings Not Reportable 09/28/16 14:24 [place] Cells Not Reportable 09/28/16 14:24 Bite Cells Not Reportable 09/28/16 14:24 Crenated Cell Not Reportable 09/28/16 14:24 Elliptocytes Not Reportable 09/28/16 14:24 Acanthocytes (Spur) Not Reportable 09/28/16 14:24 Rouleaux Not Reportable 09/28/16 14:24 Hemoglobin C Crystals Not Reportable 09/28/16 14:24 Schistocytes Not Reportable 09/28/16 14:24 Malaria parasites Not Reportable 09/28/16 14:24 Percent Retic 1.78 % (0.78-2.58) 09/28/16 14:24 Jack Bodies Not Reportable 09/28/16 14:24 Hem Pathologist Commnt No 09/28/16 14:24 Sodium 141 mmol/L (137-145) 09/30/16 04:54 Potassium 3.6 mmol/L (3.6-5.0) 09/30/16 04:54 Chloride 104.4 mmol/L (98-107) 09/30/16 04:54 Carbon Dioxide 22 mmol/L (22-30) 09/30/16 04:54 Anion Gap 18 mmol/L 09/30/16 04:54 BUN 4 mg/dL (7-17) L 09/30/16 04:54 Creatinine 0.6 mg/dL (0.7-1.2) L 09/30/16 04:54 Estimated GFR > 60 ml/min 09/30/16 04:54 BUN/Creatinine Ratio 6.66 % 09/30/16 04:54 Glucose 92 mg/dL (65-100) 09/30/16 04:54 Calcium 8.6 mg/dL (8.4-10.2) 09/30/16 04:54
[2016-10-02] MEDS: SENOKOT PO SCH (21:38)
--- NOTE | 2016-10-02 23:22 | Consultation ---
History of Present Illness - Reason for Consult Consult date: 10/02/16 - History of Present Illness Patient seen/examined, labs reviewed, case d/w here. C/O pain in the left UE. Past History Past Medical History: anemia Social history: no significant social history Family history: no significant family history Medications and Allergies Allergies Allergy/AdvReac Type Severity Reaction Status Date / Time No Known Allergies Allergy Verified 08/28/16 09:16 Home Medications Medication Instructions Recorded Confirmed Last Taken Type Ondansetron [Zofran ODT TAB] 4 mg PO Q8HR PRN #20 tab.rapdis 03/27/16 06/03/16 06/02/16 Rx Famotidine [Pepcid] 20 mg PO QDAY #14 tablet 04/14/16 06/03/16 06/02/16 Rx Folic Acid [Folvite] 1 mg PO QDAY #30 tablet 04/14/16 06/03/16 06/02/16 Rx Morphine [Morphine TAB] 15 mg PO Q4H PRN #15 tablet 04/14/16 06/03/16 06/02/16 Rx Multivitamin Tab [Multiple Vitamin 1 each PO QDAY #30 tablet 04/14/16 06/03/16 06/02/16 Rx TAB (Theragran)] oxyCODONE /ACETAMINOPHEN [Percocet 1 tab PO Q6HR PRN #10 tablet 08/28/16 Unknown Rx 5/325 mg] Active Meds: Active Medications Bisacodyl (Dulcolax) 10 mg [place] QDAY PRN PRN Reason: Constipation unrelieved by MOM Diphenhydramine HCl (Benadryl) 25 mg PO Q6H PRN PRN Reason: Itching Diphenhydramine HCl (Benadryl) 25 mg IV Q6H PRN PRN Reason: Itching Last Admin: 10/02/16 21:37 Dose: 25 mg Enoxaparin Sodium (Lovenox) 40 mg SUB-Q QDAY@1000 [facility]NEZ Last Admin: 10/02/16 09:31 Dose: 40 mg Famotidine (Pepcid) 20 mg PO QDAY [facility] Last Admin: 10/02/16 09:32 Dose: 20 mg Folic Acid (Folvite) 1 mg PO QDAY [facility] Last Admin: 10/02/16 09:32 Dose: 1 mg Hydromorphone HCl (Dilaudid) 2 mg IV Q3H PRN PRN Reason: Pain , Severe (7-10) Last Admin: 10/02/16 21:37 Dose: 2 mg Dextrose/Sodium Chloride (D5ns 0.2%) 1,000 mls @ 250 mls/hr IV DIRECT [facility] Last Admin: 10/02/16 13:00 Dose: 250 mls/hr Magnesium Hydroxide (Milk Of Magnesia) 30 ml PO Q4H PRN PRN Reason: Constipation Morphine Sulfate (Morphine) 15 mg PO Q4H PRN PRN Reason: Pain, Moderate (4-6) Last Admin: 10/02/16 18:37 Dose: 15 mg Multivitamins (Theragran Tab) 1 each PO QDAY [facility] Last Admin: 10/02/16 09:32 Dose: 1 each Ondansetron HCl (Zofran) 4 mg IV Q8H PRN PRN Reason: Nausea And Vomiting Last Admin: 10/02/16 14:09 Dose: 4 mg Oxycodone HCl (Oxycontin) 20 mg PO Q8HR [facility] Last Admin: 10/02/16 21:38 Dose: 20 mg Senna (Senokot) 17.2 mg PO QHS [facility] Last Admin: 10/02/16 21:38 Dose: 17.2 mg Review of Systems Constitutional: chronic pain Breasts: deferred Musculoskeletal: low back pain Exam - Constitutional Vitals: Temp Pulse Resp BP Pulse Ox 98.4 F 118 H 19 140/82 99 10/02/16 16:00 10/02/16 16:00 10/02/16 16:00 10/02/16 16:00 10/02/16 07:00 General appearance: Present: mild distress, well-nourished - EENT Eyes: Present: PERRL ENT: hearing intact, clear oral mucosa - Neck Neck: Present: supple, normal ROM - Respiratory Respiratory effort: normal Respiratory: bilateral: CTA - Cardiovascular Heart Sounds: Present: S1 & S2. Absent: rub, click - Extremities Extremities: pulses symmetrical, No edema Peripheral Pulses: within normal limits - Abdominal General gastrointestinal: Present: soft, non-tender, non-distended, normal bowel sounds Female genitourinary: Present: deferred - Rectal Rectal Exam: deferred - Integumentary Integumentary: Present: clear, warm, dry - Musculoskeletal Musculoskeletal: gait normal, strength equal bilaterally - Psychiatric Psychiatric: appropriate mood/affect, intact judgment & insight - Neurologic Neurologic: CNII-XII intact, moves all extremities Results - Labs CBC & Chem 7: 09/30/16 04:54 09/30/16 04:54 Assessment and Plan - Patient Problems (1) Sickle cell anemia Current Visit: Yes Status: Acute Qualifiers: Sickle-cell associated disorders: with unspecified crisis Qualified Code(s) : D57.00 - Hb-SS disease with crisis, unspecified; D57.0 - Hb-SS disease with crisis Plan to address problem: monitor labs. (2) Sickle cell pain crisis Current Visit: Yes Status: Acute Plan to address problem: pain control.
[2016-10-03] MEDS: D5NS 0.2% 1,000 ML IV SCH ×2 (00:50→10:10)
[2016-10-03] MEDS: DILAUDID IV PRN ×7 (00:51→19:40)
[2016-10-03 00:54] LABS: Hematocrit 33.1 % (30.3-42.9); Hemoglobin 11.1 gm/dl (10.1-14.3); Mean Corpuscular HGB Conc 33 % (30-34); Mean Corpuscular Hemoglobin 26 pg (28-32); Mean Corpuscular Volume 78 fl (79-97); Platelet Count 406 K/mm3 (140-440); Red Blood Count 4.24 M/mm3 (3.65-5.03); Red Cell Distribution Width 22.9 % (13.2-15.2); White Blood Count 12.5 K/mm3 (4.5-11.0)
[2016-10-03 03:37] LABS: Basophils % (Manual) 0 % (0.0-1.8); Blastocytes % (Manual) 0 %
[2016-10-03 03:38] LABS: Anisocytosis 2+; Diff Status Complete; Hypochromasia 1+; Platelet Estimate Consistent w Auto; Schistocytes Few; Target Cells 1+
[2016-10-03] MEDS: BENADRYL IV PRN ×3 (03:48→16:28)
[2016-10-03] MEDS: OxyCONTIN PO SCH ×3 (06:50→22:04)
[2016-10-03 07:00] LABS: Reticulocyte % 2.82 % (0.78-2.58)
[2016-10-03] MEDS: PEPCID PO SCH (10:08)
[2016-10-03] MEDS: FOLVITE PO SCH (10:08)
[2016-10-03] MEDS: LIDODERM 5% TD SCH (10:09)
[2016-10-03] MEDS: LOVENOX SUB-Q SCH (10:09)
[2016-10-03] MEDS: THERAGRAN Tab PO SCH (10:09)
[2016-10-03 12:59] LABS: Anion Gap 19 mmol/L; Blood Urea Nitrogen 3 mg/dL (7-17); Calcium 8.7 mg/dL (8.4-10.2); Carbon Dioxide 21 mmol/L (22-30); Chloride 98.5 mmol/L (98-107); Glucose 92 mg/dL (65-100); Potassium 4.1 mmol/L (3.6-5.0); Sodium 134 mmol/L (137-145)
[2016-10-03 13:30] LABS: Hematocrit 29.1 % (30.3-42.9); Mean Corpuscular HGB Conc 34 % (30-34); Mean Corpuscular Hemoglobin 26 pg (28-32); Mean Corpuscular Volume 76 fl (79-97); Platelet Count 397 K/mm3 (140-440); Red Blood Count 3.82 M/mm3 (3.65-5.03); White Blood Count 13.6 K/mm3 (4.5-11.0)
--- NOTE | 2016-10-03 13:36 | XRay Report ---
AP CHEST: HISTORY: Short of breath AP view of the chest demonstrates a normal mediastinal and cardiac contour with clear lungs and normal bony and soft tissue structures. IMPRESSION: Unremarkable AP chest. No significant change since 02/26/16.
[2016-10-03 13:38] LABS: Red Cell Distribution Width 22.2 % (13.2-15.2)
[2016-10-03 14:10] LABS: Anisocytosis 2+; Basophils % (Manual) 0 % (0.0-1.8); Blastocytes % (Manual) 0 %
[2016-10-03 14:11] LABS: Hypochromasia 2+; Target Cells 2+
[2016-10-03 14:12] LABS: Polychromasia Rare; Schistocytes Few
[2016-10-03 14:13] LABS: Diff Status Complete
--- NOTE | 2016-10-03 18:06 | Consultation ---
History of Present Illness - Reason for Consult Consult date: 10/03/16 - History of Present Illness Patient seen/examined, resting ok in bed, labs reviewed, and ok. The only pain is in her left UE. will do xry, and if not acute issues, D/C will be as per you. Past History Past Medical History: anemia Social history: no significant social history Family history: no significant family history Medications and Allergies Allergies Allergy/AdvReac Type Severity Reaction Status Date / Time No Known Allergies Allergy Verified 08/28/16 09:16 Home Medications Medication Instructions Recorded Confirmed Last Taken Type Ondansetron [Zofran ODT TAB] 4 mg PO Q8HR PRN #20 tab.rapdis 03/27/16 06/03/16 06/02/16 Rx Famotidine [Pepcid] 20 mg PO QDAY #14 tablet 04/14/16 06/03/16 06/02/16 Rx Folic Acid [Folvite] 1 mg PO QDAY #30 tablet 04/14/16 06/03/16 06/02/16 Rx Morphine [Morphine TAB] 15 mg PO Q4H PRN #15 tablet 04/14/16 06/03/16 06/02/16 Rx Multivitamin Tab [Multiple Vitamin 1 each PO QDAY #30 tablet 04/14/16 06/03/16 06/02/16 Rx TAB (Theragran)] oxyCODONE /ACETAMINOPHEN [Percocet 1 tab PO Q6HR PRN #10 tablet 08/28/16 Unknown Rx 5/325 mg] Active Meds: Active Medications Bisacodyl (Dulcolax) 10 mg MN QDAY PRN PRN Reason: Constipation unrelieved by MOM Diphenhydramine HCl (Benadryl) 25 mg PO Q6H PRN PRN Reason: Itching Diphenhydramine HCl (Benadryl) 25 mg IV Q6H PRN PRN Reason: Itching Last Admin: 10/03/16 16:28 Dose: 25 mg Enoxaparin Sodium (Lovenox) 40 mg SUB-Q QDAY@1000 MARTÍNEZ Last Admin: 10/03/16 10:09 Dose: 40 mg Famotidine (Pepcid) 20 mg PO QDAY [facility] Last Admin: 10/03/16 10:08 Dose: 20 mg Folic Acid (Folvite) 1 mg PO QDAY [facility]ART[facility]NEZ Last Admin: 10/03/16 10:08 Dose: 1 mg Hydromorphone HCl (Dilaudid) 2 mg IV Q3H PRN PRN Reason: Pain , Severe (7-10) Last Admin: 10/03/16 16:28 Dose: 2 mg Dextrose/Sodium Chloride (D5ns 0.2%) 1,000 mls @ 250 mls/hr IV DIRECT [facility] Last Admin: 10/03/16 10:10 Dose: 250 mls/hr Lidocaine (Lidoderm 5%) 1 each TD QDAY [facility] Last Admin: 10/03/16 10:09 Dose: 1 each Magnesium Hydroxide (Milk Of Magnesia) 30 ml PO Q4H PRN PRN Reason: Constipation Morphine Sulfate (Morphine) 15 mg PO Q4H PRN PRN Reason: Pain, Moderate (4-6) Last Admin: 10/02/16 18:37 Dose: 15 mg Multivitamins (Theragran Tab) 1 each PO QDAY [facility] Last Admin: 10/03/16 10:09 Dose: 1 each Ondansetron HCl (Zofran) 4 mg IV Q8H PRN PRN Reason: Nausea And Vomiting Last Admin: 10/02/16 14:09 Dose: 4 mg Oxycodone HCl (Oxycontin) 20 mg PO Q8HR [facility] Last Admin: 10/03/16 14:39 Dose: 20 mg Senna (Senokot) 17.2 mg PO QHS [facility] Last Admin: 10/02/16 21:38 Dose: 17.2 mg Review of Systems Constitutional: chronic pain Breasts: deferred Musculoskeletal: low back pain Exam - Constitutional Vitals: Temp Pulse Resp BP Pulse Ox 97.9 F 112 H 20 123/77 99 10/03/16 14:30 10/03/16 14:30 10/03/16 14:30 10/03/16 14:30 10/03/16 07:00 General appearance: Present: mild distress, well-nourished - EENT Eyes: Present: PERRL ENT: hearing intact, clear oral mucosa - Neck Neck: Present: supple, normal ROM - Respiratory Respiratory effort: normal Respiratory: bilateral: CTA - Cardiovascular Heart Sounds: Present: S1 & S2. Absent: rub, click - Extremities Extremities: pulses symmetrical, No edema Peripheral Pulses: within normal limits - Abdominal General gastrointestinal: Present: soft, non-tender, non-distended, normal bowel sounds Female genitourinary: Present: deferred - Rectal Rectal Exam: deferred - Integumentary Integumentary: Present: clear, warm, dry - Musculoskeletal Musculoskeletal: gait normal, strength equal bilaterally - Psychiatric Psychiatric: appropriate mood/affect, intact judgment & insight - Neurologic Neurologic: CNII-XII intact, moves all extremities Results - Labs CBC & Chem 7: 10/03/16 13:18 10/03/16 12:39 Labs: Abnormal lab results 10/02/16 10/03/16 10/03/16 Range/Units 23:45 05:56 12:39 WBC 12.5 H (4.5-11.0) K/mm3 Hgb (10.1-14.3) gm/dl Hct (30.3-42.9) % MCV 78 L (79-97) fl MCH 26 L (28-32) pg RDW 22.9 H (13.2-15.2) % Seg Neuts % (Manual) 36.0 L (40.0-70.0) % Lymphocytes % (Manual) 44.0 H (13.4-35.0) % Monocytes % (Manual) 11.0 H (0.0-7.3) % Eosinophils % (Manual) 9.0 H (0.0-4.3) % Lymphocytes # (Manual) 5.5 H (1.2-5.4) K/mm3 Monocytes # (Manual) 1.4 H (0.0-0.8) K/mm3 Eosinophils # (Manual) 1.1 H (0.0-0.4) K/mm3 Percent Retic 2.82 H (0.78-2.58) % Sodium 134 L (137-145) mmol/L Carbon Dioxide 21 L (22-30) mmol/L BUN 3 L (7-17) mg/dL Creatinine 0.4 L (0.7-1.2) mg/dL 10/03/16 Range/Units 13:18 WBC 13.6 H (4.5-11.0) K/mm3 Hgb 10.0 L (10.1-14.3) gm/dl Hct 29.1 L (30.3-42.9) % MCV 76 L (79-97) fl MCH 26 L (28-32) pg RDW 22.2 H (13.2-15.2) % Seg Neuts % (Manual) 31.0 L (40.0-70.0) % Lymphocytes % (Manual) 48.0 H (13.4-35.0) % Monocytes % (Manual) 10.0 H (0.0-7.3) % Eosinophils % (Manual) 11.0 H (0.0-4.3) % Lymphocytes # (Manual) 6.5 H (1.2-5.4) K/mm3 Monocytes # (Manual) 1.4 H (0.0-0.8) K/mm3 Eosinophils # (Manual) 1.5 H (0.0-0.4) K/mm3 Percent Retic (0.78-2.58) % Sodium (137-145) mmol/L Carbon Dioxide (22-30) mmol/L BUN (7-17) mg/dL Creatinine (0.7-1.2) mg/dL Assessment and Plan - Patient Problems (1) Sickle cell anemia Current Visit: Yes Status: Acute Qualifiers: Sickle-cell associated disorders: with unspecified crisis Qualified Code(s) : D57.00 - Hb-SS disease with crisis, unspecified; D57.0 - Hb-SS disease with crisis Plan to address problem: monitor labs. (2) Sickle cell pain crisis Current Visit: Yes Status: Acute Plan to address problem: pain control.
--- NOTE | 2016-10-03 20:24 | XRay Report ---
FINAL REPORT EXAM: XR SHOULDER 2+V LT HISTORY: Persistent pain. TECHNIQUE: AP internal rotation, external rotation and transscapular views of the left shoulder. PRIORS: None. FINDINGS: The osseous mineralization and alignment are normal. The humeral head is normal in contour. The joint spaces are normal. There is no evidence of fracture or dislocation. No significant soft tissue abnormality is seen. IMPRESSION: Normal. Left shoulder.
--- NOTE | 2016-10-03 21:17 | Progress Note ---
Assessment and Plan Assessment and plan: 32 year old AAF with history of sickle cell disease, cholelithiasis status post recent cholecystectomy and left arm DVT status post warfarin therapy 09/2015-03/2016 who presents with leg and arm pains. 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, her clinical assistant, consulted and increased dose/frequency of dilaudid which she was asking for Chronic pain syndrome - carefully monitor narcotics Mild hyponatremia - resolved Leukocytosis - mild, most likely reactive DVT LUE - status post post six-month anticoagulation with Coumadin; Doppler revealed no acute DVT/SVT; recanalized DVT left brachial vein and atretic left cephalic vein DVT prophylaxis - subcutaneous Lovenox Obesity - counseled for lifestyle changes Full code History Interval history: still c/o severe LUR pain, asking constantly for iv pain control meds Hospitalist Physical - Constitutional Vitals: Temp Pulse Resp BP Pulse Ox 97.9 F 112 H 20 123/77 99 10/03/16 14:30 10/03/16 14:30 10/03/16 14:30 10/03/16 14:30 10/03/16 07:00 General appearance: Present: no acute distress, obese - EENT Eyes: Present: PERRL, EOM intact. Absent: scleral icterus, conjunctival injection - Neck Neck: Present: supple. Absent: enlarged thyroid, masses or JVD - Respiratory Respiratory effort: normal Respiratory: bilateral: CTA, negative: rhonchi, wheezing - Cardiovascular Rhythm: other Heart Sounds: Present: S1 & S2. Absent: systolic murmur - Extremities Extremities: no ischemia - Abdominal General gastrointestinal: soft, non-tender, non-distended, normal bowel sounds - Psychiatric Psychiatric: cooperative Results - Labs CBC & Chem 7: 10/03/16 13:18 10/03/16 12:39 Labs: Laboratory Last Values WBC 13.6 K/mm3 (4.5-11.0) H 10/03/16 13:18 RBC 3.82 M/mm3 (3.65-5.03) 10/03/16 13:18 Hgb 10.0 gm/dl (10.1-14.3) L 10/03/16 13:18 Hct 29.1 % (30.3-42.9) L 10/03/16 13:18 MCV 76 fl (79-97) L 10/03/16 13:18 MCH 26 pg (28-32) L 10/03/16 13:18 MCHC 34 % (30-34) 10/03/16 13:18 RDW 22.2 % (13.2-15.2) H 10/03/16 13:18 Plt Count 397 K/mm3 (140-440) 10/03/16 13:18 Lymph # [employer] 10/03/16 13:18 Add Manual Diff Complete 10/03/16 13:18 Total Counted 100 10/03/16 13:18 Seg Neuts % (Manual) 31.0 % (40.0-70.0) L 10/03/16 13:18 Band Neutrophils % 0 % 10/03/16 13:18 Lymphocytes % (Manual) 48.0 % (13.4-35.0) H 10/03/16 13:18 Reactive Lymphs % (Man) 0 % 10/03/16 13:18 Monocytes % (Manual) 10.0 % (0.0-7.3) H 10/03/16 13:18 Eosinophils % (Manual) 11.0 % (0.0-4.3) H 10/03/16 13:18 Basophils % (Manual) 0 % (0.0-1.8) 10/03/16 13:18 Metamyelocytes % 0 % 10/03/16 13:18 Myelocytes % 0 % 10/03/16 13:18 Promyelocytes % 0 % 10/03/16 13:18 Blast Cells % 0 % 10/03/16 13:18 Nucleated RBC % Not Reportable 10/03/16 13:18 Seg Neutrophils # Man 4.2 K/mm3 (1.8-7.7) 10/03/16 13:18 Band Neutrophils # 0.0 K/mm3 10/03/16 13:18 Lymphocytes # (Manual) 6.5 K/mm3 (1.2-5.4) H 10/03/16 13:18 Abs React Lymphs (Man) 0.0 K/mm3 10/03/16 13:18 Monocytes # (Manual) 1.4 K/mm3 (0.0-0.8) H 10/03/16 13:18 Eosinophils # (Manual) 1.5 K/mm3 (0.0-0.4) H 10/03/16 13:18 Basophils # (Manual) 0.0 K/mm3 (0.0-0.1) 10/03/16 13:18 Metamyelocytes # 0.0 K/mm3 10/03/16 13:18 Myelocytes # 0.0 K/mm3 10/03/16 13:18 Promyelocytes # 0.0 K/mm3 10/03/16 13:18 Blast Cells # 0.0 K/mm3 10/03/16 13:18 WBC Morphology Not Reportable 10/03/16 13:18 Hypersegmented Neuts Not Reportable 10/03/16 13:18 Hyposegmented Neuts Not Reportable 10/03/16 13:18 Hypogranular Neuts Not Reportable 10/03/16 13:18 Smudge Cells Not Reportable 10/03/16 13:18 Toxic Granulation Not Reportable 10/03/16 13:18 Toxic Vacuolation Not Reportable 10/03/16 13:18 Dohle Bodies Not Reportable 10/03/16 13:18 Pelger-Huet Anomaly Not Reportable 10/03/16 13:18 Manjula Rods Not Reportable 10/03/16 13:18 Platelet Estimate Not Reportable 10/03/16 13:18 Clumped Platelets Not Reportable 10/03/16 13:18 Plt Clumps, EDTA Not Reportable 10/03/16 13:18 Large Platelets Not Reportable 10/03/16 13:18 Giant Platelets Not Reportable 10/03/16 13:18 Platelet Satelliting Not Reportable 10/03/16 13:18 Plt Morphology Comment Not Reportable 10/03/16 13:18 RBC Morphology Not Reportable 10/03/16 13:18 Dimorphic RBCs Not Reportable 10/03/16 13:18 Polychromasia Rare 10/03/16 13:18 Hypochromasia 2+ 10/03/16 13:18 Poikilocytosis Not Reportable 10/03/16 13:18 Anisocytosis 2+ 10/03/16 13:18 Microcytosis Not Reportable 10/03/16 13:18 Macrocytosis Not Reportable 10/03/16 13:18 Spherocytes Not Reportable 10/03/16 13:18 Pappenheimer Bodies Not Reportable 10/03/16 13:18 Sickle Cells Not Reportable 10/03/16 13:18 Target Cells 2+ 10/03/16 13:18 Tear Drop Cells Not Reportable 10/03/16 13:18 Ovalocytes Not Reportable 10/03/16 13:18 Helmet Cells Not Reportable 10/03/16 13:18 Starr-Kennan Bodies Not Reportable 10/03/16 13:18 [place] Rings Not Reportable 10/03/16 13:18 [place] Cells Not Reportable 10/03/16 13:18 Bite Cells Not Reportable 10/03/16 13:18 Crenated Cell Not Reportable 10/03/16 13:18 Elliptocytes Not Reportable 10/03/16 13:18 Acanthocytes (Spur) Not Reportable 10/03/16 13:18 Rouleaux Not Reportable 10/03/16 13:18 Hemoglobin C Crystals Not Reportable 10/03/16 13:18 Schistocytes Few 10/03/16 13:18 Malaria parasites Not Reportable 10/03/16 13:18 Percent Retic 2.82 % (0.78-2.58) H 10/03/16 05:56 Jack Bodies Not Reportable 10/03/16 13:18 Hem Pathologist Commnt No 10/03/16 13:18 Sodium 134 mmol/L (137-145) L 10/03/16 12:39 Potassium 4.1 mmol/L (3.6-5.0) 10/03/16 12:39 Chloride 98.5 mmol/L (98-107) 10/03/16 12:39 Carbon Dioxide 21 mmol/L (22-30) L 10/03/16 12:39 Anion Gap 19 mmol/L 10/03/16 12:39 BUN 3 mg/dL (7-17) L 10/03/16 12:39 Creatinine 0.4 mg/dL (0.7-1.2) L 10/03/16 12:39 Estimated GFR > 60 ml/min 10/03/16 12:39 BUN/Creatinine Ratio 7.50 % 10/03/16 12:39 Glucose 92 mg/dL (65-100) 10/03/16 12:39 Lactic Acid 1.70 mmol/L (0.7-2.0) 10/03/16 13:18 Calcium 8.7 mg/dL (8.4-10.2) 10/03/16 12:39
[2016-10-03] MEDS: SENOKOT PO SCH (22:04)
[2016-10-04] MEDS: DILAUDID IV PRN ×5 (00:53→13:18)
[2016-10-04] MEDS: BENADRYL IV PRN ×3 (00:56→13:19)
[2016-10-04 04:46] LABS: Bacteria,Urine 1+ /HPF (Negative); Bilirubin,Urine NEG (Negative); Blood,Urine LG (Negative); Ketones,Urine NEG (Negative); Leukocyte Esterase,Urine TR (Negative); Mucus,Urine FEW /HPF; Nitrite,Urine NEG (Negative); Urobilinogen,Urine < 2.0 mg/dL (<2.0)
[2016-10-04] MEDS: OxyCONTIN PO SCH ×2 (05:53→13:18)
[2016-10-04] MEDS: D5NS 0.2% 1,000 ML IV SCH (06:19)
[2016-10-04 07:53] VITALS: BP 124/89
--- NOTE | 2016-10-04 08:00 | XRay Report ---
LEFT HUMERUS: History: Left arm pain. AP and lateral views of the humerus demonstrate normal mineralization and contours for this patient's age. No destructive changes are noted and the adjacent soft tissues are normal. IMPRESSION: Unremarkable left humerus.
[2016-10-04] MEDS: LIDODERM 5% TD SCH (10:15)
[2016-10-04] MEDS: FOLVITE PO SCH (10:16)
[2016-10-04] MEDS: THERAGRAN Tab PO SCH (10:16)
[2016-10-04] MEDS: LOVENOX SUB-Q SCH (10:16)
[2016-10-04] MEDS: PEPCID PO SCH (10:17)
--- NOTE | 2016-10-04 10:46 | Discharge Summary ---
Providers - Providers Date of Admission: 09/29/16 06:59 Date of discharge: 10/04/16 Attending physician: LEONARDO PLATA 09/29/16 12:57 Consult to Physician [CONS] Routine Consulting Provider: BRITNI SOLARES Reason For Exam: ss pain crisis, pt known to you Place consult to:: [place] Notified:: office Phone number called:: Was contact made?: Yes If yes, spoke with:: shant Time called:: 14:26 Primary care physician: HAT BRUSHER MACHINE Hospitalization Condition: Good Hospital course: Patient is 31-year-old with sickle cell disease, history of DVT left upper extremity. She presents with generalized body pain. She was diagnosed with sickle cell vaso-occlusive crisis. She was started on narcotics, IV fluids and admitted. Layout Inspector, Dr. Solares was consulted and evaluated her. Doppler ultrasound left upper extremity was done. This did not show acute DVT but chronic DVT left upper extremity she had previously had six-month anticoagulation, so no further anticoagulation recommended. She improved slowly with pain management service discharge on 10/04/2016. Total time spent on discharge,32 minutes Disposition: DC-01 TO HOME OR SELFCARE - Discharge Diagnoses (1) Vasoocclusive sickle cell crisis Status: Acute (2) UTI (urinary tract infection) Status: Acute Qualifiers: Urinary tract infection type: acute cystitis Hematuria presence: H Indwelling urinary catheter type: I Encounter type: E (3) Hyponatremia Status: Acute (4) Leukocytosis Status: Acute Qualifiers: Leukocytosis type: L Core Measure Documentation - Palliative Care Palliative Care/ Comfort Measures: Not Applicable - Core Measures Any of the following diagnoses?: none Exam - Constitutional Vitals: Temp Pulse Resp BP Pulse Ox 98.7 F 121 H 20 124/89 97 10/04/16 07:00 10/04/16 07:00 10/04/16 07:00 10/04/16 07:00 10/04/16 07:00 Plan Activity: no restrictions Diet: low fat, low cholesterol Additional Instructions: 1.Follow up with Dr. Solares in 1 week Follow up with: PRIMARY CAREMD [Primary Care Provider] - 3-5 Days
== END 2016-10-04 15:15 | disposition home or self-care (01) | DRG 812 ==
LOC: ED 13:12 → 3A 09-29 06:59
PROVIDERS: ADMIT Internal Medicine; ATTEND Internal Medicine
DX: D57.00 Hb-SS disease with crisis, unspecified (principal); E87.1 Hypo-osmolality and hyponatremia; F17.200 Nicotine dependence, unspecified, uncomplicated; G89.4 Chronic pain syndrome; D72.829 Elevated white blood cell count, unspecified; E66.9 Obesity, unspecified; Z68.38 Body mass index [BMI] 38.0-38.9, adult; Z86.718 Personal history of other venous thrombosis and embolism; Z98.891 History of uterine scar from previous surgery; Z90.49 Acquired absence of other specified parts of digestive tract; Z83.2 Family history of diseases of the blood and blood-forming organs and certain disorders involving the immune mechanism
CPT/HCPCS: 36415; 71010; 80048; 81001; 82140; 85007; 85025; 85027; 85045; 96374; 96375; 96376; J1170; J1200; J1650; J2405

== ENCOUNTER 2017-01-01 15:34 | Emergency (ER) | payer MEDICAID, MEDICARE ==
[2017-01-01] MEDS ORDERED: D5NS 0.2% 1,000 ML IV SCH (16:00)
[2017-01-01 16:13] LABS: Hematocrit 30.5 % (30.3-42.9); Hemoglobin 9.9 gm/dl (10.1-14.3); Mean Corpuscular HGB Conc 33 % (30-34); Mean Corpuscular Volume 70 fl (79-97); Platelet Count 435 K/mm3 (140-440); Red Blood Count 4.36 M/mm3 (3.65-5.03); White Blood Count 10.1 K/mm3 (4.5-11.0)
[2017-01-01 16:20] LABS: Mean Corpuscular Hemoglobin 23 pg (28-32); Red Cell Distribution Width 26.9 % (13.2-15.2)
[2017-01-01 17:27] LABS: Anisocytosis 2+; Basophils % (Manual) 0 % (0.0-1.8); Blastocytes % (Manual) 0 %
[2017-01-01 17:28] LABS: Hypochromasia 1+; Stomatocytes Few; Target Cells 2+
[2017-01-01 17:29] LABS: Diff Status Complete; Platelet Estimate Consistent w Auto
[2017-01-01] MEDS ORDERED: DILAUDID IV ONE (23:31)
--- NOTE | 2017-01-01 23:34 | Emergency Department Report ---
HPI - General Chief Complaint: Sickle Cell Crisis Time Seen by Provider: 01/01/17 23:08 - HPI HPI: This is a 31-year-old after an [place] female who presents to the emergency department with a 2 day history of right upper extremity pain and swelling. She says that the swelling has improved but the pain has not and is currently 10 out of 10 in intensity. She is on Folic Acid and hydroxyurea and has been trying to take Percocet for pain. She does have a history of left upper extremity DVT but is not currently on any blood thinners after finishing a 6 month course. She has an appointment coming up next week at [place] at the sickle cell clinic. She denies any fever, nausea, vomiting, chest pain, shortness of breath. No recent travel or sick contacts at home. ED Past Medical Hx - Past Medical History Previous Medical History?: Yes Hx Deep Vein Thrombosis: Yes (L Arm) Hx Sickle Cell Disease: Yes Additional medical history: DVT left arm 07/2015, sleep apnea - Surgical History Past Surgical History?: Yes Hx Cholecystectomy: Yes Additional Surgical History: X 2. TONSILLECTOMY. Splenectomy - Social History Smoking Status: Never Smoker Substance Use Type: None - Medications Home Medications: Home Medications Medication Instructions Recorded Confirmed Last Taken Type Ondansetron [Zofran ODT TAB] 4 mg PO Q8HR PRN #20 tab.rapdis 03/27/16 06/03/16 06/02/16 Rx Famotidine [Pepcid] 20 mg PO QDAY #14 tablet 04/14/16 06/03/16 06/02/16 Rx Folic Acid [Folvite] 1 mg PO QDAY #30 tablet 04/14/16 06/03/16 06/02/16 Rx Multivitamin Tab [Multiple Vitamin 1 each PO QDAY #30 tablet 04/14/16 06/03/16 06/02/16 Rx TAB (Theragran)] oxyCODONE /ACETAMINOPHEN [Percocet 1 tab PO Q6HR PRN #10 tablet 08/28/16 Unknown Rx 5/325 mg] Oxycodone HCl/Acetaminophen 1 each PO Q6HR PRN #20 tablet 12/16/16 Unknown Rx [Percocet 10/325 mg] HYDROcodone/ACETAMINOPHEN [[place] 1 - 2 each PO Q4-6H PRN #14 tablet 12/18/16 Unknown Rx 5-325 Tablet] Ibuprofen [Motrin 800 MG tab] 800 mg PO Q8HR PRN #20 tablet 12/18/16 Unknown Rx Sulfamethoxazole/Trimethoprim 1 each PO BID #14 tablet 01/02/17 Unknown Rx [Bactrim DS TAB] ED Review of Systems ROS: Stated complaint: RIGHT ARM PAIN SICKLE CELL Other details as noted in HPI Comment: All other systems reviewed and negative Constitutional: denies: chills, fever Eyes: denies: eye pain, eye discharge, vision change ENT: denies: ear pain, throat pain Respiratory: denies: cough, shortness of breath, wheezing Cardiovascular: edema (non pitting RUE swelling). denies: chest pain, palpitations Gastrointestinal: denies: abdominal pain, nausea, diarrhea Genitourinary: denies: urgency, dysuria, discharge Musculoskeletal: joint swelling, arthralgia, myalgia Skin: denies: rash, lesions Neurological: denies: headache, weakness, paresthesias Physical Exam - Physical Exam Vital Signs: Vital Signs 01/01/17 01/01/17 15:40 19:51 Temperature 97.3 F L 98.7 F Pulse Rate 105 H 90 Respiratory 18 18 Rate Blood Pressure 120/74 124/80 O2 Sat by Pulse 98 100 Oximetry Physical Exam: GENERAL: The patient is well-developed well-nourished. HENT: Normocephalic. Atraumatic. Patient has moist mucous membranes. EYES: Extraocular motions are intact. Pupils equal reactive to light bilaterally. NECK: Supple. Trachea is midline. CHEST/LUNGS: Clear to auscultation. There is no respiratory distress noted. HEART/CARDIOVASCULAR: Regular. There is no tachycardia. There is no gallop rub or murmur. ABDOMEN: Abdomen is soft, nontender. Patient has normal bowel sounds. There is no abdominal distention. SKIN: Skin is warm and dry. There is some blotchy areas of erythema to the right upper extremity, mostly to the forearm. There is nonpitting swelling of the right forearm compared to the left. No bleeding, weeping, drainage. NEURO: The patient is awake, alert, and oriented. The patient is cooperative. The patient has no focal neurologic deficits. The patient has normal speech . MUSCULOSKELETAL: Unable to reproduce the patient's right arm pain to palpation. Radial pulse +2 over 4 bilaterally. Cap refill less than 2 seconds. There is no limitation range of motion. There is no evidence of acute injury. ED Course Vital Signs 01/01/17 01/01/17 15:40 19:51 Temperature 97.3 F L 98.7 F Pulse Rate 105 H 90 Respiratory 18 18 Rate Blood Pressure 120/74 124/80 O2 Sat by Pulse 98 100 Oximetry ED Medical Decision Making - Lab Data Result diagrams: 01/01/17 15:51 01/02/17 00:17 - Medical Decision Making 31-year-old female presents to the emergency department with complaint of right arm pain that she says is typical for a sickle cell pain crisis for her. However it does have some swelling and that is not as typical. On top of that, the patient does have a history of chronic left upper extremity DVT and is not currently on any blood thinners as it is past the 6 month michele of treatment. Her labs show some anemia with hemoglobin of almost 10. She does have a reticulocyte count of 3. There is no leukocytosis. Her vital signs are stable throughout her course including being afebrile. She was given pain medication for her discomfort with some relief. Unfortunately I am unable to obtain a venous Doppler ultrasound of the right upper extremity at this time. She was given a dose of Lovenox at 1 unit per KG subcutaneously to anticoagulate her temporarily. She has been set up to return around 10 AM this morning to have a outpatient venous Doppler ultrasound of the right upper extremity. If negative , the patient has been encouraged to follow up with her primary care doctor and/ or forklift truck operator. If positive, she will be redirected to the emergency department for further evaluation and anticoagulation. Due to the swelling, discomfort and some erythema seen to the forearm, the patient will be treated with antibiotics for possible cellulitis. She understands to return to the emergency Department with any worsening of her symptoms or any acute distress. - Differential Diagnosis cellulitis, DVT, sickle cell pain crisis Critical Care Time: No Critical care attestation.: If time is entered above; I have spent that time in minutes in the direct care of this critically ill patient, excluding procedure time. ED Disposition Clinical Impression: Right arm pain, Swelling of right upper extremity, Sickle cell crisis, Sickle cell pain crisis Disposition: DC- TO HOME OR SELFCARE Is pt being admited?: No Condition: Stable Instructions: Sickle Cell Crisis (ED), Arthralgia (ED) Additional Instructions: I am going to get you set up for a right upper extremity Doppler ultrasound to rule out a DVT/blood clot as the source of your arm pain and swelling. Please show up to the emergency department front edger later today around 10 AM and they should be able to get you in touch with the respiratory technician to get this test completed. If it comes back positive, he will be redirected to the emergency department for further evaluation and anticoagulation. If the test comes back negative, continue with the plan of following up with the primary care physician and/or forklift truck operator. Take the antibiotics as prescribed. Return to the emergency Department with any worsening of your symptoms, which includes increased pain, rednessness or swelling or any acute distress. Prescriptions: Sulfamethoxazole/Trimethoprim [Bactrim DS TAB] 1 each PO BID #14 tablet Referrals: [facility] [Outside] - [facility] Time of Disposition: 03:37
[2017-01-02 00:42] LABS: Anion Gap 23 mmol/L; BUN/Creatinine Ratio 30; Blood Urea Nitrogen 12 mg/dL (7-17); Carbon Dioxide 18 mmol/L (22-30); Chloride 106.4 mmol/L (98-107); Glucose 89 mg/dL (65-100); Potassium 4.9 mmol/L (3.6-5.0); Sodium 142 mmol/L (137-145)
[2017-01-02] MEDS ORDERED: BENADRYL IV ONE (01:16)
[2017-01-02] MEDS ORDERED: DILAUDID IV ONE (02:26)
[2017-01-02] MEDS ORDERED: LOVENOX SUB-Q ONE (03:31)
[2017-01-02] MEDS ORDERED: BACTRIM DS PO ONE (03:31)
[2017-01-02 03:56] VITALS: BP 124/73
== END 2017-01-02 04:21 | disposition home or self-care (01) ==
LOC: ED 15:34
DX: D57.00 Hb-SS disease with crisis, unspecified (principal); I82.622 Acute embolism and thrombosis of deep veins of left upper extremity; Z88.5 Allergy status to narcotic agent
CPT/HCPCS: 36415; 80048; 84703; 85007; 85025; 85045; 93971; 96372; 96374; 96375; 96376; 99284; J1170; J1200; J1650

== ENCOUNTER 2017-02-06 02:06 | Emergency (ER) | payer MEDICARE ==
[2017-02-06 05:49] LABS: Hemoglobin 9.7 gm/dl (10.1-14.3); Mean Corpuscular HGB Conc 33 % (30-34); Mean Corpuscular Hemoglobin 24 pg (28-32); Mean Corpuscular Volume 74 fl (79-97); Red Blood Count 4.05 M/mm3 (3.65-5.03); Red Cell Distribution Width 30.6 % (13.2-15.2); Reticulocyte % 1.87 % (0.78-2.58); White Blood Count 10.1 K/mm3 (4.5-11.0)
[2017-02-06 05:51] LABS: Platelet Count 1028 K/mm3 (140-440)
[2017-02-06 06:31] LABS: Blastocytes % (Manual) 0 %
[2017-02-06 06:32] LABS: Anisocytosis 2+; Hypochromasia 2+; Microcytosis 1+; Ovalocytes 1+; Schistocytes Rare; Target Cells 2+
[2017-02-06 06:33] LABS: Diff Status Complete; Large Platelets Few; Platelet Estimate Appears Increased; Tear Drop Cells Rare
[2017-02-06 08:26] VITALS: BP 129/72
[2017-02-06] MEDS ORDERED: BENADRYL IV ONE (10:19)
[2017-02-06] MEDS ORDERED: DILAUDID IV ONE (10:19)
[2017-02-06] MEDS ORDERED: ZOFRAN IV ONE (10:19)
--- NOTE | 2017-02-06 10:24 | Emergency Department Report ---
HPI - General Chief Complaint: Sickle Cell Crisis Time Seen by Provider: 02/06/17 10:14 - HPI HPI: Room 18 The patient is a 31-year-old female presenting with a chief complaint sickle cell pain crisis. The patient states for the past 2 days she has had pain in both upper extremities and her right knee. The patient states the pain feels like her sickle cell pain crises. Patient states pain has been constant for 2 days. Patient denies any history of fever or nausea/vomiting or other pain. The patient gives her pain a score of 8/10 Location: Bilateral upper extremities, right knee Duration: 2 days Quality: Sickle cell pain crisis Severity: 8/10 Modifying factors: [see above] Context: [see above] Mode of transportation: [not driving] ED Past Medical Hx - Past Medical History Previous Medical History?: Yes Hx Deep Vein Thrombosis: Yes (L Arm) Hx Sickle Cell Disease: Yes Additional medical history: DVT left arm 07/2015, sleep apnea - Surgical History Past Surgical History?: Yes Hx Cholecystectomy: Yes Additional Surgical History: X 2. TONSILLECTOMY. Splenectomy - Family History Family history: no significant - Social History Smoking Status: Never Smoker Substance Use Type: None (denies illicit drug use) - Medications Home Medications: Home Medications Medication Instructions Recorded Confirmed Last Taken Type Folic Acid [Folvite] 1 mg PO QDAY #30 tablet 04/14/16 01/03/17 06/02/16 Rx Hydroxyurea [Hydrea] 500 mg PO DAILY 01/03/17 01/03/17 Unknown History Clindamycin [Clindamycin CAP] 600 mg PO BID #14 capsule 01/04/17 Unknown Rx Oxycodone HCl/Acetaminophen 1 each PO Q6HR PRN #20 tablet 01/04/17 Unknown Rx [Percocet 10/325 mg] ED Review of Systems ROS: Stated complaint: ARMS AND LEG PAIN SICKLE CELL PAIN Other details as noted in HPI Constitutional: denies: fever Eyes: denies: eye pain ENT: denies: ear pain Cardiovascular: denies: chest pain Gastrointestinal: denies: abdominal pain, nausea, vomiting Genitourinary: denies: dysuria Musculoskeletal: arthralgia, myalgia. denies: back pain Neurological: denies: headache Hematological/Lymphatic: other (sickle cell pain crisis) Physical Exam - Physical Exam Vital Signs: Vital Signs 02/06/17 02/06/17 05:09 08:24 Temperature 98.3 F 97.8 F Pulse Rate 79 72 Respiratory 17 18 Rate Blood Pressure 123/83 Blood Pressure 129/72 [Left] O2 Sat by Pulse 100 100 Oximetry Physical Exam: GENERAL: The patient is well-developed well-nourished female sleeping on stretcher not appearing to be in acute distress. Awakens easily HEENT: Normocephalic. Atraumatic. Extraocular motions are intact. Patient has moist mucous membranes. NECK: Supple. Trachea midline CHEST/LUNGS: Clear to auscultation. There is no respiratory distress noted. HEART/CARDIOVASCULAR: Regular. There is no tachycardia. There is no gallop rub or murmur. ABDOMEN: Abdomen is soft, nontender. Patient has normal bowel sounds. There is no abdominal distention. SKIN: There is no rash. There is no edema. There is no diaphoresis. NEURO: The patient is awake, alert, and oriented. The patient is cooperative. The patient has normal speech MUSCULOSKELETAL: There is no increased warmth of the right knee. There is no tenderness to palpation of the right calf. There is no evidence of acute injury. ED Course Vital Signs 02/06/17 02/06/17 05:09 08:24 Temperature 98.3 F 97.8 F Pulse Rate 79 72 Respiratory 17 18 Rate Blood Pressure 123/83 Blood Pressure 129/72 [Left] O2 Sat by Pulse 100 100 Oximetry - Consultations Consultation #1: 02/06/17 10:28 Hematology paged 02/06/17 10:[address] 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 ED Medical Decision Making - Lab Data Result diagrams: 02/06/17 05:25 Laboratory Tests 02/06/17 02/06/17 05:25 05:25 WBC 10.1 RBC 4.05 Hgb 9.7 L Hct 30.0 L MCV 74 L MCH 24 L MCHC 33 RDW 30.6 H Plt Count 1028 H* Lymph % (Auto) [place] Lymph # [place] Add Manual Diff Complete Total Counted 100 Seg Neutrophils % [place] Seg Neuts % (Manual) 34.0 L Band Neutrophils % 0 Lymphocytes % (Manual) 55.0 H Reactive Lymphs % (Man) 0 Monocytes % (Manual) 7.0 Eosinophils % (Manual) 2.0 Basophils % (Manual) 2.0 H Metamyelocytes % 0 Myelocytes % 0 Promyelocytes % 0 Blast Cells % 0 Nucleated RBC % 1.0 H Seg Neutrophils # Man 3.4 Band Neutrophils # 0.0 Lymphocytes # (Manual) 5.6 H Abs React Lymphs (Man) 0.0 Monocytes # (Manual) 0.7 Eosinophils # (Manual) 0.2 Basophils # (Manual) 0.2 H Metamyelocytes # 0.0 Myelocytes # 0.0 Promyelocytes # 0.0 Blast Cells # 0.0 WBC Morphology Not Reportable Hypersegmented Neuts Not Reportable Hyposegmented Neuts Not Reportable Hypogranular Neuts Not Reportable Smudge Cells Not Reportable Toxic Granulation Not Reportable Toxic Vacuolation Not Reportable Dohle Bodies Not Reportable Pelger-Huet Anomaly Not Reportable Manjula Rods Not Reportable Platelet Estimate Appears increased Clumped Platelets Not Reportable Plt Clumps, EDTA Not Reportable Large Platelets Few Giant Platelets Not Reportable Platelet Satelliting Not Reportable Plt Morphology Comment Not Reportable RBC Morphology Not Reportable Dimorphic RBCs Not Reportable Polychromasia Not Reportable Hypochromasia 2+ Poikilocytosis Not Reportable Anisocytosis 2+ Microcytosis 1+ Macrocytosis Not Reportable Spherocytes Not Reportable Pappenheimer Bodies Not Reportable Sickle Cells Not Reportable Target Cells 2+ Tear Drop Cells Rare Ovalocytes 1+ Helmet Cells Not Reportable Starr-[place] Bodies Not Reportable [place] Rings Not Reportable Luke Cells Not Reportable Bite Cells Not Reportable Crenated Cell Not Reportable Elliptocytes Not Reportable Acanthocytes (Spur) Not Reportable Rouleaux Not Reportable Hemoglobin C Crystals Not Reportable Schistocytes Rare Malaria parasites Not Reportable Percent Retic 1.87 Jack Bodies Not Reportable Hem Pathologist Commnt No HCG, Qual Negative - Differential Diagnosis sickle cell pain crisis Critical care attestation.: If time is entered above; I have spent that time in minutes in the direct care of this critically ill patient, excluding procedure time. ED Disposition Clinical Impression: Sickle cell pain crisis, Elevated platelet count Disposition: ELOPED Is pt being admited?: No Does the pt Need Aspirin: No Condition: Stable Referrals: PRIMARY CARE, [Primary Care Provider] - 3-5 Days Time of Disposition: 13:04 (patient eloped)
[2017-02-06] MEDS ORDERED: ZOFRAN IM ONE (10:51)
[2017-02-06] MEDS ORDERED: DILAUDID IM ONE ×2 (10:52→11:50)
[2017-02-06] MEDS ORDERED: BENADRYL IM ONE (10:52)
[2017-02-06] MEDS: DILAUDID IM ONE ×2 (11:02→11:13)
== END 2017-02-06 13:10 | disposition left against medical advice (07) ==
LOC: ED 02:06
DX: D57.00 Hb-SS disease with crisis, unspecified (principal); R79.9 Abnormal finding of blood chemistry, unspecified
CPT/HCPCS: 36415; 84703; 85007; 85025; 85045; 96372; 99283; J1170; J1200; J2405

== ENCOUNTER 2017-02-17 14:22 | Emergency (ER) | payer MEDICARE | END 2017-02-17 17:30 | disposition left against medical advice (07) | LOC: ED 14:22 | DX: D57.00 Hb-SS disease with crisis, unspecified (principal); Z53.21 Procedure and treatment not carried out due to patient leaving prior to being seen by health care provider ==

== ENCOUNTER 2017-03-04 19:07 | Emergency (ER) | payer MEDICARE | END 2017-03-04 19:46 | disposition left against medical advice (07) | LOC: ED 19:07 | DX: D57.00 Hb-SS disease with crisis, unspecified (principal); Z53.21 Procedure and treatment not carried out due to patient leaving prior to being seen by health care provider ==

== ENCOUNTER 2017-03-19 06:08 | Emergency (ER) | payer MEDICARE ==
[2017-03-19 06:49] LABS: Hematocrit 27.5 % (30.3-42.9); Hemoglobin 8.8 gm/dl (10.1-14.3); Mean Corpuscular HGB Conc 32 % (30-34); Mean Corpuscular Volume 69 fl (79-97); Platelet Count 479 K/mm3 (140-440); Red Blood Count 3.97 M/mm3 (3.65-5.03); Red Cell Distribution Width 27.8 % (13.2-15.2)
[2017-03-19 06:50] LABS: Mean Corpuscular Hemoglobin 22 pg (28-32)
[2017-03-19] MEDS ORDERED: D5NS 0.2% 1,000 ML IV SCH (07:00)
[2017-03-19 07:45] LABS: Band Neutrophils # (Manual) 0.4 K/mm3; Myelocytes # (Manual) 0.1 K/mm3; Total Cells Counted 100
[2017-03-19 07:46] LABS: Anisocytosis 2+; Hypochromasia 2+; Large Platelets Few; Ovalocytes 1+; Target Cells 2+; Tear Drop Cells Rare
[2017-03-19 07:47] LABS: Platelet Estimate Consistent w Auto
[2017-03-19] MEDS ORDERED: DILAUDID IV ONE ×2 (08:10→10:08)
--- NOTE | 2017-03-19 08:12 | Emergency Department Report ---
HPI - General Chief Complaint: Sickle Cell Crisis Time Seen by Provider: 03/19/17 07:17 - HPI HPI: This is a 31-year-old female who presents to the emergency department, dropped off by a family member, with a 2 day history of bilateral arm pain and some generalized back discomfort that she believes is a sickle cell pain crisis. This is usually where she does have her sickle cell pain. She has a history of upper extremity DVT from 2016 but is not currently on any blood thinners. No recent travel or sick contacts at home. She denies any fever, chest pain, shortness of breath, problems with bowel or bladder, numbness or paresthesias or any neurological deficits. She has an appointment with the [facility] but otherwise does not have a consistent primary care physician or administrative sales assistant. She's been taking some oxycodone for her symptoms prior to presentation without any relief. She also takes acid and hydroxyurea. ED Past Medical Hx - Past Medical History Hx Heart Attack/AMI: No Hx Congestive Heart Failure: No Hx Deep Vein Thrombosis: Yes (L Arm) Hx Sickle Cell Disease: Yes Additional medical history: DVT left arm 07/2015, sleep apnea - Surgical History Hx Cholecystectomy: Yes Additional Surgical History: X 2. TONSILLECTOMY. Splenectomy - Social History Smoking Status: Never Smoker Substance Use Type: None - Medications Home Medications: Home Medications Medication Instructions Recorded Confirmed Last Taken Type Folic Acid [Folvite] 1 mg PO QDAY #30 tablet 04/14/16 01/03/17 06/02/16 Rx Hydroxyurea [Hydrea] 500 mg PO DAILY 01/03/17 01/03/17 Unknown History Clindamycin [Clindamycin CAP] 600 mg PO BID #14 capsule 01/04/17 Unknown Rx Oxycodone HCl/Acetaminophen 1 each PO Q6HR PRN #20 tablet 01/04/17 Unknown Rx [Percocet 10/325 mg] ED Review of Systems ROS: Stated complaint: SICKLE CELL CRISIS/ ARM AND BACK PAIN Other details as noted in HPI Comment: All other systems reviewed and negative Constitutional: denies: chills, fever Eyes: denies: eye pain, eye discharge, vision change ENT: denies: ear pain, throat pain Respiratory: denies: cough, shortness of breath, wheezing Cardiovascular: denies: chest pain, palpitations Gastrointestinal: denies: abdominal pain, nausea, diarrhea Genitourinary: denies: urgency, dysuria, discharge Musculoskeletal: back pain, arthralgia, myalgia. denies: joint swelling Skin: denies: rash, lesions Neurological: denies: headache, weakness, paresthesias Physical Exam - Physical Exam Vital Signs: Vital Signs 03/19/17 06:11 Temperature 98 F Pulse Rate 110 H Respiratory 18 Rate Blood Pressure 132/81 O2 Sat by Pulse 98 Oximetry Physical Exam: GENERAL: The patient is well-developed well-nourished. HENT: Normocephalic. Atraumatic. Patient has moist mucous membranes. EYES: Extraocular motions are intact. Pupils equal reactive to light bilaterally. NECK: Supple. Trachea is midline. CHEST/LUNGS: Clear to auscultation. There is no respiratory distress noted. HEART/CARDIOVASCULAR: Regular. There is no tachycardia. There is no murmur. ABDOMEN: Abdomen is soft, nontender. Patient has normal bowel sounds. Obese habitus. SKIN: Skin is warm and dry. NEURO: The patient is awake, alert, and oriented. The patient is cooperative. The patient has no focal neurologic deficits. The patient has normal speech. Cranial nerves II through XII grossly intact. MUSCULOSKELETAL: There is no tenderness or deformity. There is no limitation range of motion. There is no evidence of acute injury. Muscle strength 5/5 upper and lower extremities bilaterally. BACK: No midline thoracic or lumbar tenderness to palpation, step-off or deformity. There is some reproducible mid back bilateral paraspinal tenderness. ED Course Vital Signs 03/19/17 06:11 Temperature 98 F Pulse Rate 110 H Respiratory 18 Rate Blood Pressure 132/81 O2 Sat by Pulse 98 Oximetry ED Medical Decision Making - Lab Data Result diagrams: 03/19/17 06:27 03/19/17 08:29 - Radiology Data Radiology results: report reviewed Bilateral upper extremity venous Doppler negative for DVT. - Medical Decision Making Patient presents with a few days of bilateral arm pain and back pain which is consistent with her previous sickle cell pain crisis. Hemoglobin is 8.8 which is also consistent with previous visits, as is the reticulocyte count of 4. Vital signs stable including being afebrile. Secondary to her history of DVT, bilateral upper extremity venous Doppler were done that was negative for any acute process. She was given IV fluid and pain medication and upon reevaluation she is feeling improved. She has an appointment in 2 weeks with [facility] but also gave her a referral for Dr. Ragsdale. I checked the [place] prescription monitoring which shows that she filled multiple Percocet yesterday and therefore I did not prescribe any narcotic pain medication for her for outpatient. She was encouraged to return to the emergency Department with any worsening of her symptoms or any acute distress. She does not have any chest pain, shortness of breath or any fever and therefore is low suspicion for any chest crisis. - Differential Diagnosis sickle cell pain crisis, muscle strain, fibromyalgia Critical Care Time: No Critical care attestation.: If time is entered above; I have spent that time in minutes in the direct care of this critically ill patient, excluding procedure time. ED Disposition Clinical Impression: Sickle cell crisis Sickle cell anemia Qualifiers: Sickle-cell associated disorders: with unspecified crisis Qualified Code(s): D57.00 - Hb-SS disease with crisis, unspecified Arm pain Qualifiers: Laterality: bilateral Qualified Code(s): M79.601 - Pain in right arm Back pain Qualifiers: Back pain location: back pain in unspecified location Chronicity: unspecified Back pain laterality: bilateral Qualified Code(s): M54.9 - Dorsalgia, unspecified Disposition: DC-01 TO HOME OR SELFCARE Is pt being admited?: No Condition: Stable Instructions: Sickle Cell Crisis (ED), Arthralgia (ED), Back Pain (ED) Additional Instructions: Please follow up with the sickle cell clinic as soon as possible. I have also given a referral for a local administrative sales assistant, Dr. Ragsdale. Return to the emergency Department with any worsening of your symptoms, shortness of breath or chest pain, development of fever, or any acute distress. Referrals: PRIMARY CARE, [Primary Care Provider] - BRITNI SHARP DO [Staff Physician] - 3-5 Days Time of Disposition: 10:51
[2017-03-19 08:43] LABS: BUN/Creatinine Ratio 20; Blood Urea Nitrogen 8 mg/dL (7-17); Calcium 8.2 mg/dL (8.4-10.2); Hemolysis Index 15
[2017-03-19] MEDS ORDERED: BENADRYL IV ONE (09:10)
[2017-03-19 11:32] VITALS: BP 116/66
== END 2017-03-19 11:44 | disposition home or self-care (01) ==
LOC: ED 06:08
DX: D57.00 Hb-SS disease with crisis, unspecified (principal); M79.601 Pain in right arm; M54.9 Dorsalgia, unspecified
CPT/HCPCS: 36415; 80048; 84703; 85007; 85025; 85045; 93970; 96361; 96374; 96375; 96376; 99284; J1170; J1200

== ENCOUNTER 2017-03-19 20:46 | Emergency (ER) | payer MEDICARE ==
[2017-03-19 20:59] VITALS: BP 140/87
[2017-03-19] MEDS ORDERED: D5NS 0.2% 1,000 ML IV SCH (23:00)
== END 2017-03-19 23:20 | disposition left against medical advice (07) ==
LOC: ED 20:46
DX: M54.5 Low back pain (principal); Z53.21 Procedure and treatment not carried out due to patient leaving prior to being seen by health care provider

== ENCOUNTER 2017-03-27 04:59 | Emergency (ER) | payer MEDICARE ==
[2017-03-27] MEDS ORDERED: D5NS 0.2% 1,000 ML IV SCH (06:00)
[2017-03-27 06:13] LABS: Hematocrit 30.4 % (30.3-42.9); Hemoglobin 9.2 gm/dl (10.1-14.3); Mean Corpuscular HGB Conc 30 % (30-34); Platelet Count 855 K/mm3 (140-440)
[2017-03-27 06:22] LABS: Mean Corpuscular Hemoglobin 20 pg (28-32); Mean Corpuscular Volume 68 fl (79-97); Red Cell Distribution Width 26.4 % (13.2-15.2)
[2017-03-27 07:13] LABS: Basophils % (Manual) 0 % (0.0-1.8); Total Cells Counted 100
[2017-03-27 07:14] LABS: Anisocytosis 1+; Hypochromasia 1+; Sickle Cells 1+; Target Cells 1+
[2017-03-27 07:15] LABS: Platelet Estimate Consistent w Auto
[2017-03-27 08:23] LABS: Bacteria,Urine 1+ /HPF (Negative); Bilirubin,Urine NEG (Negative); Blood,Urine NEG (Negative); Color,Urine Yellow (Yellow); Mucus,Urine FEW /HPF; Nitrite,Urine NEG (Negative); Protein,Urine <15 mg/dL mg/dL (Negative); WBC,Urine < 1.0 /HPF (0.0-6.0)
[2017-03-27] MEDS ORDERED: DILAUDID IV ONE ×4 (08:29→15:00)
[2017-03-27] MEDS ORDERED: ZOFRAN IV ONE (08:29)
[2017-03-27] MEDS ORDERED: BENADRYL IV ONE ×2 (08:29→10:35)
--- NOTE | 2017-03-27 08:33 | Emergency Department Report ---
ED General Adult HPI - General Chief complaint: Sickle Cell Crisis Stated complaint: ARMS AND LOWER BACK PAIN SICKLE CELL CRISIS Time Seen by Provider: 03/27/17 07:33 Source: patient Mode of arrival: Ambulatory Limitations: No Limitations - History of Present Illness Initial comments: 31-year-old female with a past medical history of sickle cell SC, previous left arm DVT status post PICC line, sleep apnea, and previous cholecystectomy presents to the hospital with complaints of lower back and bilateral arm pain 2 days secondary to sickle cell crisis. Pain is rated at 9/10 in intensity. No aggravating factors. No improvement or Percocet 10 mg. Pain is constant. No complaints of fever, chest pain, shortness of breath, nausea, vomiting, dysuria, or focal motor or sensory deficit. Her doctors are [facility] affiliated. Severity scale (0 -10): 8 - Related Data Home Medications Medication Instructions Recorded Confirmed Last Taken Hydroxyurea [Hydrea] 500 mg PO DAILY 01/03/17 01/03/17 Unknown Previous Rx's Medication Instructions Recorded Last Taken Type Folic Acid [Folvite] 1 mg PO QDAY #30 tablet 04/14/16 06/02/16 Rx Clindamycin [Clindamycin CAP] 600 mg PO BID #14 capsule 01/04/17 Unknown Rx Aspirin [Aspirin EC] 81 mg PO DAILY #30 tablet. 03/27/17 Unknown Rx Oxycodone HCl/Acetaminophen 1 each PO Q6HR PRN #15 tablet 03/27/17 Unknown Rx [Percocet 10/325 mg] Allergies Allergy/AdvReac Type Severity Reaction Status Date / Time morphine Allergy Rash Verified 01/01/17 15:39 ED Review of Systems ROS: Stated complaint: ARMS AND LOWER BACK PAIN SICKLE CELL CRISIS Other details as noted in HPI Comment: All other systems reviewed and negative Other: Constitutional: No fevers chills Eyes: No eye pain visual changes ENT: No ear pain or throat pain Neck: Denies pain Respiratory: Denies cough wheezing shortness of breath Cardiovascular: Denies chest pain, palpitations, syncope GI: Denies abdominal pain, nausea, vomiting, diarrhea : Denies dysuria, urinary frequency, or urgency Musculoskeletal: As per HPI Skin: Denies rash, lesions, erythema Neurologic: Denies headache, numbness, weakness Psychiatric: Denies suicidal ideation, hallucinations Hematological/lymphatic: Denies easy bruising, lymphadenopathy ED Past Medical Hx - Past Medical History Previous Medical History?: Yes Hx Heart Attack/AMI: No Hx Congestive Heart Failure: No Hx Deep Vein Thrombosis: Yes (L Arm) Hx Sickle Cell Disease: Yes Additional medical history: DVT left arm 07/2015, sleep apnea - Surgical History Past Surgical History?: Yes Hx Cholecystectomy: Yes Additional Surgical History: X 2. TONSILLECTOMY. Splenectomy - Social History Smoking Status: Never Smoker Substance Use Type: None - Medications Home Medications: Home Medications Medication Instructions Recorded Confirmed Last Taken Type Folic Acid [Folvite] 1 mg PO QDAY #30 tablet 04/14/16 01/03/17 06/02/16 Rx Hydroxyurea [Hydrea] 500 mg PO DAILY 01/03/17 01/03/17 Unknown History Clindamycin [Clindamycin CAP] 600 mg PO BID #14 capsule 01/04/17 Unknown Rx Aspirin [Aspirin EC] 81 mg PO DAILY #30 tablet. 03/27/17 Unknown Rx Oxycodone HCl/Acetaminophen 1 each PO Q6HR PRN #15 tablet 03/27/17 Unknown Rx [Percocet 10/325 mg] ED Physical Exam - General Limitations: No Limitations - Other Other exam information: General: No limitations, patient is alert in no acute distress Head exam: Atraumatic, normocephalic Eyes exam: Normal appearance ENT: Moist mucous membrane, normal oropharynx Neck exam: Normal inspection, full range of motion, no meningismus nontender Respiratory exam: Clear to auscultation bilateral, no wheezes, rales, crackles Cardiovascular: Normal rate and rhythm, normal heart sounds Abdomen: Soft, nondistended, and nontender, with normal bowel sounds, no rebound, or guarding Extremity: Full range of motion normal inspection no deformity Back: Normal Inspection, full range of motion, no tenderness Neurologic: Alert, oriented x3, cranial nerves intact, no motor or sensory deficit Psychiatric: normal affect, normal mood Skin: Warm, dry, intact ED Course Vital Signs 03/27/17 03/27/17 03/27/17 05:34 07:50 07:58 Temperature 98.1 F 98.0 F Pulse Rate 87 88 Respiratory 18 12 Rate Blood Pressure 111/74 Blood Pressure 106/51 [Left] O2 Sat by Pulse 99 96 97 Oximetry 03/27/17 03/27/17 03/27/17 08:00 08:16 08:30 Temperature Pulse Rate 88 88 92 H Respiratory 12 21 20 Rate Blood Pressure 106/51 106/51 106/51 Blood Pressure [Left] O2 Sat by Pulse 100 100 100 Oximetry 03/27/17 03/27/17 03/27/17 08:46 09:00 09:16 Temperature Pulse Rate 99 H 98 H 96 H Respiratory 12 13 19 Rate Blood Pressure 106/51 106/51 106/51 Blood Pressure [Left] O2 Sat by Pulse 98 100 100 Oximetry 03/27/17 03/27/17 03/27/17 09:29 09:30 09:37 Temperature 98.3 F Pulse Rate 98 H 94 H Respiratory 14 13 20 Rate Blood Pressure 106/51 Blood Pressure 102/55 [Left] O2 Sat by Pulse 99 99 Oximetry 03/27/17 03/27/17 09:59 11:36 Temperature Pulse Rate Respiratory 16 14 Rate Blood Pressure Blood Pressure [Left] O2 Sat by Pulse Oximetry ED Medical Decision Making - Lab Data Result diagrams: 03/27/17 05:50 Lab Results 03/27/17 03/27/17 03/27/17 Range/Units 05:50 05:50 07:45 WBC 11.4 H (4.5-11.0) K/mm3 RBC 4.50 (3.65-5.03) M/mm3 Hgb 9.2 L (10.1-14.3) gm/dl Hct 30.4 (30.3-42.9) % MCV 68 L (79-97) fl MCH 20 L (28-32) pg MCHC 30 (30-34) % RDW 26.4 H (13.2-15.2) % Plt Count 855 H (140-440) K/mm3 Lymph % (Auto) [employer] Lymph # Ms Sql Developer Add Manual Diff Complete Total Counted 100 Seg Neutrophils % Ms [employer] Developer Seg Neuts % (Manual) 48.0 (40.0-70.0) % Band Neutrophils % 0 % Lymphocytes % (Manual) 42.0 H (13.4-35.0) % Reactive Lymphs % (Man) 0 % Monocytes % (Manual) 8.0 H (0.0-7.3) % Eosinophils % (Manual) 2.0 (0.0-4.3) % Basophils % (Manual) 0 (0.0-1.8) % Metamyelocytes % 0 % Myelocytes % 0 % Promyelocytes % 0 % Blast Cells % 0 % Nucleated RBC % 4.0 H (0.0-0.9) % Seg Neutrophils # Man 5.5 (1.8-7.7) K/mm3 Band Neutrophils # 0.0 K/mm3 Lymphocytes # (Manual) 4.8 (1.2-5.4) K/mm3 Abs React Lymphs (Man) 0.0 K/mm3 Monocytes # (Manual) 0.9 H (0.0-0.8) K/mm3 Eosinophils # (Manual) 0.2 (0.0-0.4) K/mm3 Basophils # (Manual) 0.0 (0.0-0.1) K/mm3 Metamyelocytes # 0.0 K/mm3 Myelocytes # 0.0 K/mm3 Promyelocytes # 0.0 K/mm3 Blast Cells # 0.0 K/mm3 WBC Morphology Not Reportable Hypersegmented Neuts Not Reportable Hyposegmented Neuts Not Reportable Hypogranular Neuts Not Reportable Smudge Cells Not Reportable Toxic Granulation Not Reportable Toxic Vacuolation Not Reportable Dohle Bodies Not Reportable Pelger-Huet Anomaly Not Reportable Manjula Rods Not Reportable Platelet Estimate Consistent w auto Clumped Platelets Not Reportable Plt Clumps, EDTA Not Reportable Large Platelets Not Reportable Giant Platelets Not Reportable Platelet Satelliting Not Reportable Plt Morphology Comment Not Reportable RBC Morphology Not Reportable Dimorphic RBCs Not Reportable Polychromasia Not Reportable Hypochromasia 1+ Poikilocytosis Not Reportable Anisocytosis 1+ Microcytosis Not Reportable Macrocytosis Not Reportable Spherocytes Not Reportable Pappenheimer Bodies Not Reportable Sickle Cells 1+ Target Cells 1+ Tear Drop Cells Not Reportable Ovalocytes Not Reportable Helmet Cells Not Reportable Starr-[place] Bodies Not Reportable [place] Rings Not Reportable [place] Cells Not Reportable Bite Cells Not Reportable Crenated Cell Not Reportable Elliptocytes Not Reportable Acanthocytes (Spur) Not Reportable Rouleaux Not Reportable Hemoglobin C Crystals Not Reportable Schistocytes Not Reportable Malaria parasites Not Reportable Percent Retic 1.53 (0.78-2.58) % Jack Bodies Not Reportable Hem Pathologist Commnt No HCG, Qual Negative (Negative) Urine Color Yellow (Yellow) Urine Turbidity Clear (Clear) Urine pH 6.0 (5.0-7.0) Ur Specific [place] 1.014 (1.003-1.030) Urine Protein <15 mg/dl (Negative) mg/dL Urine Glucose (UA) Neg (Negative) mg/dL Urine Ketones Neg (Negative) mg/dL Urine Blood Neg (Negative) Urine Nitrite Neg (Negative) Urine Bilirubin Neg (Negative) Urine Urobilinogen 2.0 (<2.0) mg/dL Ur Leukocyte Esterase Neg (Negative) Urine WBC (Auto) < 1.0 (0.0-6.0) /HPF Urine RBC (Auto) 2.0 (0.0-6.0) /HPF U Epithel Cells (Auto) 5.0 (0-13.0) /HPF Urine Bacteria (Auto) 1+ (Negative) /HPF Urine Mucus Few /HPF - Medical Decision Making During ED stay patient received IV fluids and multiple doses of Dilaudid, Benadryl, and Zofran. Positive improvement symptoms prior to discharge. H&H not significantly decreased and retic count normal. Patient discharged home with symptomatic treatment. - Differential Diagnosis UTI, sickle cell crisis, aplastic crisis, MSK pain Critical Care Time: No Critical care attestation.: If time is entered above; I have spent that time in minutes in the direct care of this critically ill patient, excluding procedure time. ED Disposition Clinical Impression: Sickle cell pain crisis, Thrombocytosis Disposition: TO HOME OR SELFCARE Is pt being admited?: No Condition: Stable Instructions: Sickle Cell Crisis (ED) Additional Instructions: Take the pain medication as needed. Your platelet count is elevated and after consultation with our sheet sewer, aspirin 81 mg per day has been recommended. Follow with the own sheet sewer at the [facility]. Return if symptoms worsen. Prescriptions: Aspirin [Aspirin EC] 81 mg PO DAILY #30 tablet. Oxycodone HCl/Acetaminophen [Percocet 10/325 mg] 1 each PO Q6HR PRN #15 tablet PRN Reason: Pain Referrals: [facility] [Other] - 3-5 Days Time of Disposition: 14:51
[2017-03-27] MEDS ORDERED: DILAUDID IV NR (11:30)
[2017-03-27 16:37] VITALS: BP 102/60
== END 2017-03-27 15:52 | disposition home or self-care (01) ==
LOC: ED 04:59
DX: D57.00 Hb-SS disease with crisis, unspecified (principal); D47.3 Essential (hemorrhagic) thrombocythemia; I82.622 Acute embolism and thrombosis of deep veins of left upper extremity; Z88.5 Allergy status to narcotic agent
CPT/HCPCS: 36415; 81001; 84703; 85007; 85025; 85045; 96361; 96374; 96375; 96376; 99283; J1170; J1200; J2405

== ENCOUNTER 2017-04-03 03:55 | Emergency (ER) | payer MEDICARE ==
[2017-04-03] MEDS ORDERED: D5NS 0.2% 1,000 ML IV SCH (05:00)
[2017-04-03 12:00] VITALS: BP 111/71
[2017-04-03] MEDS ORDERED: NACL 0.9% 1000 ML 1,000 ML IV ONE (12:13)
[2017-04-03] MEDS ORDERED: DILAUDID IV ONE (12:13)
[2017-04-03] MEDS ORDERED: ZOFRAN IV ONE (12:13)
--- NOTE | 2017-04-03 12:18 | Emergency Department Report ---
ED General Adult HPI - General Chief complaint: Sickle Cell Crisis Stated complaint: BACK AND LEG PAIN Time Seen by Provider: 04/03/17 12:06 Source: patient Mode of arrival: Ambulatory Limitations: No Limitations - History of Present Illness Initial comments: Patient is 31 years old female history of sickle cell disease who presented with acute lower back pain and bilateral lower leg pain for the last 2 days. Patient has similar episodes a few weeks ago seen in the ER for the same. Patient stated that she get better at that time and the symptoms district then back. Patient denied any chest pain, shortness of breath cough or fever. No other complaint at this moment. Severity scale (0 -10): 0 - Related Data Home Medications Medication Instructions Recorded Confirmed Last Taken Hydroxyurea [Hydrea] 500 mg PO DAILY 01/03/17 01/03/17 Unknown Previous Rx's Medication Instructions Recorded Last Taken Type Folic Acid [Folvite] 1 mg PO QDAY #30 tablet 04/14/16 06/02/16 Rx Clindamycin [Clindamycin CAP] 600 mg PO BID #14 capsule 01/04/17 Unknown Rx Aspirin [Aspirin EC] 81 mg PO DAILY #30 tablet. 03/27/17 Unknown Rx Oxycodone HCl/Acetaminophen 1 each PO Q6HR PRN #15 tablet 03/27/17 Unknown Rx [Percocet 10/325 mg] Ketorolac [Toradol] 10 mg PO Q6H PRN #20 tablet 04/03/17 Unknown Rx Allergies Allergy/AdvReac Type Severity Reaction Status Date / Time morphine Allergy Rash Verified 01/01/17 15:39 ED Review of Systems ROS: Stated complaint: BACK AND LEG PAIN Other details as noted in HPI Comment: All other systems reviewed and negative Constitutional: denies: chills, fever Respiratory: denies: cough, orthopnea, shortness of breath, SOB with exertion, SOB at rest Cardiovascular: denies: chest pain, palpitations Gastrointestinal: denies: abdominal pain, nausea, vomiting, diarrhea, constipation, hematemesis, hematochezia Musculoskeletal: back pain Neurological: denies: headache, weakness, numbness, paresthesias ED Past Medical Hx - Past Medical History Previous Medical History?: Yes Hx Heart Attack/AMI: No Hx Congestive Heart Failure: No Hx Deep Vein Thrombosis: Yes (L Arm) Hx Sickle Cell Disease: Yes Additional medical history: DVT left arm 07/2015, sleep apnea - Surgical History Hx Cholecystectomy: Yes Additional Surgical History: X 2. TONSILLECTOMY. Splenectomy - Social History Smoking Status: Never Smoker - Medications Home Medications: Home Medications Medication Instructions Recorded Confirmed Last Taken Type Folic Acid [Folvite] 1 mg PO QDAY #30 tablet 04/14/16 01/03/17 06/02/16 Rx Hydroxyurea [Hydrea] 500 mg PO DAILY 01/03/17 01/03/17 Unknown History Clindamycin [Clindamycin CAP] 600 mg PO BID #14 capsule 01/04/17 Unknown Rx Aspirin [Aspirin EC] 81 mg PO DAILY #30 tablet. 03/27/17 Unknown Rx Oxycodone HCl/Acetaminophen 1 each PO Q6HR PRN #15 tablet 03/27/17 Unknown Rx [Percocet 10/325 mg] Ketorolac [Toradol] 10 mg PO Q6H PRN #20 tablet 04/03/17 Unknown Rx ED Physical Exam - General Limitations: No Limitations General appearance: alert, in no apparent distress - Head Head exam: Present: atraumatic, normocephalic - Eye Eye exam: Present: normal appearance, PERRL - ENT ENT exam: Present: normal exam, normal orophraynx, mucous membranes dry - Neck Neck exam: Present: normal inspection, full ROM. Absent: tenderness, meningismus, lymphadenopathy - Respiratory Respiratory exam: Present: normal lung sounds bilaterally. Absent: respiratory distress, wheezes, rales, rhonchi, stridor, chest wall tenderness, accessory muscle use, decreased breath sounds, prolonged expiratory - Cardiovascular Cardiovascular Exam: Present: regular rate, normal rhythm, normal heart sounds - GI/Abdominal GI/Abdominal exam: Present: soft, normal bowel sounds. Absent: distended, tenderness, guarding, rebound, rigid, organomegaly, mass, bruit, pulsatile mass , hernia - Extremities Exam Extremities exam: Present: normal inspection, full ROM, normal capillary refill - Back Exam Back exam: Present: normal inspection, full ROM. Absent: tenderness, CVA tenderness (R), CVA tenderness (L), muscle spasm, paraspinal tenderness, vertebral tenderness - Neurological Exam Neurological exam: Present: alert, oriented X3, CN II-XII intact, normal gait - Skin Skin exam: Present: warm, intact, normal color. Absent: cyanosis, diaphoretic ED Course Vital Signs 04/03/17 04/03/17 04:15 11:59 Temperature 98.9 F 98.6 F Pulse Rate 90 98 H Respiratory 20 18 Rate Blood Pressure 121/77 Blood Pressure 111/71 [Left] O2 Sat by Pulse 96 100 Oximetry ED Medical Decision Making - Lab Data Result diagrams: 04/03/17 16:44 Critical care attestation.: If time is entered above; I have spent that time in minutes in the direct care of this critically ill patient, excluding procedure time. ED Disposition Clinical Impression: Back pain, Sickle cell disease Disposition: DC-01 TO HOME OR SELFCARE Is pt being admited?: No Condition: Stable Instructions: Chronic Pain (ED) Prescriptions: Ketorolac [Toradol] 10 mg PO Q6H PRN #20 tablet PRN Reason: Pain Referrals: PRIMARY CARE, [Primary Care Provider] - 3-5 Days
[2017-04-03] MEDS ORDERED: DILAUDID ONE (14:23)
[2017-04-03 17:09] LABS: Hematocrit 30.7 % (30.3-42.9); Hemoglobin 9.8 gm/dl (10.1-14.3); Mean Corpuscular HGB Conc 32 % (30-34); Platelet Count 639 K/mm3 (140-440); Red Blood Count 4.69 M/mm3 (3.65-5.03)
[2017-04-03 17:12] LABS: Mean Corpuscular Hemoglobin 21 pg (28-32); Mean Corpuscular Volume 65 fl (79-97); Red Cell Distribution Width 26.5 % (13.2-15.2)
[2017-04-03 17:54] LABS: Basophils % (Manual) 0 % (0.0-1.8); Total Cells Counted 100
[2017-04-03 17:57] LABS: Anisocytosis 2+; Hypochromasia 2+; Platelet Estimate Appears Increased
[2017-04-03 17:58] LABS: Target Cells 3+
[2017-04-03 18:00] LABS: Poikilocytosis 1+
[2017-04-03] MEDS ORDERED: TORADOL IM ONE (18:02)
== END 2017-04-03 18:48 | disposition home or self-care (01) ==
LOC: ED 03:55
DX: D57.80 Other sickle-cell disorders without crisis (principal); M54.5 Low back pain; I82.622 Acute embolism and thrombosis of deep veins of left upper extremity; Z88.5 Allergy status to narcotic agent
CPT/HCPCS: 36415; 84703; 85007; 85025; 85045; 96372; 96374; 99283; J1170; J1885

== ENCOUNTER 2017-04-23 18:06 | Emergency (ER) | payer MEDICARE ==
[2017-04-23] MEDS ORDERED: ZOFRAN IV ONE (20:49)
[2017-04-23] MEDS ORDERED: BENADRYL IV ONE (20:49)
[2017-04-23] MEDS ORDERED: TORADOL IV ONE (20:49)
[2017-04-23] MEDS ORDERED: DILAUDID IV ONE ×3 (20:49→22:24)
--- NOTE | 2017-04-23 20:54 | Emergency Department Report ---
HPI - General Chief Complaint: Pain General Time Seen by Provider: 04/23/17 20:44 - HPI HPI: Room 22 The patient is a 31-year-old female presented with a chief complaint of sickle cell pain crisis. The patient states for the past 2 days she's had pain in her left upper extremity and left lower extremity consistent with sickle cell pain crises. Patient denies any preceding trauma. Patient denies any history of fever or nausea/vomiting. The patient gives her pain score of 8.5/10 Location: Left upper extremity, left lower extremity Duration: 2 days Quality: Sickle cell pain Severity:8.5/10 Modifying factors: [see above] Context: [see above] Mode of transportation: [not driving] ED Past Medical Hx - Past Medical History Hx Deep Vein Thrombosis: Yes (L Arm) Hx Sickle Cell Disease: Yes Additional medical history: DVT left arm 07/2015, sleep apnea - Surgical History Hx Cholecystectomy: Yes Additional Surgical History: X 2. TONSILLECTOMY. Splenectomy - Family History Family history: no significant - Social History Smoking Status: Never Smoker Substance Use Type: None (denies illicit drug use) - Medications Home Medications: Home Medications Medication Instructions Recorded Confirmed Last Taken Type Folic Acid [Folvite] 1 mg PO QDAY #30 tablet 04/14/16 01/03/17 06/02/16 Rx Hydroxyurea [Hydrea] 500 mg PO DAILY 01/03/17 01/03/17 Unknown History Clindamycin [Clindamycin CAP] 600 mg PO BID #14 capsule 01/04/17 Unknown Rx Aspirin [Aspirin EC] 81 mg PO DAILY #30 tablet. 03/27/17 Unknown Rx Oxycodone HCl/Acetaminophen 1 each PO Q6HR PRN #15 tablet 03/27/17 Unknown Rx [Percocet 10/325 mg] Ketorolac [Toradol] 10 mg PO Q6H PRN #20 tablet 04/03/17 Unknown Rx Docusate Sodium [Colace] 100 mg PO BID #60 capsule 04/23/17 Unknown Rx Ferrous Sulfate [Feosol 325 MG tab] 325 mg PO TID #90 tablet 04/23/17 Unknown Rx oxyCODONE /ACETAMINOPHEN [Percocet 1 - 2 tab PO Q6HR PRN #14 tablet 04/23/17 Unknown Rx 5/325] ED Review of Systems ROS: Stated complaint: SICKLE CELL PAIN Other details as noted in HPI Constitutional: denies: fever Gastrointestinal: denies: nausea, vomiting Musculoskeletal: myalgia Hematological/Lymphatic: other (sickle cell pain crisis) Physical Exam - Physical Exam Vital Signs: Vital Signs 04/23/17 04/23/17 18:19 20:26 Temperature 98.0 F 98.9 F Pulse Rate 88 87 Respiratory 18 Rate Blood Pressure 117/76 Blood Pressure 128/80 [Left] O2 Sat by Pulse 100 98 Oximetry Physical Exam: GENERAL: The patient is well-developed well-nourished female lying on stretcher not appearing to be in acute distress. [] HEENT: Normocephalic. Atraumatic. Extraocular motions are intact. Patient has moist mucous membranes. NECK: Supple. Trachea midline CHEST/LUNGS: Clear to auscultation. There is no respiratory distress noted. HEART/CARDIOVASCULAR: Regular. There is no tachycardia. There is no gallop rub or murmur. ABDOMEN: Abdomen is soft, nontender. Patient has normal bowel sounds. There is no abdominal distention. SKIN: There is no rash. There is no edema. There is no diaphoresis. NEURO: The patient is awake, alert, and oriented. The patient is cooperative. The patient has normal speech MUSCULOSKELETAL: There is no increased warmth of the left knee or left elbow joints. There is no evidence of acute injury. ED Course Vital Signs 04/23/17 04/23/17 18:19 20:26 Temperature 98.0 F 98.9 F Pulse Rate 88 87 Respiratory 18 Rate Blood Pressure 117/76 Blood Pressure 128/80 [Left] O2 Sat by Pulse 100 98 Oximetry - Reevaluation(s) Reevaluation #1: 04/23/17 21:49 Patient states she has improved but still has pain. Patient states her left upper extremity pain has decreased to 4/10 and her left lower extremity pain has decreased to 7/10 ED Medical Decision Making - Lab Data Result diagrams: 04/23/17 20:49 Laboratory Tests 04/23/17 20:49 WBC 10.9 RBC 3.94 Hgb 8.1 L Hct 25.0 L MCV 63 L MCH 21 L MCHC 32 RDW 26.4 H Plt Count 703 H Lymph % (Auto) Ballet Soloist Lymph # Ballet Soloist Percent Retic 2.62 H - Differential Diagnosis sickle cell pain crisis Critical care attestation.: If time is entered above; I have spent that time in minutes in the direct care of this critically ill patient, excluding procedure time. ED Disposition Clinical Impression: Sickle cell pain crisis, Sickle cell anemia Disposition: TO HOME OR SELFCARE Is pt being admited?: No Does the pt Need Aspirin: No Condition: Stable Instructions: Sickle Cell Crisis (ED) Additional Instructions: Return to the emergency department immediately should you develop worsening symptoms, fever, inability to tolerate food or liquid or any other concerns. 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
[2017-04-23 21:00] LABS: Hemoglobin 8.1 gm/dl (10.1-14.3); Mean Corpuscular HGB Conc 32 % (30-34); Platelet Count 703 K/mm3 (140-440); Red Blood Count 3.94 M/mm3 (3.65-5.03)
[2017-04-23 21:11] LABS: Mean Corpuscular Hemoglobin 21 pg (28-32); Mean Corpuscular Volume 63 fl (79-97); Red Cell Distribution Width 26.4 % (13.2-15.2)
[2017-04-23 22:57] LABS: Anisocytosis 1+; Basophils % (Manual) 0 % (0.0-1.8); Total Cells Counted 100
[2017-04-23 22:58] LABS: Hypochromasia 2+
[2017-04-23 22:59] LABS: Platelet Estimate Consistent w Auto; Target Cells 2+
[2017-04-23 23:16] VITALS: BP 112/54
== END 2017-04-23 23:15 | disposition home or self-care (01) ==
LOC: ED 18:06
DX: D57.00 Hb-SS disease with crisis, unspecified (principal); Z79.82 Long term (current) use of aspirin
CPT/HCPCS: 36415; 85007; 85025; 85045; 96374; 96375; 96376; 99283; J1170; J1200; J1885; J2405

== ENCOUNTER 2017-05-15 01:28 | Emergency (ER) | payer MEDICARE ==
[2017-05-15 03:44] LABS: Mean Corpuscular HGB Conc 32 % (30-34); Platelet Count 496 K/mm3 (140-440)
[2017-05-15 03:49] LABS: Mean Corpuscular Hemoglobin 22 pg (28-32); Mean Corpuscular Volume 68 fl (79-97); Red Cell Distribution Width 29.8 % (13.2-15.2)
[2017-05-15] MEDS ORDERED: D5NS 0.2% 1,000 ML IV SCH (04:00)
[2017-05-15 07:08] LABS: Anisocytosis 1+; Basophils % (Manual) 0 % (0.0-1.8); Eosinophils % (Manual) 0 % (0.0-4.3); Hypochromasia 1+; Target Cells 2+; Total Cells Counted 100
[2017-05-15 07:09] LABS: Large Platelets Few; Platelet Estimate Consistent w Auto
[2017-05-15] MEDS ORDERED: DILAUDID IM ONE (07:29)
[2017-05-15] MEDS ORDERED: ZOFRAN ODT PO ONE (07:30)
[2017-05-15] MEDS ORDERED: BENADRYL PO ONE (07:30)
--- NOTE | 2017-05-15 07:44 | Emergency Department Report ---
ED General Adult HPI - General Chief complaint: Sickle Cell Crisis Stated complaint: SICKLE CELL Time Seen by Provider: 05/15/17 06:57 Source: patient Mode of arrival: Ambulatory Limitations: No Limitations - History of Present Illness Initial comments: The patient is complaining of bilateral arm and leg pain which she states is typical of her sickle cell crisis. 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 Solares. She took Percocet at home. She states that she had a left arm clot after a midline was placed years ago but no subsequent or prior DVT. She states the pain does not feel at all like that. There is no swelling. She denies fever. She denies any respiratory symptoms. -: Gradual Location: upper extremity, lower extremity Severity scale (0 -10): 6 Quality: aching Consistency: intermittent Improves with: none Worsens with: none Associated Symptoms: denies other symptoms - Related Data Home Medications Medication Instructions Recorded Confirmed Last Taken Hydroxyurea [Hydrea] 500 mg PO DAILY 01/03/17 05/15/17 Unknown Previous Rx's Medication Instructions Recorded Last Taken Type Folic Acid [Folvite] 1 mg PO QDAY #30 tablet 04/14/16 06/02/16 Rx Aspirin [Aspirin EC] 81 mg PO DAILY #30 tablet. 03/27/17 Unknown Rx Oxycodone HCl/Acetaminophen 1 each PO Q6HR PRN #15 tablet 03/27/17 Unknown Rx [Percocet 10/325 mg] Ferrous Sulfate [Feosol 325 MG tab] 325 mg PO TID #90 tablet 04/23/17 Unknown Rx Ondansetron [Zofran Odt] 4 mg PO Q6HR #7 tab.rapdis 05/15/17 Unknown Rx Oxycodone HCl/Acetaminophen 1 each PO Q6HR PRN #14 tablet 05/15/17 Unknown Rx [Percocet 7.5/325 mg] Allergies Allergy/AdvReac Type Severity Reaction Status Date / Time morphine Allergy Rash Verified 01/01/17 15:39 ED Review of Systems ROS: Stated complaint: SICKLE CELL Other details as noted in HPI Constitutional: denies: chills, fever Eyes: denies: eye pain, eye discharge, vision change ENT: denies: ear pain, throat pain Respiratory: denies: cough, shortness of breath, wheezing Cardiovascular: denies: chest pain, palpitations Endocrine: no symptoms reported Gastrointestinal: denies: abdominal pain, nausea, diarrhea Genitourinary: denies: urgency, dysuria, discharge Musculoskeletal: as per HPI. denies: back pain, joint swelling Skin: denies: rash, lesions Neurological: denies: headache, weakness, paresthesias Psychiatric: denies: anxiety, depression Hematological/Lymphatic: denies: easy bleeding, easy bruising ED Past Medical Hx - Past Medical History Hx Heart Attack/AMI: No Hx Congestive Heart Failure: No Hx Deep Vein Thrombosis: Yes (L Arm) Hx Sickle Cell Disease: Yes Additional medical history: DVT left arm 07/2015, sleep apnea - Surgical History Hx Cholecystectomy: Yes Additional Surgical History: X 2. TONSILLECTOMY. Splenectomy - Social History Smoking Status: Never Smoker Substance Use Type: None - Medications Home Medications: Home Medications Medication Instructions Recorded Confirmed Last Taken Type Folic Acid [Folvite] 1 mg PO QDAY #30 tablet 04/14/16 05/15/17 06/02/16 Rx Hydroxyurea [Hydrea] 500 mg PO DAILY 01/03/17 05/15/17 Unknown History Aspirin [Aspirin EC] 81 mg PO DAILY #30 tablet. 03/27/17 05/15/17 Unknown Rx Oxycodone HCl/Acetaminophen 1 each PO Q6HR PRN #15 tablet 03/27/17 05/15/17 Unknown Rx [Percocet 10/325 mg] Ferrous Sulfate [Feosol 325 MG tab] 325 mg PO TID #90 tablet 04/23/17 05/15/17 Unknown Rx Ondansetron [Zofran Odt] 4 mg PO Q6HR #7 tab.rapdis 05/15/17 Unknown Rx Oxycodone HCl/Acetaminophen 1 each PO Q6HR PRN #14 tablet 05/15/17 Unknown Rx [Percocet 7.5/325 mg] ED Physical Exam - General Limitations: No Limitations General appearance: alert, in no apparent distress - Head Head exam: Present: atraumatic, normocephalic - Eye Eye exam: Present: normal appearance, PERRL, EOMI. Absent: scleral icterus - ENT ENT exam: Present: mucous membranes moist - Neck Neck exam: Present: normal inspection - Respiratory Respiratory exam: Present: normal lung sounds bilaterally. Absent: respiratory distress - Cardiovascular Cardiovascular Exam: Present: regular rate, normal rhythm. Absent: systolic murmur, diastolic murmur, rubs, gallop - GI/Abdominal GI/Abdominal exam: Present: soft, normal bowel sounds. Absent: distended, tenderness, guarding, rebound, rigid - Extremities Exam Extremities exam: Present: normal inspection, full ROM, normal capillary refill. Absent: tenderness, pedal edema, joint swelling, calf tenderness - Back Exam Back exam: Present: normal inspection, full ROM. Absent: CVA tenderness (R), CVA tenderness (L) - Neurological Exam Neurological exam: Present: alert, oriented X3, CN II-XII intact. Absent: motor sensory deficit - Psychiatric Psychiatric exam: Present: normal affect, normal mood - Skin Skin exam: Present: warm, dry, intact, normal color. Absent: rash ED Course Vital Signs 05/15/17 05/15/17 05/15/17 03:06 06:34 06:40 Temperature 98.6 F 98.6 F Pulse Rate 88 91 H Respiratory 16 20 20 Rate Blood Pressure 127/71 Blood Pressure 122/70 [Right] O2 Sat by Pulse 100 100 100 Oximetry 05/15/17 07:23 Temperature 97.8 F Pulse Rate 62 Respiratory 18 Rate Blood Pressure Blood Pressure 115/62 [Right] O2 Sat by Pulse Oximetry - Reevaluation(s) Reevaluation #1: Pain improved with IM and by mouth medication. Patient is ready for outpatient disposition. She will be referred to Dr. Cadena. She is encouraged to increase fluid intake. She appears totally comfortable at this time. 05/15/17 08:29 ED Medical Decision Making - Lab Data Result diagrams: 05/15/17 03:12 Laboratory Results - last 24 hr 05/15/17 05/15/17 03:12 03:12 WBC 10.4 RBC 4.10 Hgb 9.0 L Hct 28.0 L MCV 68 L MCH 22 L MCHC 32 RDW 29.8 H Plt Count 496 H Lymph # [employer] Teacher Add Manual Diff Complete Total Counted 100 Seg Neuts % (Manual) 62.0 Band Neutrophils % 0 Lymphocytes % (Manual) 28.0 Reactive Lymphs % (Man) 0 Monocytes % (Manual) 10.0 H Eosinophils % (Manual) 0 Basophils % (Manual) 0 Metamyelocytes % 0 Myelocytes % 0 Promyelocytes % 0 Blast Cells % 0 Nucleated RBC % 9.0 H Seg Neutrophils # Man 6.4 Band Neutrophils # 0.0 Lymphocytes # (Manual) 2.9 Abs React Lymphs (Man) 0.0 Monocytes # (Manual) 1.0 H Eosinophils # (Manual) 0.0 Basophils # (Manual) 0.0 Metamyelocytes # 0.0 Myelocytes # 0.0 Promyelocytes # 0.0 Blast Cells # 0.0 WBC Morphology Not Reportable Hypersegmented Neuts Not Reportable Hyposegmented Neuts Not Reportable Hypogranular Neuts Not Reportable Smudge Cells Not Reportable Toxic Granulation Not Reportable Toxic Vacuolation Not Reportable Dohle Bodies Not Reportable Pelger-Huet Anomaly Not Reportable Manjula Rods Not Reportable Platelet Estimate Consistent w auto Clumped Platelets Not Reportable Plt Clumps, EDTA Not Reportable Large Platelets Few Giant Platelets Not Reportable Platelet Satelliting Not Reportable Plt Morphology Comment Not Reportable RBC Morphology Not Reportable Dimorphic RBCs Not Reportable Polychromasia 1+ Hypochromasia 1+ Poikilocytosis Not Reportable Anisocytosis 1+ Microcytosis 1+ Macrocytosis Not Reportable Spherocytes Not Reportable Pappenheimer Bodies Not Reportable Sickle Cells Not Reportable Target Cells 2+ Tear Drop Cells Not Reportable Ovalocytes Not Reportable Helmet Cells Not Reportable Starr-Candor Bodies Not Reportable [place] Rings Not Reportable Luke Cells Not Reportable Bite Cells Not Reportable Crenated Cell Not Reportable Elliptocytes Not Reportable Acanthocytes (Spur) Not Reportable Rouleaux Not Reportable Hemoglobin C Crystals Not Reportable Schistocytes Not Reportable Malaria parasites Not Reportable Percent Retic 4.63 H Jack Bodies Not Reportable Hem Pathologist Commnt No HCG, Qual Negative Laboratory Results - last 24 hr 05/15/17 05/15/17 03:12 03:12 WBC 10.4 RBC 4.10 Hgb 9.0 L Hct 28.0 L MCV 68 L MCH 22 L MCHC 32 RDW 29.8 H Plt Count 496 H Lymph # [employer] Teacher Add Manual Diff Complete Total Counted 100 Seg Neuts % (Manual) 62.0 Band Neutrophils % 0 Lymphocytes % (Manual) 28.0 Reactive Lymphs % (Man) 0 Monocytes % (Manual) 10.0 H Eosinophils % (Manual) 0 Basophils % (Manual) 0 Metamyelocytes % 0 Myelocytes % 0 Promyelocytes % 0 Blast Cells % 0 Nucleated RBC % 9.0 H Seg Neutrophils # Man 6.4 Band Neutrophils # 0.0 Lymphocytes # (Manual) 2.9 Abs React Lymphs (Man) 0.0 Monocytes # (Manual) 1.0 H Eosinophils # (Manual) 0.0 Basophils # (Manual) 0.0 Metamyelocytes # 0.0 Myelocytes # 0.0 Promyelocytes # 0.0 Blast Cells # 0.0 WBC Morphology Not Reportable Hypersegmented Neuts Not Reportable Hyposegmented Neuts Not Reportable Hypogranular Neuts Not Reportable Smudge Cells Not Reportable Toxic Granulation Not Reportable Toxic Vacuolation Not Reportable Dohle Bodies Not Reportable Pelger-Huet Anomaly Not Reportable Manjula Rods Not Reportable Platelet Estimate Consistent w auto Clumped Platelets Not Reportable Plt Clumps, EDTA Not Reportable Large Platelets Few Giant Platelets Not Reportable Platelet Satelliting Not Reportable Plt Morphology Comment Not Reportable RBC Morphology Not Reportable Dimorphic RBCs Not Reportable Polychromasia 1+ Hypochromasia 1+ Poikilocytosis Not Reportable Anisocytosis 1+ Microcytosis 1+ Macrocytosis Not Reportable Spherocytes Not Reportable Pappenheimer Bodies Not Reportable Sickle Cells Not Reportable Target Cells 2+ Tear Drop Cells Not Reportable Ovalocytes Not Reportable Helmet Cells Not Reportable Starr-Candor Bodies Not Reportable [place] Rings Not Reportable [place] Cells Not Reportable Bite Cells Not Reportable Crenated Cell Not Reportable Elliptocytes Not Reportable Acanthocytes (Spur) Not Reportable Rouleaux Not Reportable Hemoglobin C Crystals Not Reportable Schistocytes Not Reportable Malaria parasites Not Reportable Percent Retic 4.63 H Jack Bodies Not Reportable Hem Pathologist Commnt No HCG, Qual Negative Critical care attestation.: If time is entered above; I have spent that time in minutes in the direct care of this critically ill patient, excluding procedure time. ED Disposition Clinical Impression: Sickle cell pain crisis Disposition: DC-01 TO HOME OR SELFCARE Is pt being admited?: No Does the pt Need Aspirin: No Condition: Stable Instructions: Sickle Cell Crisis (ED) Additional Instructions: Increase fluids. Follow up with running instructor. Return any acute change or problem. Prescriptions: Ondansetron [Zofran Odt] 4 mg PO Q6HR #7 tab.rapdis Oxycodone HCl/Acetaminophen [Percocet 7.5/325 mg] 1 each PO Q6HR PRN #14 tablet PRN Reason: Pain Referrals: BRITNI SOLARES DO [Staff Physician] - 3-5 Days Time of Disposition: 08:30
[2017-05-15 09:08] VITALS: BP 164/54
== END 2017-05-15 09:06 | disposition home or self-care (01) ==
LOC: ED 01:28
DX: D57.00 Hb-SS disease with crisis, unspecified (principal); Z88.6 Allergy status to analgesic agent
CPT/HCPCS: 36415; 84703; 85007; 85025; 85045; 96372; 99283; J1170; Q0162

== ENCOUNTER 2017-05-21 19:05 | Emergency (ER) | payer MEDICARE ==
[2017-05-21 20:20] LABS: Hemoglobin 9.5 gm/dl (10.1-14.3); Mean Corpuscular HGB Conc 32 % (30-34); Platelet Count 923 K/mm3 (140-440); Red Blood Count 4.46 M/mm3 (3.65-5.03)
[2017-05-21 20:21] LABS: Mean Corpuscular Hemoglobin 21 pg (28-32); Mean Corpuscular Volume 67 fl (79-97); Red Cell Distribution Width 28.7 % (13.2-15.2)
[2017-05-21 21:10] LABS: Alanine Aminotransferase 13 units/L (7-56); Albumin 4.6 g/dL (3.9-5); BUN/Creatinine Ratio 12; Blood Urea Nitrogen 6 mg/dL (7-17); Calcium 9.3 mg/dL (8.4-10.2); Hemolysis Index 4
[2017-05-21 22:32] LABS: Basophils % (Manual) 0 % (0.0-1.8); Eosinophils % (Manual) 0 % (0.0-4.3); Total Cells Counted 100
[2017-05-21 22:34] LABS: Anisocytosis 1+
[2017-05-21 22:35] LABS: Hypochromasia 1+; Platelet Estimate Consistent w Auto; Target Cells 2+
[2017-05-22] MEDS ORDERED: NACL 0.9% 1000 ML 1,000 ML IV ONE (00:47)
[2017-05-22] MEDS ORDERED: DILAUDID IV ONE (00:47)
[2017-05-22] MEDS ORDERED: ZOFRAN IV ONE (00:47)
[2017-05-22] MEDS ORDERED: DILAUDID IM ONE (01:57)
--- NOTE | 2017-05-22 02:03 | Emergency Department Report ---
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 She takes MS Contin and Percocet at home. She had recently been evaluated at [facility]. However she does not have a surgical instrument maker. She denies chest pain, denies fever. No shortness of breath. Pain is 10 on 10 achy in severity. Severity scale (0 -10): 7 - Related Data Home Medications Medication Instructions Recorded Confirmed Last Taken Hydroxyurea [Hydrea] 500 mg PO DAILY 01/03/17 05/15/17 Unknown Previous Rx's Medication Instructions Recorded Last Taken Type Folic Acid [Folvite] 1 mg PO QDAY #30 tablet 04/14/16 06/02/16 Rx Aspirin [Aspirin EC] 81 mg PO DAILY #30 tablet. 03/27/17 Unknown Rx Oxycodone HCl/Acetaminophen 1 each PO Q6HR PRN #15 tablet 03/27/17 Unknown Rx [Percocet 10/325 mg] Ferrous Sulfate [Feosol 325 MG tab] 325 mg PO TID #90 tablet 04/23/17 Unknown Rx Ondansetron [Zofran Odt] 4 mg PO Q6HR #7 tab.rapdis 05/15/17 Unknown Rx Oxycodone HCl/Acetaminophen 1 each PO Q6HR PRN #14 tablet 05/15/17 Unknown Rx [Percocet 7.5/325 mg] Allergies Allergy/AdvReac Type Severity Reaction Status Date / Time morphine Allergy Rash Verified 01/01/17 15:39 ED Review of Systems ROS: Stated complaint: SICKLE CELL Other details as noted in HPI Comment: All other systems reviewed and negative Constitutional: denies: chills, fever Respiratory: denies: cough Cardiovascular: denies: chest pain ED Past Medical Hx - Past Medical History Hx Heart Attack/AMI: No Hx Congestive Heart Failure: No Hx Deep Vein Thrombosis: Yes (L Arm) Hx Sickle Cell Disease: Yes Additional medical history: DVT left arm 07/2015, sleep apnea - Surgical History Hx Cholecystectomy: Yes Additional Surgical History: X 2. TONSILLECTOMY. Splenectomy - Social History Smoking Status: Never Smoker Substance Use Type: None - Medications Home Medications: Home Medications Medication Instructions Recorded Confirmed Last Taken Type Folic Acid [Folvite] 1 mg PO QDAY #30 tablet 04/14/16 05/15/17 06/02/16 Rx Hydroxyurea [Hydrea] 500 mg PO DAILY 01/03/17 05/15/17 Unknown History Aspirin [Aspirin EC] 81 mg PO DAILY #30 tablet. 03/27/17 05/15/17 Unknown Rx Oxycodone HCl/Acetaminophen 1 each PO Q6HR PRN #15 tablet 03/27/17 05/15/17 Unknown Rx [Percocet 10/325 mg] Ferrous Sulfate [Feosol 325 MG tab] 325 mg PO TID #90 tablet 04/23/17 05/15/17 Unknown Rx Ondansetron [Zofran Odt] 4 mg PO Q6HR #7 tab.rapdis 05/15/17 Unknown Rx Oxycodone HCl/Acetaminophen 1 each PO Q6HR PRN #14 tablet 05/15/17 Unknown Rx [Percocet 7.5/325 mg] ED Physical Exam - General Limitations: Physical Limitation General appearance: alert, in no apparent distress - Head Head exam: Present: atraumatic, normocephalic - Eye Eye exam: Present: normal appearance - ENT ENT exam: Present: mucous membranes moist - Neck Neck exam: Present: normal inspection - Respiratory Respiratory exam: Present: normal lung sounds bilaterally. Absent: respiratory distress, wheezes, rales, rhonchi - Cardiovascular Cardiovascular Exam: Present: regular rate, normal rhythm. Absent: systolic murmur, diastolic murmur, rubs, gallop - GI/Abdominal GI/Abdominal exam: Present: soft. Absent: distended, tenderness, guarding, rebound - Extremities Exam Extremities exam: Present: normal inspection - Back Exam Back exam: Present: normal inspection - Neurological Exam Neurological exam: Present: alert, oriented X3 - Psychiatric Psychiatric exam: Present: normal affect, normal mood - Skin Skin exam: Present: warm, dry, intact, normal color. Absent: rash ED Course Vital Signs 05/21/17 19:17 Temperature 99.1 F Pulse Rate 94 H Respiratory 18 Rate Blood Pressure 122/77 Blood Pressure 122/77 [Right] O2 Sat by Pulse 97 Oximetry ED Medical Decision Making - Lab Data Result diagrams: 05/21/17 20:12 05/21/17 20:12 Laboratory Results - last 24 hr 05/21/17 05/21/17 20:12 20:12 WBC 12.1 H RBC 4.46 Hgb 9.5 L Hct 30.0 L MCV 67 L MCH 21 L MCHC 32 RDW 28.7 H Plt Count 923 H Add Manual Diff Complete Total Counted 100 Seg Neuts % (Manual) 71.0 H Band Neutrophils % 0 Lymphocytes % (Manual) 20.0 Reactive Lymphs % (Man) 0 Monocytes % (Manual) 9.0 H Eosinophils % (Manual) 0 Basophils % (Manual) 0 Metamyelocytes % 0 Myelocytes % 0 Promyelocytes % 0 Blast Cells % 0 Nucleated RBC % Not Reportable Seg Neutrophils # Man 8.6 H Band Neutrophils # 0.0 Lymphocytes # (Manual) 2.4 Abs React Lymphs (Man) 0.0 Monocytes # (Manual) 1.1 H Eosinophils # (Manual) 0.0 Basophils # (Manual) 0.0 Metamyelocytes # 0.0 Myelocytes # 0.0 Promyelocytes # 0.0 Blast Cells # 0.0 WBC Morphology Not Reportable Hypersegmented Neuts Not Reportable Hyposegmented Neuts Not Reportable Hypogranular Neuts Not Reportable Smudge Cells Not Reportable Toxic Granulation Not Reportable Toxic Vacuolation Not Reportable Dohle Bodies Not Reportable Pelger-Huet Anomaly Not Reportable [place] Rods Not Reportable Platelet Estimate Consistent w auto Clumped Platelets Not Reportable Plt Clumps, EDTA Not Reportable Large Platelets Not Reportable Giant Platelets Not Reportable Platelet Satelliting Not Reportable Plt Morphology Comment Not Reportable RBC Morphology Not Reportable Dimorphic RBCs Not Reportable Polychromasia 1+ Hypochromasia 1+ Poikilocytosis Not Reportable Anisocytosis 1+ Microcytosis Not Reportable Macrocytosis Not Reportable Spherocytes Not Reportable Pappenheimer Bodies Not Reportable Sickle Cells Not Reportable Target Cells 2+ Tear Drop Cells Not Reportable Ovalocytes Not Reportable Helmet Cells Not Reportable [place] Bodies Not Reportable [place] Rings Not Reportable Mongo Cells Not Reportable Bite Cells Not Reportable Crenated Cell Not Reportable Elliptocytes Not Reportable Acanthocytes (Spur) Not Reportable Rouleaux Not Reportable Hemoglobin C Crystals Not Reportable Schistocytes Not Reportable Malaria parasites Not Reportable Percent Retic 2.24 Jack Bodies Not Reportable Hem Pathologist Commnt No Sodium 136 L Potassium 4.8 Chloride 99.2 Carbon Dioxide 22 Anion Gap 20 BUN 6 L Creatinine 0.5 L Estimated GFR > 60 BUN/Creatinine Ratio 12 Glucose 111 H Calcium 9.3 Total Bilirubin 1.00 AST 17 ALT 13 Alkaline Phosphatase 74 Total Protein 7.7 Albumin 4.6 Albumin/Globulin Ratio 1.5 Vital Signs - 24 hr 05/21/17 19:17 Temperature 99.1 F Pulse Rate 94 H Respiratory 18 Rate Blood Pressure 122/77 Blood Pressure 122/77 [Right] O2 Sat by Pulse 97 Oximetry - Medical Decision Making Ms. Eaton is a 31-year-old female who presents with back pain and bilateral leg pain. She has a history of hemoglobin SC sickle cell disease. Hemoglobin and hematocrit at baseline for patient. No evidence of vaso-occlusive crisis at this time. Discharged home. Given 1 dose IM hydromorphone 1 mg prior to discharge Critical care attestation.: If time is entered above; I have spent that time in minutes in the direct care of this critically ill patient, excluding procedure time. ED Disposition Clinical Impression: Pain, Sickle cell disease Disposition: DC-01 TO HOME OR SELFCARE Is pt being admited?: No Does the pt Need Aspirin: No Condition: Stable Instructions: Sickle Cell Crisis (ED) Referrals: [facility] [Outside] - 3-5 Days Time of Disposition: 02:03
[2017-05-22] MEDS ORDERED: ZOFRAN IM ONE (02:04)
[2017-05-22 02:47] VITALS: BP 114/76
== END 2017-05-22 02:49 | disposition home or self-care (01) ==
LOC: ED 19:05
DX: D57.219 Sickle-cell/Hb-C disease with crisis, unspecified (principal); G47.30 Sleep apnea, unspecified; Z88.5 Allergy status to narcotic agent; Z86.718 Personal history of other venous thrombosis and embolism; Z90.49 Acquired absence of other specified parts of digestive tract; Z90.81 Acquired absence of spleen; Z79.82 Long term (current) use of aspirin
CPT/HCPCS: 36415; 80053; 85007; 85025; 85045; 96372; 99283; J1170; J2405; J7030

== ENCOUNTER 2017-06-18 06:44 | Emergency (ER) | payer MEDICARE ==
[2017-06-18 06:49] VITALS: BP 124/73
[2017-06-18] MEDS ORDERED: D5NS 0.2% 1,000 ML IV SCH (07:00)
[2017-06-18 07:46] LABS: Hematocrit 27.3 % (30.3-42.9); Hemoglobin 8.9 gm/dl (10.1-14.3); Mean Corpuscular HGB Conc 33 % (30-34); Mean Corpuscular Volume 70 fl (79-97); Platelet Count 826 K/mm3 (140-440)
[2017-06-18 08:03] LABS: Mean Corpuscular Hemoglobin 23 pg (28-32)
[2017-06-18 10:39] LABS: Band Neutrophils # (Manual) 0.1 K/mm3; Basophils % (Manual) 0 % (0.0-1.8); Total Cells Counted 100
[2017-06-18 10:40] LABS: Anisocytosis 1+; Hypochromasia 1+; Poikilocytosis 1+
[2017-06-18 10:41] LABS: Platelet Estimate Consistent w Auto; Target Cells 2+
== END 2017-06-18 08:00 | disposition left against medical advice (07) ==
LOC: ED 06:44
DX: D57.1 Sickle-cell disease without crisis (principal); Z53.21 Procedure and treatment not carried out due to patient leaving prior to being seen by health care provider
CPT/HCPCS: 36415; 84703; 85007; 85025; 85045